=== PATIENT | male | born 1955 | race Caucasian/White ===

== ENCOUNTER → 2017-01-17 | Outpatient (CLI) | payer BC ==
[~2017-01-17] MED LIST: ASPI81TA28 PO; ATOR-22 PO; CARV25TA2 PO; CLOP1TAB15 PO; PRO AIR INH; ROPI0.25 PO; UMEC1AER
--- NOTE | 2017-01-18 08:46 | DIAGNOSTIC IMAGING REPORT ---
ART DOP DUPLEX LWR EXT UNI HISTORY: 61 years-old Male I25.10 Coronary artery [id number] Leg [id number] COMPARISON: None available TECHNIQUE: Multiple real-time sonographic images of the right lower extremity arterial structures were obtained assessing grayscale appearance, color and spectral Doppler analysis. Motorboat Operator reports that the patient did not want the left leg imaged so therefore the right leg was only imaged. Bilateral ankle brachial indices with segmental BP was also obtained. FINDINGS: SEGMENTAL BP: Right: Brachial 125; posterior tibial 49 with TONY of 0.39; dorsalis pedis 43 with TONY of 0.34 Left: Brachial 120; posterior tibial 119 with TONY of 0.95; dorsalis pedis 111 with TONY of 0.89. RIGHT LOWER EXTREMITY ARTERIAL STRUCTURES: Increased flow velocities are seen within the common femoral artery measuring up to 246 cm/s with triphasic morphology. Profunda femoris is patent with triphasic flow. There is occlusion of the proximal and mid femoral artery with reconstitution of flow seen involving the mid to distal aspect of the femoral artery where there are blunted biphasic waveforms present. Low velocities are seen within the distal aspect of the femoral artery measuring in the 45 cm/s range. Additionally, low velocities with blunted predominately biphasic waveforms extend through the popliteal artery including the posterior tibial, peroneal, anterior tibial and dorsalis pedis arteries which are patent. IMPRESSION: 1. Increased flow velocities of the common femoral artery are noted with occlusion of the proximal and mid aspect of the femoral artery with reconstitution of flow within the mid to distal aspect of the femoral artery. 2. Blunted predominately biphasic waveforms are seen within the distal aspect of the femoral artery extending to the level of the foot as above. 3. Decreased segmental pressures on the right as above. 4. Slightly decreased TONY of the left dorsalis pedis artery. The above report was generated using voice recognition software. It may contain grammatical, syntax or spelling errors. Electronically signed by: Sukhdeep Ingram M.D. 01/18/2017 8:45 AM Dictated Date/Time: 01/18/2017 8:35 AM
== END | disposition home or self-care (01) ==
LOC: C.ULTR 13:33
PROVIDERS: ATTEND Physician Assistant
DX: I25.10 Atherosclerotic heart disease of native coronary artery without angina pectoris (principal); R29.898 Other symptoms and signs involving the musculoskeletal system; I70.201 Unspecified atherosclerosis of native arteries of extremities, right leg

== ENCOUNTER 2017-02-20 06:33 | Day surgery (SDC) | payer BC ==
[~2017-02-20] VITALS: Ht 170.2 cm; Wt 64.5 kg
[2017-02-20] VITALS (7 sets, daily range): BP systolic 144–160; BP diastolic 70–81; PULSE 67–95; TEMP 36.3–37; O2SAT 95–99; Ht 170.2 cm; Wt 64.5 kg
--- NOTE | 2017-02-20 06:30 | History and Physical ---
History & Physical Date of Service Feb 20, 2017. History & Physical CC: Right lower extremity ischemia HPI: Mr. Pearl is a 61-year-old gentleman who, after having an open heart this October, developed weakness in his right leg. He is unable to extend his lower extremity at the knee joint. He also has muscle atrophy in that lower extremity. He does not walk without a walker and a brace, so he does not have any complaints of claudication and does not have complaints of rest pain. He does claim that prior to his open heart, he had no symptoms of claudication. He denies any ulcerations of the lower extremity. ALLERGIES: None known. MEDICATIONS: anoro ellipta, aspirin, Coreg, Lipitor, lisinopril, ProAir and ropinirole. No changes were made. PAST MEDICAL HISTORY: Positive for myocardial infarction, coronary bypass grafting and previous stents of the coronary arteries. FAMILY HISTORY: Positive for hypertension, diabetes, tuberculosis, circulatory problems, carotid disease, stroke and kidney disease. SOCIAL HISTORY: He quit smoking in November of this year. He drinks 2 to 3 drinks a week. REVIEW OF SYSTEMS: Ten systems were reviewed, and is only positive findings was heart failure and the HPI. PHYSICAL EXAMINATION: The patient is awake, oriented x3. He is in no apparent distress. Blood pressure 118/60 in the right, 120/60 in the left. Head and neck within normal limits. There are no carotid bruits. His lungs were clear. Heart regular rate and rhythm. Abdominal exam is benign, no aneurysmal dilatation was appreciated. Vascular exam, his radials, carotids, supratemporal arteries +2 bilaterally. Femorals are +2. There are pulses in his left lower extremity cannot appreciate pulses right lower extremity, there is hair growth in both feet. Neurologic exam is intact other than the right lower extremity which shows inability to extend his lower leg. He also lacks patellar tendon reflex in the right leg. IMPRESSION: Right superficial femoral artery occlusion. This was seen on ultrasound exam. PLAN: At this point, we recommended arteriography and possible intervention. Most likely, this denervation may have been vascular in origin with embolizations of right lower extremity, being that he still maintains normal hair growth in the right leg. The event was most likely acute at that time. We did say that if we did open up the artery and increase the flow, we still may not get recovery due to loss of neurological intervention to the muscles of the right lower extremity. He is willing to take that chance to see if we can increase the flow and increase his ability to walk. I would not do a bypass on him yet at this point being he is only 3 months out of open heart unless it was for limb salvage. I have discussed the risks options and benefits of the procedure with the patient. The patient understands the risks options and benefits and agrees to the procedure.
[~2017-02-20 06:33] MED LIST changes: -ASPI81TA28 PO; -ATOR-22 PO; -CARV25TA2 PO; +CEFAZOLIN 1000MG/55 ML D5W IV SCH; -CLOP1TAB15 PO; +PATIENT'S ALLERGY INFO NEEDS ENTERED SCH; -PRO AIR INH; -ROPI0.25 PO; +SODIUM CHLORIDE 0.9% 1000ML IV SCH; -UMEC1AER
[2017-02-20] MEDS ORDERED: ATOR-22 PO (07:03)
[2017-02-20] MEDS ORDERED: ASPI81TA28 PO (07:03)
[2017-02-20] MEDS ORDERED: ROPI0.25 PO (07:11)
[2017-02-20] MEDS ORDERED: PRO AIR INH (07:11)
[2017-02-20] MEDS ORDERED: CARV25TA2 PO (07:11)
[2017-02-20] MEDS ORDERED: UMEC1AER (07:11)
--- NOTE | 2017-02-20 07:28 | Procedure Note ---
Pre-Mod Sedation Assessment General Date of Moderate Sedation: Feb 20, 2017. Pre-Sedation Airway Assessment Mallampati Classification: Class I ASA Classification: Class II Notes The planned sedation has been discussed with the patient and consent obtained. I have identified the patient, determined the appropriateness of sedation and have assessed the patient immediately prior to the procedure. All medicine(s) and interventions are by my order.
--- NOTE | 2017-02-20 07:28 | History & Physical Bridge Note ---
H&P Re-Evaluation Bridge Note: I have examined the patient, reviewed the History & Physical and in the interval since the performance of the History & Physical I have noted the following changes of clinical significance: No changes noted
[2017-02-20 07:33] LABS: BLOOD UREA NITROGEN 12 mg/dl (7-18); CREATININE 0.77 mg/dl (0.60-1.40)
[2017-02-20] MEDS ORDERED: FENTANYL CITRATE INJ 50 MCG/1 ML 2 ML VIAL ONE (07:49)
[2017-02-20] MEDS ORDERED: MIDAZOLAM HCL 1 MG/ML 2ML VIAL ONE (07:49)
[2017-02-20] MEDS ORDERED: HEPARIN SOD (PORCINE) 1000 UNIT/ML 10 ML VIAL ONE (07:49)
[2017-02-20] MEDS ORDERED: FENTANYL CITRATE INJ 50 MCG/1 ML 2 ML VIAL IV ONE ×2 (08:35→09:05)
[2017-02-20] MEDS ORDERED: MIDAZOLAM HCL 1 MG/ML 2ML VIAL IV ONE (08:35)
[2017-02-20] MEDS ORDERED: LIDOCAINE HCL 1% 20 ML VIAL INFIL ONE (08:36)
[2017-02-20] MEDS ORDERED: HEPARIN SOD (PORCINE) 1000 UNIT/ML 10 ML VIAL IV ONE (09:03)
[2017-02-20] MEDS ORDERED: IODIXANOL (VISIPAQUE) 270 MG/ML 150ML XX ONE (10:02)
--- NOTE | 2017-02-20 10:21 | [facility] Post Operative Brief Note ---
Immediate Operative Summary Operative Date Feb 20, 2017. Pre-Operative Diagnosis Right superficial femoral artery occlusion Post-Operative Diagnosis Same Procedure(s) Performed Right Lower Extremity Angiogram Mechanical Artherectomy Superficial Femoral Artery Percutaneous Transluminal Angioplasty Superficial Femoral Artery Superficial Femoral Artery Stent Percutaneous Transluminal Angioplasty of Profunda Mechanical Closure of Left Femoral Artery Moderate Sedation 0520-1874 Surgeon Gagandeep Silver Designer Surgeon(s) None Estimated Blood Loss 10 Findings Palpable PT at end Specimens None Anesthesia Local with sedation Complication(s) None Disposition
--- NOTE | 2017-02-20 10:22 | Procedure Note ---
Post-Moderate Sedation Plan General Date of Moderate Sedation Feb 20, 2017. Vital Signs: Vital Signs Past 12 Hours Date Time Temp Pulse Resp B/P (MAP) Pulse Ox O2 Delivery O2 Flow Rate FiO2 02/20/17 10:01 65 18 134/74 98 Room Air 02/20/17 06:55 36.4 95 18 156/76 (102) 99 Room Air Review - Discharge Plan Post Moderate Sedation Plan: On clinical assessment, the patient appears to have tolerated the conscious sedation without complications. Patient is recovering as anticipated. Patient will continue to be monitored by nursing and may be discharged when conscious sedation discharge criteria are met.
[2017-02-20] MEDS ORDERED: CLOP1TAB15 PO (10:24)
--- NOTE | 2017-02-20 10:25 | Discharge Instructions ---
Discharge Instructions Date of Service Feb 20, 2017. Visit Reason for Visit: Right Superficial Femoral Artery Occlusion Discharge Discharge Diagnosis / Problem: Right superficial femoral artery occlusion Discharge Goals Goal(s): Therapeutic intervention Activity Recommendations Activity Limitations: per Instructions/Follow-up section Anesthesia . Post Anesthesia Instructions: If you have had General Anesthesia or IV Sedation: * Do not drive today. * Resume driving when surgeon permits. * Do not make important decisions or sign legal documents today. * Call surgeon for: 1. Temperature elevations greater than 101 degrees F. 2. Uncontrollable pain. 3. Excessive bleeding. 4. Persistent nausea and vomiting. 5. Medication intolerance (nausea, vomiting or rash). * For nausea and vomiting use only clear liquids such as: tea, soda, bouillon until nausea subsides, then gradually increase diet as tolerated. * If you have any concerns or questions, call your surgeon's office. If physician is unavailable and it is an emergency, call 911 or go to the nearest emergency room. . Instructions / Follow-Up Instructions / Follow-Up Call [phone] to schedule a follow up appointment if one not already scheduled. SPECIAL CARE INSTRUCTIONS: Medications: * Continue to take your medications as directed. If you have been given a prescription for Plavix, please fill it immediately and take as directed. Incision Care: * Your puncture site may have some bruising and minor swelling for about one week. * You will have a small dressing covering your puncture site. You may remove the dressing after 24 hours and shower. You may let the warm soapy water run over it, but be sure to dry the puncture site well and keep it dry. * DO NOT IMMERSE THE INCISION IN A TUB/POOL/etc. UNTIL HEALED. * Puncture sites should be kept covered with a band-aid until it begins to heal. Restrictions: * Depending on whether you leg or arm was punctured to access the arteries, you will be required to lay flat, hold your arm still, or both, for about 4 hours after the procedure to prevent bleeding. * Limit your activity for the first 48 hours. You may walk and go up and down steps. Avoid excessive bending or movement at the puncture site. Possible Complications: * Excessive Swelling - after blood flow is improved you may notice increased swelling in the lower legs. This is a normal response. This usually depends on the amount of blockages in the leg, how long they have been there prior to your procedure and how much blood flow was restored. Elevating your legs will help to improve this. Please notify our office ([phone] ) if the swelling does not go away after lying in bed overnight. * Infection/Drainage/Bleeding - Drainage or bleeding from the puncture site should be minimal. If you have excessive bleeding or drainage, call our office ([phone]) right away. * Pain - You may experience some mild pain or soreness at your puncture site. If your pain does not improve, please contact our office ([phone]). Call your doctor and seek emergent treatment if you develop: * Temperature above 101 degrees * Any fever or chills * Any redness or purulent drainage from the puncture site * Any new dusky/blue colored toes or feet with coolness or sharp or aching pain. SKIN IRRITATION: * You may experience some redness and/or swelling in the area where radiation was administered. If any skin irritation occurs, please contact your family physician. FOLLOW UP VISIT: Keep any scheduled doctor appointments. Diet Recommendations Recommended Home Diet: resume previous diet Procedures Procedures Performed: Right Lower Extremity Angiogram Mechanical Artherectomy Superficial Femoral Artery Percutaneous Transluminal Angioplasty Superficial Femoral Artery Superficial Femoral Artery Stent Percutaneous Transluminal Angioplasty of Profunda Mechanical Closure of Left Femoral Artery Moderate Sedation [id number] Pending Studies Studies pending at discharge: no Medical Emergencies . Who to Call and When: Medical Emergencies: If at any time you feel your situation is an emergency, please call 911 immediately. . Non-Emergent Contact Non-Emergency issues call your: Surgeon . . "Provider Documentation" section prepared by Tom Donis. .
[2017-02-20] MEDS ORDERED: OXYCODONE/ACETAMINOPHEN 5-325 TAB PO PRN (10:30)
[2017-02-20] MEDS ORDERED: CLOPIDOGREL BISULFATE 300 MG TAB PO STA (10:47)
--- NOTE | 2017-02-20 12:16 | DIAGNOSTIC IMAGING REPORT ---
DATE OF PROCEDURE: 02/20/2017 PREOPERATIVE DIAGNOSIS: Right superficial femoral artery occlusion. POSTOPERATIVE DIAGNOSIS: Same. PROCEDURES: 1. Right lower extremity arteriography. 2. Mechanical arthrectomy of the right superficial femoral artery. 3. Percutaneous transluminal angioplasty of superficial femoral artery with stenting. 4. Balloon angioplasty of profunda femoral artery. 5. Mechanical closure of left common femoral artery. 6. Moderate sedation 0835 to 1000. SURGEON: Tom Donis MD ANESTHETIC: Local with sedation. PROCEDURE INDICATIONS: The patient is a 61-year-old gentleman who had open heart surgery in November, weakness in his right leg. At this point, he is unable to extend his lower leg below the knee and he does have muscle atrophy. He needs a walker to walk. He does not have any complaints of claudication, but he does not walk fast enough or far enough to cause claudication. He denies rest pain. He was found to have superficial femoral artery occlusions on noninvasives. We recommended that arteriography and possible revascularization in an attempt to increase the flow to aide in any rehab that he could have that he may have to undertake. I did tell him that it was ensured that will be able to get any more strength back than he has. If we can do any endovascular procedure, we would. If not, we would not do a bypass at this time. He understood the risks, options and benefits of arteriography and endovascular treatment. He elected to go ahead with this procedure hoping that the increase flow would improve his ambulation and rehabilitation. DESCRIPTION OF PROCEDURE: The patient was taken to the angio suite and placed in supine position. After groins were prepped and draped in a sterile manner, local anesthetic was administered. A percutaneous puncture was made of the left common femoral artery. A 5-Pu[place] sheath was inserted. An 0.035 wire and a rim catheter was then inserted through the sheath. The right common iliac was cannulated from the left side. Arteriography was performed. This showed slight irregularity in the external iliac artery on the right side and common femoral artery. There appeared to be a stenosis present in the profunda femoral artery and was appeared to be old dissection extending into the profunda. He had total occlusion in superficial femoral artery down to just above the adductor hiatus. He then reconstituted the distal superficial femoral artery and popliteal artery. Three-vessel runoff was visualized with the posterior tibial being the main vessel to the foot. The peroneal and anterior tibial were visualized, but faded away in the distal third most likely due to flow in time. At this point, a 0.035 stiffened Glidewire was inserted. The rim catheter was removed. Using a 0.035 and an angled glide catheter, the SFA was actually cannulated. Using the glide cath and wire, the wire was passed down through the distal end of the occlusion. Once the wire passed, the angled glide was removed and a Quick-Cross catheter was inserted. This was passed down into the proximal popliteal artery. The wire was removed. Hand injection showed the catheter to be true lumen. The stiffened Glidewire was reinserted. The 5-[place] sheath was exchanged to an 8-[place]ican destination. This was placed with the tip in the right common femoral artery. The Quick-Cross was reinserted. The wire was removed and the jet wire was inserted. Using a 2.1 Jetstream mechanical atherectomy catheter, mechanical arthrectomy was performed. This was done after given 5000 units of heparin. We did 2 passes, 1 with blades down and blades up. There was flow seen through the superficial femoral artery at the end of the second pass. Then, ballooned the entire superficial femoral artery with a 5 x 100 balloon. Once this was completed, the injection showed some irregular flaps seen. It was decided to stent this area. We used two 5 x 100 Tigress stents from the distal superficial femoral artery proximally. This came up to above the proximal third. This was then re-ballooned with a 5 x 100 balloon. Completion angio showed good flow through the stented area. Proximal SFA also had good flow. There was stenosis seen at the SFA and profunda femoral artery origins. I then passed another 0.014 wire through the 8-Pu[place] sheath. This cannulated the profunda femoral artery. I then placed a 4 x 20 balloon in the profunda and a 4.5 x 20 balloon in the superficial femoral artery origins. These kissing balloons were then expanded. This was done up to 8 atmospheres of pressure. Once this was completed, the balloons were removed. Hand injection showed the origins of the SFA and profunda to be widely patent at this time. Good flow was seen distally. At that point, the balloons and wires were removed. The sheath was pulled over to the left side. An 0.035 Glidewire was reinserted. Hand injection was performed showing the puncture to be in the common femoral artery on the left side anteriorly. The destination sheath was pulled and the puncture site closed with a Star closure device. Adequate hemostasis was noted at that time. Sterile dressings were applied to the wound. The patient had a good palpable posterior tibial pulse on the right side at the end of the procedure.
== END 2017-02-20 12:40 | disposition home or self-care (01) ==
LOC: C.ACU 06:33
PROVIDERS: ATTEND Surgery Vascular Surgery
DX: I77.1 Stricture of artery (principal); Z79.899 Other long term (current) drug therapy; I25.2 Old myocardial infarction; Z95.1 Presence of aortocoronary bypass graft; Z79.82 Long term (current) use of aspirin; Z95.5 Presence of coronary angioplasty implant and graft; Z82.49 Family history of ischemic heart disease and other diseases of the circulatory system; Z83.3 Family history of diabetes mellitus; Z82.3 Family history of stroke; Z84.1 Family history of disorders of kidney and ureter

== ENCOUNTER → 2017-06-27 | Day surgery (SDC) | payer BC ==
[2017-06-20 13:29] VITALS: Ht 170.2 cm; Wt 73.2 kg
[~2017-06-27] VITALS: Ht 170.2 cm; Wt 73.2 kg
[~2017-06-27] MED LIST changes: +ALBU18002 INH; +ASPCH81X PO; +CARV25TA2 PO; -CEFAZOLIN 1000MG/55 ML D5W IV SCH; +CLOP1TAB15 PO; +ENDOSCOPIC MARKER 5 ML SYR TOP ONE; +EpHEDrine SULFATE 50MG/5ML SYR ONE; +FENTANYL CITRATE INJ 50 MCG/1 ML 2 ML VIAL ONE; +GABA600T PO; +LIDOCAINE HCL 2% 2 ML VIAL (20MG/ML) ONE; +LISI-789 PO; +LPT40 PO; +MIDAZOLAM HCL 1 MG/ML 2ML VIAL ONE; -PATIENT'S ALLERGY INFO NEEDS ENTERED SCH; +POLY335019 PO; +PROPOFOL IV EMULSION 10 MG/ML 20 ML VIAL IV ONE; +ROPI0.25 PO; -SODIUM CHLORIDE 0.9% 1000ML IV SCH; +SODIUM CHLORIDE 0.9% 500ML 500 ML IV ONE; +UMEC1AER INH
--- NOTE | 2017-06-27 10:22 | Endo History and Physical ---
History & Physical Date of Service: Jun 27, 2017. Chief Complaint: chronic constipation Referring Physician: Dr. No History of Present Illness Chronic constipation Past Medical History Angioplasty/Stent, CABG, COPD, Implantable Defibrillator Past Surgical History Hx Cardiac Surgery: Yes (HEART CATH/2 STENTS, CABG-3 VESSELS) Hx Internal Defibrillator: Yes Hx Pacemaker: No Hx Abdominal Surgery: No Hx Post-Op Nausea and Vomiting: No Hx Cancer Surgery: No Hx Thoracic Surgery: No Hx Orthopedic: No Hx Urinary Tract Surgery: No Family History None Social History Smoking Status: Former Smoker Hx Substance Use: No Hx Alcohol Use: Yes (3 DRINKS DAILY) Allergies Coded Allergies: No Known Allergies (Unverified , 06/27/17) Current Medications Reported Home Medications Medications Dose Route/Sig Max Daily Dose Days Date Category Proair Respiclick (Albuterol Sulfate) 108 Mcg/Act Aer 1-2 Puff INH Q4H PRN 06/20/17 Reported Zestril (Lisinopril) 2.5 Mg Tab 1 Tab PO QAM 06/20/17 Reported Aspirin Chewable (Aspirin) 81 Mg Chew 81 Mg PO BID 06/20/17 Reported Lipitor (Atorvastatin Calcium) 40 Mg Tab 1 Tab PO QAM 06/20/17 Reported Requip (Ropinirole HCl) 0.25 Mg Tab 3 Tab PO QPM 06/20/17 Reported Plavix (Clopidogrel Bisulfate) 75 Mg Tab 75 Mg PO QPM 06/20/17 Reported Miralax (Polyethylene Glycol 3350) 1 Pow Pow 17 Gm PO QPM 06/20/17 Reported Neurontin (Gabapentin) 600 Mg Tab 600 Mg PO QID 06/20/17 Reported Coreg (Carvedilol) 25 Mg Tab 25 Mg PO BID 02/20/17 Reported Anoro Ellipta 62.5-25 Mcg/INH (Umeclidinium-Vilanterol) 1 Aer Aer 1 Puff INH QPM 02/20/17 Reported Vital Signs Weight (Kilograms): 73.18 Height (Feet): 5 Height (Inches): 7 Date Time Temp Pulse Resp B/P (MAP) Pulse Ox O2 Delivery O2 Flow Rate FiO2 06/27/17 10:01 36.6 69 20 159/75 (103) 100 Room Air Physical Exam General Appearance: no apparent distress Respiratory/Chest: Auscultation: breath sounds normal Cardiovascular: Heart Auscultation: RRR Abdomen: Inspection & Palpation: soft, non-distended Assessment and Plan Stable for colonoscopy and consented, understood the risk of complications.
--- NOTE | 2017-06-27 12:35 | Discharge Instructions ---
Endoscopy Patient Instructions Date / Procedure(s) Performed Jun 27, 2017. Colonoscopy Allergy Information Coded Allergies: No Known Allergies (Unverified , 06/27/17) Discharge Date / Findings Jun 27, 2017. Multiple polyps. Diverticulosis Sigmoid spasm Medication Instructions Stopped Medication(s): Stopped Plavix on 06/26 1730,ASA 06/27 Provider Instructions Activity Restrictions - No exercising or heavy lifting for 24 hours. - Do not drink alcohol the day of the procedure. - Do not drive a car or operate machinery until the day after the procedure. - Do not make any important decisions or sign important papers in 24 hours after the procedure. Following Day: - Return to full activity which may include returning to work/school. Diet Start your diet with liquids and light foods (jello, soup, juice, toast). Then eat your usual diet if not nauseated. Treatment For Common After Affects For mild abdominal pain, bloating, or excessive gas: - Rest - Eat lightly - Lie on right side Follow-Up Information Follow-up with Dr. No as scheduled Anesthesia Information What You Should Know You have had a procedure that required some medicine to reduce anxiety and discomfort. This treatment is called moderate sedation. After receiving the treatment, you may be sleepy, but you will be able to breathe on your own. The effects of the treatment may last for several hours. Follow these instructions along with Activity/Diet recommendations noted above: * Do NOT do anything where dizziness or clumsiness would be dangerous. * Rest quietly at home today, then you can be up and about tomorrow. * Have a responsible person stay with you the rest of today. * You may have had an I.V. today. If so, you may take the dressing off later today. Recommendations Call your doctor if: * Trouble breathing * Continuous vomiting for more than 24 hours * Temperature above 101 degrees * Severe abdominal pain or bloating * Pain not relieved by pain medicine ordered * There is increased drainage or redness from any incision * A large amount of rectal bleeding greater than 2-3 tablespoons. (If you had a polyp/s removed or have hemorrhoids, a small amount of blood - from the rectum is to be expected.) * You have any unanswered questions or concerns. IN THE EVENT OF A SERIOUS EMERGENCY, GO TO THE NEAREST EMERGENCY ROOM Your discharge instructions were prepared by provider Naveen Waldrop. Patient Instructions Signature Page Rafael Pearl Patient (or Guardian) Signature/Date: I have read and understand the instructions given to me by my caregivers. Caregiver/RN/Doctor Signature/Date: The above-named patient and/or guardian has received patient instructions on this date. + Original Patient Signature Page (only) stays with chart. Please make copy for patient.
[2017-06-27 12:58] VITALS: BP 132/61; PULSE 52; O2SAT 100
--- NOTE | 2017-06-27 12:58 | Anesthesiology Progress Note ---
Anesthesia Post Op Note Date & Time Jun 27, 2017 at 12:58 Vital Signs Pain Intensity: 0 Vital Signs Past 12 Hours Date Time Temp Pulse Resp B/P (MAP) Pulse Ox O2 Delivery O2 Flow Rate FiO2 06/27/17 12:42 61 20 123/65 (84) 99 Room Air 06/27/17 10:01 36.6 69 20 159/75 (103) 100 Room Air Notes Mental Status: alert / awake / arousable, participated in evaluation Pt Amnestic to Procedure: Yes Nausea / Vomiting: adequately controlled Pain: adequately controlled Airway Patency, RR, SpO2: stable & adequate BP & HR: stable & adequate Hydration State: stable & adequate Anesthetic Complications: no major complications apparent
--- NOTE | 2017-06-27 13:25 | GI REPORT ---
Procedure Date: 06/27/2017 11:01 AM Procedure: Colonoscopy Indications: Constipation Medicines: Monitored Anesthesia Care Complications: No immediate complications. Estimated Blood Loss: Estimated blood loss: none. Procedure: Pre-Anesthesia Assessment: - Prior to the procedure, a History and Physical was performed, and patient medications and allergies were reviewed. The patient is competent. The risks and benefits of the procedure and the sedation options and risks were discussed with the patient. All questions were answered and informed consent was obtained. Patient identification and proposed procedure were verified by the physician and the nurse in the procedure room. Mental Status Examination: alert and oriented. Airway Examination: normal oropharyngeal airway and neck mobility. Respiratory Examination: clear to auscultation. CV Examination: normal. ASA Grade Assessment: III - A patient with severe systemic disease. After reviewing the risks and benefits, the patient was deemed in satisfactory condition to undergo the procedure. The anesthesia plan was to use monitored anesthesia care (MAC). Immediately prior to administration of medications, the patient was re-assessed for adequacy to receive sedatives. The heart rate, respiratory rate, oxygen saturations, blood pressure, adequacy of pulmonary ventilation, and response to care were monitored throughout the procedure. The physical status of the patient was re-assessed after the procedure. After I obtained informed consent, the scope was passed under direct vision. Throughout the procedure, the patient's blood pressure, pulse, and oxygen saturations were monitored continuously. The Scope was introduced through the anus and advanced to the terminal ileum. The colonoscopy was performed without difficulty. The patient tolerated the procedure well. The quality of the bowel preparation was good. The terminal ileum, ileocecal valve, appendiceal orifice, and rectum were photographed. Scope withdrawal time was 25 minutes. Findings: The perianal and digital rectal examinations were normal. The terminal ileum appeared normal. A 4 mm polyp was found in the ascending colon. The polyp was sessile. The polyp was removed with a cold biopsy forceps. Resection and retrieval were complete. Verification of patient identification for the specimen was done by the physician and nurse using the patient's name and date. A 8 mm polyp was found in the descending colon. The polyp was sessile. The polyp was removed with a hot snare. Resection and retrieval were complete. To prevent bleeding after the polypectomy, two hemostatic clips were successfully placed (MR conditional). There was no bleeding at the end of the procedure. A 12 mm polyp was found in the sigmoid colon. The polyp was sessile. The polyp was removed with a saline injection-lift technique using a hot snare. Resection and retrieval were complete. To prevent bleeding after the polypectomy, three hemostatic clips were successfully placed (MR conditional). There was no bleeding at the end of the procedure. A 20 mm polyp was found in the sigmoid colon. The polyp was semi-pedunculated. An endoloop was maneuvered over the polyp stalk and closed at the mucosal attachment prior to removal in order to prevent bleeding. The polyp was removed with a hot snare. Resection and retrieval were complete. To prevent bleeding after the polypectomy, four hemostatic clips were successfully placed (MR conditional). There was no bleeding at the end of the procedure. Area was tattooed with an injection of 1 mL of Spot (carbon black). Multiple small and large-mouthed diverticula were found in the sigmoid colon and descending colon. There was moderate spasm and tortuosity in the sigmoid colon. The retroflexed view of the distal rectum and anal verge was normal and showed no anal or rectal abnormalities. Impression: - The examined portion of the ileum was normal. - One 4 mm polyp in the ascending colon, removed with a cold biopsy forceps. Resected and retrieved. - One 8 mm polyp in the descending colon, removed with a hot snare. Resected and retrieved. Clips (MR conditional) were placed. - One 12 mm polyp in the sigmoid colon, removed using injection-lift and a hot snare. Resected and retrieved. Clips (MR conditional) were placed. - One 20 mm polyp in the sigmoid colon, removed with a hot snare. Resected and retrieved. Clips (MR conditional) were placed. Tattooed. - Diverticulosis in the sigmoid colon and in the descending colon. - Moderate colonic spasm. - The distal rectum and anal verge are normal on retroflexion view. Recommendation: - Discharge patient to home. - Await pathology results. - Repeat colonoscopy in 6 months to review the polypectomy site. - Return to referring physician. Naveen Waldrop MD 06/27/2017 1:24:42 PM This report has been signed electronically. Note Initiated On: 06/27/2017 11:01 AM I attest to the content of the Intraoperative Record and orders documented therein, exceptions below
== END | disposition home or self-care (01) ==
LOC: C.GI 09:37
PROVIDERS: ATTEND Student in an Organized Health Care Education/Training Program
DX: K59.09 Other constipation (principal); D12.4 Benign neoplasm of descending colon; D12.5 Benign neoplasm of sigmoid colon; D12.2 Benign neoplasm of ascending colon; K57.30 Diverticulosis of large intestine without perforation or abscess without bleeding; K58.9 Irritable bowel syndrome, unspecified; J44.9 Chronic obstructive pulmonary disease, unspecified; I25.2 Old myocardial infarction; I25.10 Atherosclerotic heart disease of native coronary artery without angina pectoris; I10 Essential (primary) hypertension; E78.5 Hyperlipidemia, unspecified; I73.9 Peripheral vascular disease, unspecified; Z79.02 Long term (current) use of antithrombotics/antiplatelets; Z95.5 Presence of coronary angioplasty implant and graft; Z95.0 Presence of cardiac pacemaker; Z87.891 Personal history of nicotine dependence; Z79.82 Long term (current) use of aspirin

== ENCOUNTER → 2017-07-17 | Outpatient (CLI) | payer BC ==
[~2017-07-17] MED LIST changes: -ENDOSCOPIC MARKER 5 ML SYR TOP ONE; -EpHEDrine SULFATE 50MG/5ML SYR ONE; -FENTANYL CITRATE INJ 50 MCG/1 ML 2 ML VIAL ONE; -LIDOCAINE HCL 2% 2 ML VIAL (20MG/ML) ONE; -MIDAZOLAM HCL 1 MG/ML 2ML VIAL ONE; -PROPOFOL IV EMULSION 10 MG/ML 20 ML VIAL IV ONE; -SODIUM CHLORIDE 0.9% 500ML 500 ML IV ONE
--- NOTE | 2017-07-17 11:52 | DIAGNOSTIC IMAGING REPORT ---
L-SPINE MIN 4 VIEWS ROUTINE HISTORY: 61 years-old Male LUMBAGO chronic low back pain COMPARISON: None available TECHNIQUE: 5 views of the lumbar spine FINDINGS: 5 nonrib-bearing lumbar type vertebral segments are present. Multilevel endplate spurring and facet arthropathy is noted without significant intervertebral disc space narrowing, acute fracture or subluxation identified. Atherosclerosis of the aorta. Surgical clip projects over the left iliac wing. Radiodensities projecting over the right renal shadow are seen measuring up to 5 mm suggesting nephrolithiasis. Pacer/ACD lead is noted overlying the heart. IMPRESSION: 1. Multilevel spondylosis and facet arthropathy without acute fracture or subluxation. 2. Right-sided nephrolithiasis. The above report was generated using voice recognition software. It may contain grammatical, syntax or spelling errors. Electronically signed by: Sukhdeep Ingram M.D. 07/17/2017 11:51 AM Dictated Date/Time: 07/17/2017 11:49 AM
== END | disposition home or self-care (01) ==
LOC: C.RADBC 11:34
PROVIDERS: ATTEND Physician Assistant Medical
DX: M54.5 Low back pain (principal); M47.816 Spondylosis without myelopathy or radiculopathy, lumbar region; N20.0 Calculus of kidney

== ENCOUNTER 2021-09-22 20:02 | Inpatient (IN) ==
[2021-09-22] MEDS ORDERED: ALBUT/IPRATROP 3MG/0.5MG NEB 3 ML VIAL NEB STA (20:35)
--- NOTE | 2021-09-22 20:37 | Emergency Department Note ---
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 Patient states that he has had some increasing shortness of breath throughout the day today, on arrival here to the ED he is saturating 86% on room air and therefore was placed on nasal cannula oxygen with good improvement. He tells me he does not wear oxygen at baseline. Patient denies any chest pain. On arrival here to the ED he is otherwise hemodynamically stable now on nasal cannula oxygen. ROS: -Pulmonary: Shortness of breath -MSK: Lower extremity edema *10 point review systems was conducted and is otherwise negative unless stated above *Outpatient medications and allergy history reviewed PE: General: Alert, NAD, thin build HEENT: Normocephalic, atraumatic Eyes: Extraocular eye movement is intact, no scleral erythema Pulmonary: Diminished breath sounds bilaterally without wheezing Cardio: Regular rate and rhythm GI: Abdomen is soft, nontender : No suprapubic tenderness MSK: No evidence of trauma or malformation of the extremities, 2-3+ PE b/l LEs Skin: No evidence of rash Neuro: Alert, no focal deficits Psychiatric: Cooperative ekg monitor tech: - An order was placed for continuous cardiac monitoring - Patient was noted to be in sinus rhythm with rate of 70 EKG: Rate: 76 Rhythm: Normal sinus rhythm Intervals: Within normal limits ST changes: No ST elevation Time: 2034 CTA CHEST: Trace bilateral pleural effusions. Left lower lobe granuloma. Right upper lobe posterior irregular nodule abutting the pleural surface measuring 7 mm. Faint groundglass like opacity in the right middle lobe subcentimeter nodules in the periphery of the lingula as well. No evidence of pneumothorax. Small and prominent nodes in the mediastinum and hunter. The heart is large. Atherosclerosis including coronary artery calcifications. Pacer lead in the right ventricle. No PE. Upper abdomen intact. No acute findings in the bones. Comparison October 12, 2020. Impression: No PE. Trace pleural effusions. Possible developing small infiltrate in the right middle lobe. New bilateral lung nodules which require follow-up to exclude neoplasm. Radiologist: Ronald Ramos M.D. Medical Decision Making: Patient presented to the emergency department with increasing shortness of br eath throughout the day today. On arrival his oxygen saturation is 86%. He was placed on nasal cannula oxygen with good improvement at 3 L. IV was established, patient was placed on the cafeteria monitor, lab work was sent. Lab work shows evidence of elevated BNP level at approximately 2000, CT angiography of the chest does not show any evidence of pulmonary embolism, does show some possible developing small infiltrate in the right middle lobe however patient does not have any fever, he does not have any leukocytosis. Lab work shows multiple electrolyte abnormalities including hyponatremia at 115, hypochloremia at 74, patient was given a DuoNeb breathing treatment as well as IV Solu-Medrol here in the ED given that his venous blood gas does show evidence of hypercarbic respiratory failure. High-sensitivity troponin is 21.6. On my reassessment the patient is resting comfortably in bed, he is stable on nasal cannula oxygen, will hold off on diuresis given the patient's hyponatremia. Hold off on fluids given that he has bilateral lower extremity edema. We will defer further management of his hyponatremia to the hospitalist service at this time given that his mentation is at baseline, he has not had any seizures. Case was discussed with the on-call hospitalist, Dr. Mayer, who is in agreement for admission. Patient was admitted in stable condition. * CRITICAL CARE TIME: ( 45 ) minutes -Management of patient with hypoxia with oxygen saturations less than 90% on room air requiring supplemental oxygen for stabilization/correction, management of patient with critical electrolyte abnormality of hyponatremia 115, interpretation of diagnostic studies, time spent at the bedside, arrangement of admission. Diagnosis: 1. Hypoxia 2. Hypercarbic respiratory failure 3. Hyponatremia 4. Hypochloremia Disposition: Admission Konstantin Bull DO Emergency Medicine Past Med/Surg History Medical History Anemia CAD (coronary artery disease) COPD (chronic obstructive pulmonary disease) Ischemic cardiomyopathy with implantable cardioverter-defibrillator (ICD) Lesion of vocal fold Myocardial infarct Peripheral vascular disease Surgical History History of cardiac cath History of coronary artery bypass graft History of surgery on extremity History of throat surgery Family History Mother Diabetes Brother Hypertension Myocardial infarction Denies family history of Ovarian cancer Prostate cancer Breast cancer Colorectal cancer Social History Smoking Status: Current some day smoker Tobacco Type: Cigarettes Cigarettes Per Day: 5; Second Hand Exposure: No; Hx Alcohol Use: Yes Alcohol type: beer Alcohol Intake Frequency Comment: 2-3 drinks a day Hx Substance Use: No Preferred Language: Arabic Communication Ability: Effective Visual Impairment: No Limitations Wood Heel Back Liner Required: No Beliefs That Will Affect Care: None marital status: Single Current Living Situation: Alone current occupational status: retired Feels Safe at Home: Yes Childhood Exposure to Second-Hand Smoke: Yes caffeine: Yes Dental Care, Regularly: No Physical Activity Frequency: Daily Seatbelt Use: never Sunscreen Use: No Allergies Allergies Allergy/AdvReac Type Severity Reaction Status Date / Time No Known Allergies Allergy Verified 09/22/21 21:08 Home Meds Home Medications Medication Instructions Recorded Confirmed aspirin 81 mg tablet,delayed 81 mg PO BID 06/04/19 09/22/21 release (Adult Aspirin Regimen) furosemide 20 mg tablet 20 mg PO DAILY 09/22/21 09/22/21 gabapentin 600 mg tablet 600 mg PO QID 09/22/21 09/22/21 levofloxacin 500 mg tablet 500 mg PO DAILY 09/22/21 09/22/21 Previous Rx's Medication Instructions Recorded metoprolol succinate 50 mg 50 mg PO DAILY #30 tab 06/09/21 tablet,extended release 24 hr Results & Data (ED) Vital Signs Vital Signs - 24 hr 09/22/21 20:20 09/22/21 21:02 09/22/21 21:51 Temperature 36.5 C Temperature Source Temporal Artery Scan Pulse Rate 76 Pulse Rate [Apical] 76 Respiratory Rate 20 19 Respiratory Effort / Characteristics Non-Labored Nasal Flaring Pursed Lip Tripoding Spontaneous SOB on Exertion Respiratory Depth Normal Respiratory Pattern Regular Blood Pressure 105/62 Blood Pressure [Left Arm] 164/59 H Blood Pressure Mean 76 Blood Pressure Mean [Left Arm] 94 Blood Pressure Position Sitting Pulse Oximetry 86 L 95 95 Oxygen Delivery Method Room Air Nasal Cannula Nasal Cannula Oxygen Flow Rate 3 3 Fraction of Inspired Oxygen 95 Sepsis Recent Fever Within 48 Hours No Sepsis New/Unexplained Change in Mental Status N/A Sepsis Action Taken by Nursing No Action Required 09/22/21 22:26 Temperature Temperature Source Pulse Rate Pulse Rate [Apical] 75 Respiratory Rate 19 Respiratory Effort / Characteristics Respiratory Depth Respiratory Pattern Blood Pressure Blood Pressure [Left Arm] 126/70 Blood Pressure Mean Blood Pressure Mean [Left Arm] 88 Blood Pressure Position Pulse Oximetry 100 Oxygen Delivery Method Nasal Cannula Oxygen Flow Rate Fraction of Inspired Oxygen Sepsis Recent Fever Within 48 Hours Sepsis New/Unexplained Change in Mental Status Sepsis Action Taken by Nursing Laboratory Data Result diagrams: 09/22/21 20:45 09/22/21 20:45 Lab Results 09/22/21 09/22/21 09/22/21 Range/Units 20:45 20:45 20:45 WBC 5.71 (4.8-10.8) K/uL RBC 3.89 L (4.7-6.1) M/uL Hgb 12.9 L (14.0-18.0) g/dL Hct 37.1 L (42-52) % MCV 95.4 (80-100) fL MCH 33.2 (25-34) pg MCHC 34.8 (32-36) g/dL RDW Std Deviation 44.9 (36.4-46.3) fL RDW Coeff of Erik 13.0 (11.5-14.5) % Plt Count 118 L (130-400) K/uL MPV 9.2 (7.4-10.4) fL Immature Gran % (Auto) 0.4 % Neut % (Auto) 79.3 % Lymph % (Auto) 14.7 % Jewell % (Auto) 4.7 % Eos % (Auto) 0.7 % Baso % (Auto) 0.2 % Neut # (Auto) 4.53 (1.4-6.5) K/uL Lymph # (Auto) 0.84 L (1.2-3.4) K/uL Jewell # (Auto) 0.27 (0.11-0.59) K/uL Eos # (Auto) 0.04 (0-0.5) K/uL Baso # (Auto) 0.01 (0-0.2) K/uL Immature Gran # (Auto) 0.02 (0.00-0.02) K/uL PT 10.9 (9.0-12.0) Seconds INR 1.0 (0.9-1.1) APTT 31.0 (21.0-31.0) Seconds PTT Ratio 1.1 VBG pH (7.36-7.41) VBG pCO2 (38-50) mmHg VBG pO2 mmHg VBG HCO3 mmol/L VBG O2 Saturation % VBG Base Excess mEq/L Barometric Pressure mm/Hg Sodium 115 L* (136-145) mmol/L Potassium 4.0 (3.5-5.1) mmol/L Chloride 74 L (98-107) mmol/L Carbon Dioxide 35 H (21-32) mmol/L Anion Gap 6 (3-11) BUN 16 (6-23) mg/dl Creatinine 0.95 (0.6-1.4) mg/dl Est Cr Clr Drug Dosing 59.3 ml/min Est GFR ( Amer) 96.3 ml/min Est GFR (Non-Af Amer) 83.1 ml/min BUN/Creatinine Ratio 16.8 (10-20) Glucose 83 (70-99(Fasting)) mg/dl Calcium 8.8 (8.5-10.1) mg/dl Magnesium 1.6 L (1.7-2.4) mg/dl Total Bilirubin 1.0 (0.2-1.0) mg/dl AST 36 (13-39) U/L ALT 20 (7-52) U/L Alkaline Phosphatase 97 (34-104) U/L Troponin I High Sens 21.6 H (0-20) pg/ml B-Natriuretic Peptide (0-100) pg/ml Total Protein 7.2 (6.0-8.3) gm/dl Albumin 4.0 (3.4-5.0) gm/dl Globulin 3.2 (2.5-4.0) gm/dl Albumin/Globulin Ratio 1.3 (0.9-2) SARS-CoV-2, RNA, NAAT (NEGATIVE) 09/22/21 09/22/21 09/22/21 Range/Units 20:45 20:45 21:54 WBC (4.8-10.8) K/uL RBC (4.7-6.1) M/uL Hgb (14.0-18.0) g/dL Hct (42-52) % MCV (80-100) fL MCH (25-34) pg MCHC (32-36) g/dL RDW Std Deviation (36.4-46.3) fL RDW Coeff of Erik (11.5-14.5) % Plt Count (130-400) K/uL MPV (7.4-10.4) fL Immature Gran % (Auto) % Neut % (Auto) % Lymph % (Auto) % Jewell % (Auto) % Eos % (Auto) % Baso % (Auto) % Neut # (Auto) (1.4-6.5) K/uL Lymph # (Auto) (1.2-3.4) K/uL Jewell # (Auto) (0.11-0.59) K/uL Eos # (Auto) (0-0.5) K/uL Baso # (Auto) (0-0.2) K/uL Immature Gran # (Auto) (0.00-0.02) K/uL PT (9.0-12.0) Seconds INR (0.9-1.1) APTT (21.0-31.0) Seconds PTT Ratio VBG pH 7.34 L (7.36-7.41) VBG pCO2 69 H (38-50) mmHg VBG pO2 24 mmHg VBG HCO3 37 mmol/L VBG O2 Saturation < 60.0 % VBG Base Excess 8.9 mEq/L Barometric Pressure 733.0 mm/Hg Sodium (136-145) mmol/L Potassium (3.5-5.1) mmol/L Chloride (98-107) mmol/L Carbon Dioxide (21-32) mmol/L Anion Gap (3-11) BUN (6-23) mg/dl Creatinine (0.6-1.4) mg/dl Est Cr Clr Drug Dosing ml/min Est GFR ( Amer) ml/min Est GFR (Non-Af Amer) ml/min BUN/Creatinine Ratio (10-20) Glucose (70-99(Fasting)) mg/dl Calcium (8.5-10.1) mg/dl Magnesium (1.7-2.4) mg/dl Total Bilirubin (0.2-1.0) mg/dl AST (13-39) U/L ALT (7-52) U/L Alkaline Phosphatase (34-104) U/L Troponin I High Sens (0-20) pg/ml B-Natriuretic Peptide 1975 H (0-100) pg/ml Total Protein (6.0-8.3) gm/dl Albumin (3.4-5.0) gm/dl Globulin (2.5-4.0) gm/dl Albumin/Globulin Ratio (0.9-2) SARS-CoV-2, RNA, NAAT NEGATIVE (NEGATIVE) Administered Medications Discontinued Medications Albuterol (Albut/Ipratrop 3mg/0.5mg Neb 3 Ml Vial) 3 ml NEB NOW STA; Protocol Stop: 09/22/21 20:36 Last Admin: 09/22/21 22:27 Dose: 3 ml Documented by: [id number] Ioversol (Optiray 320 125ml) 118 ml IV ONCE ONE Stop: 09/22/21 22:09 Last Admin: 09/22/21 22:10 Dose: 118 ml Documented by: [id number] Methylprednisolone (Methylprednisolone 125 Mg/2 Ml Vial) 125 mg IV NOW STA Stop: 09/22/21 21:20 Last Admin: 09/22/21 22:27 Dose: 125 mg Documented by: [id number] Discharge Plan Visit Data Chief Complaint: Shortness of Breath/Dyspnea Stated Complaint: SWELLING IN LEGS, SOB ED Provider: Konstantin Bull Discharge Problem: Hypoxia Forms Stand Alone Forms: [facility] [email or web address] Prescriptions Prescriptions: No Action metoprolol succinate 50 mg tablet extended release 24 hr 50 mg PO DAILY Qty: 30 RF: 5 aspirin [Adult Aspirin Regimen] 81 mg tablet,delayed release (DR/EC) 81 mg PO BID RF: 0 furosemide 20 mg tablet 20 mg PO DAILY RF: 0 levofloxacin 500 mg tablet 500 mg PO DAILY RF: 0 gabapentin 600 mg tablet 600 mg PO QID RF: 0 Referrals Referrals: Riri Mosqueda MD [Primary Care Provider] -
[2021-09-22 20:53] LABS: Basophils # (auto) 0.01 K/uL (0-0.2); Basophils % (auto) 0.2 %; Eosinophils # (auto) 0.04 K/uL (0-0.5); Eosinophils % (auto) 0.7 %; Hematocrit (blood only) 37.1 % (42-52); Hemoglobin 12.9 g/dL (14.0-18.0); Immature Granulocytes # (auto) 0.02 K/uL (0.00-0.02); Immature Granulocytes % (auto) 0.4 %; Lymphocytes # (auto) 0.84 K/uL (1.2-3.4); Lymphocytes % (auto) 14.7 %; Mean Corpuscular Hemoglobin 33.2 pg (25-34); Mean Corpuscular Hgb Conc 34.8 g/dL (32-36); Mean Corpuscular Volume 95.4 fL (80-100); Mean Platelet Volume 9.2 fL (7.4-10.4); Monocytes # (auto) 0.27 K/uL (0.11-0.59); Monocytes % (auto) 4.7 %; Neutrophils # (auto) 4.53 K/uL (1.4-6.5); Neutrophils % (auto) 79.3 %; Platelet Count 118 K/uL (130-400); RDW Standard Deviation 44.9 fL (36.4-46.3); Red Blood Count 3.89 M/uL (4.7-6.1); White Blood Count 5.71 K/uL (4.8-10.8)
[2021-09-22 21:07] LABS: Partial Thromboplastin Ratio 1.1; Prothrombin Time 10.9 Seconds (9.0-12.0)
[2021-09-22 21:09] LABS: Base Excess VBG 8.9 mEq/L; HCO3 VBG 37 mmol/L; Oxygen Saturation VBG < 60.0 %; PCO2 VBG 69 mmHg (38-50); PO2 VBG 24 mmHg; pH VBG 7.34 (7.36-7.41)
[2021-09-22] MEDS ORDERED: methylPREDNISolone 125 MG/2 ML VIAL IV STA (21:19)
[2021-09-22 21:22] LABS: Albumin Globulin Ratio 1.3 (0.9-2); BUN Creatinine Ratio 16.8 (10-20); Calcium 8.8 mg/dl (8.5-10.1); Creatinine Clr Calc Pharmacy 59.3 ml/min; Est GFR (African American) 96.3 ml/min; Est GFR (Non-African American) 83.1 ml/min; Globulin 3.2 gm/dl (2.5-4.0); Magnesium 1.6 mg/dl (1.7-2.4); Total Protein 7.2 gm/dl (6.0-8.3); Troponin I High Sensitivity 21.6 pg/ml (0-20)
[2021-09-22] MEDS ORDERED: OPTIRAY 320 125ml IV ONE (22:08)
[2021-09-22] MEDS ORDERED: FUROSEMIDE 40 MG/4 ML VIAL IV STA (23:10)
--- NOTE | 2021-09-22 23:33 | History & Physical Report ---
Date of Service September 22, 2021 Assessment & Plan (1) Hyponatremia: Plan: 66yo male with history of CAD s/p CABG, VT/VF s/p AICD placement, ICM with reduced EF of 20-25% presenting with progressive LE edema x 2 weeks, SOB x 1 day. Found to be hyponatremic with Wp=250. Patient with chronic hyponatremia, however, Na 124-129 over the last two readings. Possible mild symptoms in form of worsening balance, somnolence. No seizure. Suspect hypervolemic hyponatremia secondary to acute decompensated CHF. Possible component of SIADH as well as patient with multiple lung lesions. -Admit to PCU -Check urine and serum osmolality, urine Na -Lasix 40mg IV given in ER, will redose pending repeat chemistry -Fluid restriction <1000mL/day -Monitor UOP, daily weights -BMP q 4 hours -Hypertonic saline if mental status declines, seizure, worsening Na level -Nephrology consultation appreciated - ?use of tolvaptan for chronic hyponatremia in CHF (2) Hypoxia: Plan: Patient with hypoxia on arrival, improved with 2L O2 by NC. Ddx to include pulmonary edema, CHF. Wheezing present on exam. Patient reports being diagnosed recently with PNA and was prescribed Levaquin which he has not yet started. He denies fever/chills/rigors, no leukocytosis. Some groundglass findings at RML ?developing infectious process -Check procalcitonin -Will hold antibiotics for now -DuoNeb q 4hr -Albuterol q2 PRN -Continue supplemental O2 as needed, goal saturation 88-92% in patient with COPD (3) Ischemic cardiomyopathy with implantable cardioverter-defibrillator (ICD): Plan: Patient with CAD s/p CABG, VT/VF arrest s/p AICD placement. No device discharge reported. Patient has severely reduced EF of 20-25% per last echo in 2019. Medications presently ASA and Metoprolol. -Continue ASA -Continue Metoprolol -Patient may benefit from management with TERA-inhibitor or Entresto, possible SGLT2 -May benefit from referral to CHF clinic (4) Lung mass: Plan: Noted irregular lung mass on imaging. Patient with longstanding history of smoking - continues to smoke -Consider Pulmonary referral for additional workup (5) Laryngeal squamous cell carcinoma: Plan: s/p chemo and XRT. Cancer free, no active ongoing treatments at this time -Outpatient followup as instructed (6) Anemia: Plan: Stable. No active bleeding -Continue to monitor (7) CAD (coronary artery disease): Plan: Patient without chest pain. Mild elevation of troponin. -Telemetry monitoring -Repeat troponin with next blood draw -Continue ASA and Metoprolol. Consider initiation of additional therapies such as TERA/ARB or Entresto therapy -Check 2D echo (8) COPD (chronic obstructive pulmonary disease): Plan: Diffuse wheezing -DuoNeb q 4 hours -Albuterol q2 hours PRN Plan: F/E/N - Lasix 40mg IV x 1, re-dose as needed, Mg repletion, repeat chemistry q 4 hours, AHA/Fluid restriction Ppx - Lovenox 40 Code - Full per discussion with patient Dispo - Admit to PCU History of Present Illness Chief Complaint: SOB Primary Care Provider: Riri Mosqueda MD Rafael Pearl is a 66yo male with history of CAD s/p remote inferior wall WI, CABG in 2017, ischemic cardiomyopathy (last EF on record 20-25% in 2019) VT/VF arrest in 2017 s/p AICD placement, COPD, current smoker, chronic hyponatremia presenting with progressive bilateral LE edema as well as SOB. Patient reports worsening bilateral LE edema over the last two weeks. Swelling is into his thighs bilaterally. Today he developed shortness of breath and ALLRED. He has a cough productive for clear sputum, "dark" on occasion but no hemoptysis. Patient was diagnosed with Pneumonia last week and was given a prescription for Levaquin. He filled the prescription today but hasn't taken any of the medication yet. He denies fever, chills, sweats, rigors. Denies chest pain, palpitations, abdominal pain, nausea, vomiting, diarrhea or constipation. He reports he is eating well, having normal BMs and UOP. He does report some fatigue as well as episodes of confusion and poor balance. No additional complaints at this time. In the ER patieint afebrile, HD stable. Hypoxic on arrival to 86% on room air. He was placed on 2L NC with improvement in saturations, presently 100%. ER Course: Albuterol 3mL neb, Solumedrol 125mg Allergies Allergy/AdvReac Type Severity Reaction Status Date / Time No Known Allergies Allergy Verified 09/22/21 21:08 Home Medications Medication Instructions Recorded Confirmed Type aspirin 81 mg tablet,delayed 81 mg PO BID 06/04/19 09/22/21 History release (Adult Aspirin Regimen) metoprolol succinate 50 mg 50 mg PO DAILY #30 tab 06/09/21 09/22/21 Rx tablet,extended release 24 hr furosemide 20 mg tablet 20 mg PO DAILY 09/22/21 09/22/21 History gabapentin 600 mg tablet 600 mg PO QID 09/22/21 09/22/21 History levofloxacin 500 mg tablet 500 mg PO DAILY 09/22/21 09/22/21 History Past Med/Surg History Medical History (Updated 09/22/21 @ 23:32 by Roselia Mayer DO) Anemia Chronic- stable CAD (coronary artery disease) Stents placed > 10 years ago; 3 vessel CABG 2017 COPD (chronic obstructive pulmonary disease) Ischemic cardiomyopathy with implantable cardioverter-defibrillator (ICD) 05/2019 ECHO shows EF of 20-25% MEDTRON[employer] DEFIB IMPLANTED AFTER CABG X 3 in 2017 Lesion of vocal fold PATIENT STATES DR DHILLON ATTEMPTED TO PASS SCOPE AND UNABLE. HE NEEDS THIS PROCEDURE (DIRECT MICROLAYNGOSCOPY WITH BIOPSIES)- CONCERNS FOR LARYNGEAL CANCER 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- CARDIAC ARREST WHILE DRIVING - HE WAS DEFIBRILLATED AT THE SCENE AND TAKEN TO [facility] AND THEN LIFEFLIGHT[facility] TO [facility] Peripheral vascular disease HAS STENT IN RIGHT LEG Surgical History History of cardiac cath HAD CATH AROUND 2006 WITH STENT; THEN IN 11/2016 HAD CATH WITH CABG X3 FOLLOW WITH [facility] History of coronary artery bypass graft 2017- CARABALLO to LAD, SVG to OM, SVG to PDA History of surgery on extremity RIGHT LEG AND HAD STENT PLACED 2016 History of throat surgery direct microlaryngoscopy with biopsies-06/25/2019-Dr. Dhillon Family History Mother Diabetes Brother Hypertension Myocardial infarction Denies family history of Ovarian cancer Prostate cancer Breast cancer Colorectal cancer Social History Smoking Status: Current some day smoker Tobacco Type: Cigarettes Cigarettes Per Day: 5; Second Hand Exposure: No; Hx Alcohol Use: Yes Alcohol type: beer Alcohol Intake Frequency Comment: 2-3 drinks a day Hx Substance Use: No Preferred Language: Upper Sorbian Communication Ability: Effective Visual Impairment: No Limitations Sheet Rock Layer Required: No Beliefs That Will Affect Care: None marital status: Single Current Living Situation: Alone current occupational status: retired Feels Safe at Home: Yes Childhood Exposure to Second-Hand Smoke: Yes caffeine: Yes Dental Care, Regularly: No Physical Activity Frequency: Daily Seatbelt Use: never Sunscreen Use: No Review of Systems Review of Systems: All systems reviewed & are unremarkable except as noted in HPI & below Physical Exam Physical Exam: General: patient somnolent, arousable, answers questions appropriately and follows commands Skin: warm, dry, intact, no rashes or lesions HEENT: NC/AT, PERRL, EOMI, anicteric sclera, conjunctiva without injection, external ear normal to inspection and nontender, nares patent, moist mucus membranes, dentition intact, no oropharyngeal lesions, neck supple, trachea midline, no LAD, no thyromegaly, no JVD Heart: +S1/S2, regular, no m/r/g Lungs: diminished breath sounds bilaterally with inspiratory and expiratory wheezing bilaterally Abd: +BS, soft, NT/ND, no masses/organomegaly/ascites Ext: warm, 2+ pulses in UE/LE bilaterally, no clubbing/cyanosis, 3+ edema to thighs bilaterally Neuro: nonfocal, patient AA&O x 4, speech intact, +hoarseness, no facial droop, moving all extremities on command with equal strength 5/5 Results & Data Results & Data ([facility]) Vital Signs (Past 12 Hours) Vital Signs Temp Pulse Pulse Resp BP BP Pulse Ox 09/22/21 22:26 75 19 126/70 100 09/22/21 21:51 95 09/22/21 21:02 76 19 164/59 H 95 09/22/21 20:20 36.5 C 76 20 105/62 86 L Laboratory Results Laboratory Results WBC 5.71 K/uL (4.8-10.8) 09/22/21 20:45 RBC 3.89 M/uL (4.7-6.1) L 09/22/21 20:45 Hgb 12.9 g/dL (14.0-18.0) L 09/22/21 20:45 Hct 37.1 % (42-52) L 09/22/21 20:45 MCV 95.4 fL (80-100) 09/22/21 20:45 MCH 33.2 pg (25-34) 09/22/21 20:45 MCHC 34.8 g/dL (32-36) 09/22/21 20:45 RDW Std Deviation 44.9 fL (36.4-46.3) 09/22/21:45 RDW Coeff of Erik 13.0 % (11.5-14.5) 09/22/21 20:45 Plt Count 118 K/uL (130-400) L 09/22/21 20:45 MPV 9.2 fL (7.4-10.4) 09/22/21 20:45 Immature Gran % (Auto) 0.4 % 09/22/21 20:45 Neut % (Auto) 79.3 % 09/22/21 20:45 Lymph % (Auto) 14.7 % 09/22/21 20:45 [place]ard % (Auto) 4.7 % 09/22/21 20:45 Eos % (Auto) 0.7 % 09/22/21 20:45 Baso % (Auto) 0.2 % 09/22/21 20:45 Neut # (Auto) 4.53 K/uL (1.4-6.5) 09/22/21 20:45 Lymph # (Auto) 0.84 K/uL (1.2-3.4) L 09/22/21 20:45 Seward # (Auto) 0.27 K/uL (0.11-0.59) 09/22/21 20:45 Eos # (Auto) 0.04 K/uL (0-0.5) 09/22/21 20:45 Baso # (Auto) 0.01 K/uL (0-0.2) 09/22/21 20:45 Immature Gran # (Auto) 0.02 K/uL (0.00-0.02) 09/22/21 20:45 PT 10.9 Seconds (9.0-12.0) 09/22/21 20:45 INR 1.0 (0.9-1.1) 09/22/21 20:45 APTT 31.0 Seconds (21.0-31.0) 09/22/21 20:45 PTT Ratio 1.1 09/22/21 20:45 VBG pH 7.34 (7.36-7.41) L 09/22/21 20:45 VBG pCO2 69 mmHg (38-50) H 09/22/21 20:45 VBG pO2 24 mmHg 09/22/21 20:45 VBG HCO3 37 mmol/L 09/22/21 20:45 VBG O2 Saturation < 60.0 % 09/22/21 20:45 VBG Base Excess 8.9 mEq/L 09/22/21 20:45 Barometric Pressure 733.0 mm/Hg 09/22/21 20:45 Sodium 115 mmol/L (136-145) L* 09/22/21 20:45 Potassium 4.0 mmol/L (3.5-5.1) 09/22/21 20:45 Chloride 74 mmol/L (98-107) L 09/22/21 20:45 Carbon Dioxide 35 mmol/L (21-32) H 09/22/21 20:45 Anion Gap 6 (3-11) 09/22/21 20:45 BUN 16 mg/dl (6-23) 09/22/21 20:45 Creatinine 0.95 mg/dl (0.6-1.4) 09/22/21 20:45 Est Cr Clr Drug Dosing 59.3 ml/min 09/22/21 20:45 Est GFR ( Amer) 96.3 ml/min 09/22/21 20:45 Est GFR (Non-Af Amer) 83.1 ml/min 09/22/21 20:45 BUN/Creatinine Ratio 16.8 (10-20) 09/22/21 20:45 Glucose 83 mg/dl (70-99(Fasting)) 09/22/21 20:45 Calcium 8.8 mg/dl (8.5-10.1) 09/22/21 20:45 Magnesium 1.6 mg/dl (1.7-2.4) L 09/22/21 20:45 Total Bilirubin 1.0 mg/dl (0.2-1.0) 09/22/21 20:45 AST 36 U/L (13-39) 09/22/21 20:45 ALT 20 U/L (7-52) 09/22/21 20:45 Alkaline Phosphatase 97 U/L (34-104) 09/22/21 20:45 Troponin I High Sens 21.6 pg/ml (0-20) H 09/22/21 20:45 B-Natriuretic Peptide 1975 pg/ml (0-100) H 09/22/21 20:45 Total Protein 7.2 gm/dl (6.0-8.3) 09/22/21 20:45 Albumin 4.0 gm/dl (3.4-5.0) 09/22/21 20:45 Globulin 3.2 gm/dl (2.5-4.0) 09/22/21 20:45 Albumin/Globulin Ratio 1.3 (0.9-2) 09/22/21 20:45 SARS-CoV-2, RNA, NAAT NEGATIVE (NEGATIVE) 09/22/21 21:54 Diagnostic Findings CTA Chest - Per STAT-rad: Trace bilateral pleural effusions. LLL granuloma. RUL posterior irregular nodule abutting the pleural surface measuring 7mm. Faint ground glass like opacity in the RML subcentimeter nodules in the periphery of the lingula as well. No evidence of pneumothorax. Small and prominent nodes in the mediastinum and hunter. The heart is large. Atherosclerosis including coronary artery calcifications. Pacer lead in the right ventricle. No PE. Upper abdomen intact. No acute findings in the bones. Comparison October 12, 2020. Impression: No PE. Trace pleural effusions. Possible developing small infiltrate in the right middle lobe. New bilateral lung nodules which require follow-up to exclude neoplasm. ECG Additional Comments: EKG with NSR at 76, normal axis, RZ=826, TRR=589 with incomplete LBBB pattern present, PSe=641, nonspecific ST changes present in anterior leads Code Status & VTE Plan VTE Prophylaxis Plan VTE Prophylaxis will be ordered: Yes PG Care Time/CCT Total # of Minutes Spent Total Time Spent with Patient: Total time spent is greater than 50% in coordination of care (as documented) at patient's floor/unit and/or counseling patient: Coding Level of Care Code 15938 Initial Inpt Care Lvl 3 Diagnoses Hypoxia R09.02 Ischemic cardiomyopathy with implantable cardioverter-defibrillator (ICD) I25.5; Z95.810 Lung mass R91.8 Laryngeal squamous cell carcinoma C32.9 Anemia D64.9 CAD (coronary artery disease) I25.10 COPD (chronic obstructive pulmonary disease) J44.9 Hyponatremia E87.1
[2021-09-23] MEDS ORDERED: ALBUT/IPRATROP 3MG/0.5MG NEB 3 ML VIAL ONE (00:18)
[2021-09-23] MEDS ORDERED: ALBUT/IPRATROP 3MG/0.5MG NEB 3 ML VIAL NEB STA (00:19)
[2021-09-23] MEDS ORDERED: SODIUM CHLORIDE 3 % 50 ML IV ONE ×2 (00:26→02:52)
[2021-09-23 00:38] LABS: Base Excess VBG 5.6 mEq/L; HCO3 VBG 34 mmol/L; Oxygen Saturation VBG 90.6 %; PCO2 VBG 71 mmHg (38-50); PO2 VBG 64 mmHg
[2021-09-23] MEDS ORDERED: ONDANSETRON INJ 2 MG/ML 2 ML VIAL IV PRN (01:07)
[2021-09-23] MEDS ORDERED: ALBUTEROL 0.5% NEB SOLN 2.5 MG/0.5 ML VIAL NEB PRN (01:07)
[2021-09-23] MEDS: MAGNESIUM SULFATE / D5W 1 GM/100 ML BAG IV SCH ×3 (01:48→05:40)
[2021-09-23] MEDS: ENOXAPARIN INJ 40 MG/0.4 ML SYR SQ SCH ×2 (02:15→20:02)
[2021-09-23 02:48] LABS: BUN Creatinine Ratio 17.8 (10-20); Calcium 8.6 mg/dl (8.5-10.1); Creatinine Clr Calc Pharmacy 75.3 ml/min; Est GFR (African American) 102.8 ml/min; Est GFR (Non-African American) 88.7 ml/min; Phosphorus 3.5 mg/dl (2.5-4.9); Potassium 4.3 mmol/L (3.5-5.1); Troponin I High Sensitivity 16.9 pg/ml (0-20)
[2021-09-23] MEDS: ALBUT/IPRATROP 3MG/0.5MG NEB 3 ML VIAL NEB SCH ×3 (03:19→11:22)
--- NOTE | 2021-09-23 07:51 | CT Scan Report ---
CT ANGIOGRAPHY OF THE CHEST, PULMONARY EMBOLUS PROTOCOL CLINICAL HISTORY: Shortness of breath. History of laryngeal squamous cell carcinoma. Evaluate for pul monary embolus. COMPARISON STUDY: Chest CT October 12, 2020. Chest radiograph September 22, 2021. TECHNIQUE: Following IV administration of 118 mL of Optiray, helical axial images of the chest were o btained utilizing the pulmonary embolus protocol. Maximal intensity projections and sagittal and cor onal reformats were viewed on an independent 3D workstation. IV contrast was administered without co mplication. Automated exposure control was utilized for the study. A dose lowering technique was ut ilized adhering to the principles of ALARA. CT DOSE: 299.73 mGy.cm FINDINGS: There are median sternotomy wires and a left subclavian pacer/AICD. No pulmonary emboli ar e identified. The lower lobe pulmonary arteries are suboptimally assessed due to suboptimal opacifica tion with mixing artifact. Right middle lobe pulmonary arteries are suboptimally assessed due to resp iratory motion. Moderate cardiomegaly is noted. There is no pericardial effusion. There are trace may ateral pleural effusions. No pneumothorax is present. Moderate emphysema is present. Scattered tree-i n-bud nodules are noted throughout the lungs. A few groundglass opacities are also present. These fin dings are likely infectious. These include a 7 mm irregular right lower lobe nodule on image 180 of 3 46 and an 8 mm subpleural right upper lobe nodule on image 290. These are new since prior exam. Diffu se wall thickening is noted with scattered secretions within the airways. No suspicious lesions withi n the bony thorax. Mildly enlarged mediastinal and hilar lymph nodes are unchanged. IMPRESSION: 1. No pulmonary emboli identified although segmental and subsegmental pulmonary arteries suboptimally assessed, as above. 2. Scattered airspace opacities within lungs which favor an infectious process. A few irregular nodul ar densities are also likely infectious however a follow-up chest CT in 6 months to ensure resolution is recommended. 3. Emphysema. 4. Trace bilateral pleural effusions. 5. Cardiomegaly. ACT 112: Negative or not required by law. Electronically signed by: Gregg Gómez M.D. 09/23/2021 7:49 AM
--- NOTE | 2021-09-23 07:58 | XRay Report ---
XR chest 1V portable HISTORY: Shortness of breath. COMPARISON: Chest 06/13/2019. FINDINGS: No pneumothorax. Trace pleural effusions. The cardiac silhouette is mildly enlarged there a re poststernotomy changes and a left-sided pacemaker/fibrillator. Emphysema is again noted. No eviden ce for pulmonary edema. Mild interstitial thickening which could be chronic. IMPRESSION: 1. Cardiomegaly and trace bilateral pleural effusions. 2. Mild interstitial thickening which could be chronic. ACT 112: Negative or not required by law. Electronically signed by: Yogi Cole M.D. 09/23/2021 7:57 AM
[2021-09-23 08:24] LABS: Hematocrit (blood only) 35.6 % (42-52); Hemoglobin 12.2 g/dL (14.0-18.0); Immature Granulocytes # (auto) 0.01 K/uL (0.00-0.02); Immature Granulocytes % (auto) 0.2 %; Lymphocytes # (auto) 0.13 K/uL (1.2-3.4); Lymphocytes % (auto) 3.1 %; Mean Corpuscular Hemoglobin 32.7 pg (25-34); Mean Corpuscular Hgb Conc 34.3 g/dL (32-36); Mean Corpuscular Volume 95.4 fL (80-100); Mean Platelet Volume 9.4 fL (7.4-10.4); Monocytes # (auto) 0.05 K/uL (0.11-0.59); Monocytes % (auto) 1.2 %; Neutrophils # (auto) 4.06 K/uL (1.4-6.5); Neutrophils % (auto) 95.5 %; Platelet Count 114 K/uL (130-400); RDW Coefficient of Variation 13.1 % (11.5-14.5); RDW Standard Deviation 45.6 fL (36.4-46.3); Red Blood Count 3.73 M/uL (4.7-6.1); White Blood Count 4.25 K/uL (4.8-10.8)
[2021-09-23] MEDS: ASPIRIN 81 MG ECTAB PO SCH ×2 (08:45→20:01)
[2021-09-23] MEDS: METOPROLOL SUCC 50MG EXT REL TAB PO SCH (08:45)
[2021-09-23] MEDS: GABAPENTIN 600 MG TAB PO SCH ×4 (08:45→20:01)
[2021-09-23 08:47] LABS: BUN Creatinine Ratio 15.3 (10-20); Calcium 8.7 mg/dl (8.5-10.1); Creatinine Clr Calc Pharmacy 66.3 ml/min; Est GFR (African American) 92.7 ml/min; Magnesium 2.4 mg/dl (1.7-2.4); Potassium 4.2 mmol/L (3.5-5.1)
[2021-09-23] MEDS ORDERED: FUROSEMIDE 40 MG/4 ML VIAL IV SCH (10:00)
[2021-09-23] MEDS: FUROSEMIDE 40 MG/4 ML VIAL IV SCH ×2 (10:21→20:01)
--- NOTE | 2021-09-23 10:37 | Nephrology Consultation ---
Date of Consultation September 23, 2021 Assessment & Plan (1) Hyponatremia: Severe, chronic. Appears minimally symptomatic. Acceptable improvement seen overnight with hypertonic saline and furosemide. Clinical presentation consistent with some component of right heart failure. Underlying lung disease certainly contributing. Uosm inappropriately elevated at 230. Continue salt replacement to encourage improvement at a goal rate of ~0.5 mEq/L/hr. Avoid correcting >8-10 mEq/L/24 hours. Remains on furosemide 40 mg BID. Free water restrict to 1 L daily. Records from [place] have been requested. Monitor serum sodium Q4 hours. Document strict I/O's. Check serum PO4. Repeat urine studies in the AM. History of Present Illness Reason for Consultation: Hyponatremia Requesting Physician: Brian Mackenzie MD Attending Physician: Brian Mackenzie MD History of Present Illness Mr. Rafael Pearl was seen in consultation this AM for severe hyponatremia. Serum sodium on admission yesterday at 22:30 was 115 mmol/L. Serum sodium this AM, 119 mmol/L. Furosemide 40 mg IV provided overnight in addition to 3% saline bolus 50 ml x 2. Rafael feels reasonably well this AM. He reports persistent chest congestion and a painful cough with difficulty clearing secretions. Sputum tends to be white and thick. Symptoms have been present for a couple of weeks. He was recently started on outpatient treatment for pneumonia. Unfortunately, no improvement. He denies hemoptysis. No fevers or chills. Appetite has been good. He has noticed edema in both legs over the past couple of weeks as well. Edema tends to improve when he keeps his feet elevated. He states that he was evaluat ed at [facility] last week for the symptoms. Sodium levels were found to be low at that time and a 1.5 L fluid restriction was encouraged. He has not adhered to the fluid restriction. Rafael reports drinking 1 bottle of water and a couple of cups of coffee each day as well as a few mixed drinks. He regularly meets friends at the [facility] [place] for meals and a few drinks. He notes that he has been sleeping more due to his breathing difficulties. Activity tolerance is limited due to some degree of dyspnea at baseline. He has been loosing weight slowly over the past year and reports loss of muscle mass. He is not very active at baseline and describes some chronic issues with balance. He has not fallen. In the ER, he was hypoxic on arrival to 86% on room air. This improved with 2L NC to 100%. Solumedrol and albuterol were provided for respiratory symptoms prior to admission. Medical history is notable for an ischemic cardiomyopathy with chronic systolic CHF, AICD in place, COPD, history of laryngeal SCC, AAA, smoker, and depression. Serum sodium was 124 in September 2020 and 129 mmol/L in May 2021. Urine osmolality 223 following furosemide. Allergies Allergy/AdvReac Type Severity Reaction Status Date / Time No Known Allergies Allergy Verified 09/22/21 21:08 Home Medications Medication Instructions Recorded Confirmed Type aspirin 81 mg tablet,delayed 81 mg PO BID 06/04/19 09/22/21 History release (Adult Aspirin Regimen) metoprolol succinate 50 mg 50 mg PO DAILY #30 tab 06/09/21 09/22/21 Rx tablet,extended release 24 hr furosemide 20 mg tablet 20 mg PO DAILY 09/22/21 09/22/21 History gabapentin 600 mg tablet 600 mg PO QID 09/22/21 09/22/21 History levofloxacin 500 mg tablet 500 mg PO DAILY 09/22/21 09/22/21 History Patient History Medical History Anemia Chronic- stable CAD (coronary artery disease) Stents placed > 10 years ago; 3 vessel CABG 2017 COPD (chronic obstructive pulmonary disease) Ischemic cardiomyopathy with implantable cardioverter-defibrillator (ICD) 05/2019 ECHO shows EF of 20-25% MEDTRON[employer] DEFIB IMPLANTED AFTER CABG X 3 in 2017 Lesion of vocal fold PATIENT STATES DR DHILLON ATTEMPTED TO PASS SCOPE AND UNABLE. HE NEEDS THIS PROCEDURE (DIRECT MICROLAYNGOSCOPY WITH BIOPSIES)- CONCERNS FOR LARYNGEAL CANCER 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- CARDIAC ARREST WHILE DRIVING - HE WAS DEFIBRILLATED AT THE SCENE AND TAKEN TO [facility] AND THEN [facility]IGHTED TO [facility] Peripheral vascular disease HAS STENT IN RIGHT LEG Surgical History History of cardiac cath HAD CATH AROUND 2006 WITH STENT; THEN IN 11/2016 HAD CATH WITH CABG X3 FOLLOW WITH [facility] History of coronary artery bypass graft 2017- CARABALLO to LAD, SVG to OM, SVG to PDA History of surgery on extremity RIGHT LEG AND HAD STENT PLACED 2016 History of throat surgery direct microlaryngoscopy with biopsies-06/25/2019-Dr. Dhillon Family History Mother Diabetes Brother Hypertension Myocardial infarction Denies family history of Ovarian cancer Prostate cancer Breast cancer Colorectal cancer Social History Smoking Status: Current every day smoker Tobacco Type: Cigarettes Cigarettes Per Day: 3-4; Second Hand Exposure: No; Hx Alcohol Use: Yes Alcohol type: beer and hard liquor Alcohol Intake Frequency Comment: 2-3 drinks a day Hx Substance Use: No Preferred Language: Vietnamese Communication Ability: Effective Visual Impairment: No Limitations Powder Line Repairer Required: No Beliefs That Will Affect Care: None marital status: Single Current Living Situation: Alone current occupational status: retired Feels Safe at Home: Yes Childhood Exposure to Second-Hand Smoke: Yes caffeine: Yes Dental Care, Regularly: No Physical Activity Frequency: Daily Seatbelt Use: never Sunscreen Use: No Assistive Devices: None Review of Systems Review of Systems: All systems reviewed & are unremarkable except as noted in HPI & below Genitourinary: + urinary frequency; no dysuria, no difficulty urinating or no urinary hesitancy Musculoskeletal: + joint pain and + stiffness Physical Exam Constitutional: well developed, + ill appearing and + frail appearing; no acute distress Eyes: + anicteric sclerae; no corneal abnormality ENMT: Mouth: + dry oral mucous membranes; no oral mucosal abnormality Neck: normal visual inspection and trachea midline Respiratory: + cough and + tachypneic; no respiratory distress and no labored breathing Auscultation: + diminished lung sounds and + rales Cardiovascular: Rate/Rhythm: regular rate Heart Sounds: normal S1 and normal S2 Extremities: + pedal edema Musculoskeletal: Extremities: no cyanosis and no clubbing Skin: + turgor decreased; no jaundice Neurologic: Motor/Sensory: no tremor and no asterixis Psychiatric: Orientation: alert and oriented x 3 Results & Data ([facility]) Vital Signs (Past 12 Hours) Vital Signs Temp Pulse Pulse Resp BP Pulse Ox 09/23/21 10:21 36.9 C 76 18 127/66 97 09/23/21 08:13 36.8 C 80 20 160/72 H 98 09/23/21 07:52 91 H 09/23/21 03:20 82 18 97 09/23/21 03:15 36.8 C 84 22 148/76 H 91 09/23/21 02:04 80 09/23/21 01:08 19 91 09/23/21 00:53 36.9 C 79 20 151/97 H 90 Laboratory Results Laboratory Results - last 24 hr 09/22/21 09/22/21 09/22/21 20:45 20:45 20:45 WBC 5.71 RBC 3.89 L Hgb 12.9 L Hct 37.1 L MCV 95.4 MCH 33.2 MCHC 34.8 RDW Std Deviation 44.9 RDW Coeff of Erik 13.0 Plt Count 118 L MPV 9.2 Immature Gran % (Auto) 0.4 Neut % (Auto) 79.3 Lymph % (Auto) 14.7 Fisher % (Auto) 4.7 Eos % (Auto) 0.7 Baso % (Auto) 0.2 Neut # (Auto) 4.53 Lymph # (Auto) 0.84 L Fisher # (Auto) 0.27 Eos # (Auto) 0.04 Baso # (Auto) 0.01 Immature Gran # (Auto) 0.02 PT 10.9 INR 1.0 APTT 31.0 PTT Ratio 1.1 VBG pH VBG pCO2 VBG pO2 VBG HCO3 VBG O2 Saturation VBG Base Excess Barometric Pressure Sodium 115 L* Potassium 4.0 Chloride 74 L Carbon Dioxide 35 H Anion Gap 6 BUN 16 Creatinine 0.95 Est Cr Clr Drug Dosing 59.3 Est GFR ( Amer) 96.3 Est GFR (Non-Af Amer) 83.1 BUN/Creatinine Ratio 16.8 Glucose 83 Osmolality Calcium 8.8 Phosphorus Magnesium 1.6 L Total Bilirubin 1.0 AST 36 ALT 20 Alkaline Phosphatase 97 Troponin I High Sens 21.6 H B-Natriuretic Peptide Total Protein 7.2 Albumin 4.0 Globulin 3.2 Albumin/Globulin Ratio 1.3 Procalcitonin Urine Osmolality Ur Random Sodium SARS-CoV-2, RNA, NAAT 09/22/21 09/22/21 09/22/21 20:45 20:45 21:54 WBC RBC Hgb Hct MCV MCH MCHC RDW Std Deviation RDW Coeff of Erik Plt Count MPV Immature Gran % (Auto) Neut % (Auto) Lymph % (Auto) Fisher % (Auto) Eos % (Auto) Baso % (Auto) Neut # (Auto) Lymph # (Auto) Fisher # (Auto) Eos # (Auto) Baso # (Auto) Immature Gran # (Auto) PT INR APTT PTT Ratio VBG pH 7.34 L VBG pCO2 69 H VBG pO2 24 VBG HCO3 37 VBG O2 Saturation < 60.0 VBG Base Excess 8.9 Barometric Pressure 733.0 Sodium Potassium Chloride Carbon Dioxide Anion Gap BUN Creatinine Est Cr Clr Drug Dosing Est GFR ( Amer) Est GFR (Non-Af Amer) BUN/Creatinine Ratio Glucose Osmolality Calcium Phosphorus Magnesium Total Bilirubin AST ALT Alkaline Phosphatase Troponin I High Sens B-Natriuretic Peptide 1975 H Total Protein Albumin Globulin Albumin/Globulin Ratio Procalcitonin Urine Osmolality Ur Random Sodium SARS-CoV-2, RNA, NAAT NEGATIVE 09/23/21 09/23/21 09/23/21 00:26 01:30 01:30 WBC RBC Hgb Hct MCV MCH MCHC RDW Std Deviation RDW Coeff of Erik Plt Count MPV Immature Gran % (Auto) Neut % (Auto) Lymph % (Auto) Fisher % (Auto) Eos % (Auto) Baso % (Auto) Neut # (Auto) Lymph # (Auto) Fisher # (Auto) Eos # (Auto) Baso # (Auto) Immature Gran # (Auto) PT INR APTT PTT Ratio VBG pH 7.30 L VBG pCO2 71 H VBG pO2 64 VBG HCO3 34 VBG O2 Saturation 90.6 VBG Base Excess 5.6 Barometric Pressure Sodium Potassium Chloride Carbon Dioxide Anion Gap BUN Creatinine Est Cr Clr Drug Dosing Est GFR ( Amer) Est GFR (Non-Af Amer) BUN/Creatinine Ratio Glucose Osmolality Calcium Phosphorus Magnesium Total Bilirubin AST ALT Alkaline Phosphatase Troponin I High Sens B-Natriuretic Peptide Total Protein Albumin Globulin Albumin/Globulin Ratio Procalcitonin Urine Osmolality 223 L Ur Random Sodium 91 SARS-CoV-2, RNA, NAAT 09/23/21 09/23/21 09/23/21 01:41 01:41 01:41 WBC RBC Hgb Hct MCV MCH MCHC RDW Std Deviation RDW Coeff of Erik Plt Count MPV Immature Gran % (Auto) Neut % (Auto) Lymph % (Auto) Fisher % (Auto) Eos % (Auto) Baso % (Auto) Neut # (Auto) Lymph # (Auto) Fisher # (Auto) Eos # (Auto) Baso # (Auto) Immature Gran # (Auto) PT INR APTT PTT Ratio VBG pH VBG pCO2 VBG pO2 VBG HCO3 VBG O2 Saturation VBG Base Excess Barometric Pressure Sodium 114 L* Potassium 4.3 Chloride 76 L Carbon Dioxide 35 H Anion Gap 3 BUN 16 Creatinine 0.90 Est Cr Clr Drug Dosing 75.3 Est GFR ( Amer) 102.8 Est GFR (Non-Af Amer) 88.7 BUN/Creatinine Ratio 17.8 Glucose 99 Osmolality 251 L Calcium 8.6 Phosphorus 3.5 Magnesium Total Bilirubin AST ALT Alkaline Phosphatase Troponin I High Sens 16.9 D B-Natriuretic Peptide Total Protein Albumin Globulin Albumin/Globulin Ratio Procalcitonin < 0.05 Urine Osmolality Ur Random Sodium SARS-CoV-2, RNA, NAAT 09/23/21 09/23/21 09/23/21 01:41 07:59 07:59 WBC 4.25 L RBC 3.73 L Hgb 12.2 L Hct 35.6 L MCV 95.4 MCH 32.7 MCHC 34.3 RDW Std Deviation 45.6 RDW Coeff of Erik 13.1 Plt Count 114 L MPV 9.4 Immature Gran % (Auto) 0.2 Neut % (Auto) 95.5 Lymph % (Auto) 3.1 Fisher % (Auto) 1.2 Eos % (Auto) 0.0 Baso % (Auto) 0.0 Neut # (Auto) 4.06 Lymph # (Auto) 0.13 L Fisher # (Auto) 0.05 L Eos # (Auto) 0.00 Baso # (Auto) 0.00 Immature Gran # (Auto) 0.01 PT INR APTT PTT Ratio VBG pH VBG pCO2 VBG pO2 VBG HCO3 VBG O2 Saturation VBG Base Excess Barometric Pressure Sodium 119 L* Potassium 4.2 Chloride 77 L Carbon Dioxide 38 H Anion Gap 4 BUN 15 Creatinine 0.98 Est Cr Clr Drug Dosing 66.3 Est GFR ( Amer) 92.7 Est GFR (Non-Af Amer) 80.0 BUN/Creatinine Ratio 15.3 Glucose 161 H Osmolality Calcium 8.7 Phosphorus Magnesium 2.4 Total Bilirubin AST ALT Alkaline Phosphatase Troponin I High Sens Cancelled B-Natriuretic Peptide Total Protein Albumin Globulin Albumin/Globulin Ratio Procalcitonin Urine Osmolality Ur Random Sodium SARS-CoV-2, RNA, NAAT PG Care Time/CCT Total # of Minutes Spent Total Time Spent with Patient: Total time spent is greater than 50% in coordination of care (as documented) at patient's floor/unit and/or counseling patient: 40 minutes Coding Level of Care Code 65158 Inpt Consult Level 4 Diagnoses Hyponatremia E87.1
--- NOTE | 2021-09-23 13:16 | XCELERA ---
[id number]
[2021-09-23 13:48] LABS: BUN Creatinine Ratio 14.4 (10-20); Calcium 8.7 mg/dl (8.5-10.1); Creatinine Clr Calc Pharmacy 62.5 ml/min; Est GFR (African American) 86.3 ml/min; Est GFR (Non-African American) 74.5 ml/min; Potassium 3.8 mmol/L (3.5-5.1)
--- NOTE | 2021-09-23 14:14 | Electrocardiogram Report ---
Test Reason : Blood Pressure : / mmHG Vent. Rate : 076 BPM Atrial Rate : 076 BPM P-R Int : 170 ms QRS Dur : 120 ms QT Int : 400 ms P-R-T Axes : 067 089 153 degrees QTc Int : 450 ms Normal sinus rhythm Borderline Non-specific intra-ventricular conduction delay Abnormal ECG When compared with ECG of 11-OCT-2020 23:20, Nonspecific T wave abnormality has replaced inverted T waves in Inferior leads T wave inversion now evident in Anterolateral leads Confirmed by Bunny Murray ([id number]) on 09/23/2021 2:14:37 PM Referred By: REFERRED SELF Confirmed By:Bunny Murray
[2021-09-23] MEDS: DOXYCYCLINE HYCLATE 100 MG CAP PO SCH ×2 (15:40→20:01)
[2021-09-23] MEDS: ACETAMINOPHEN 325 MG TAB PO PRN (15:42)
[2021-09-23] MEDS ORDERED: DICLOFENAC SOD 1% GEL 100 GM TUBE EXT PRN (16:18)
--- NOTE | 2021-09-23 17:47 | Hospitalist Progress Note ---
Date of Service September 23, 2021 Assessment & Plan (1) Hyponatremia: Plan: 66yo male with history of CAD s/p CABG, VT/VF s/p AICD placement, ICM with reduced EF of 20-25% presenting with progressive LE edema x 2 weeks, SOB x 1 day. Found to be hyponatremic with Sw=664. Patient with chronic hyponatremia, however, Na 124-129 over the last two readings. Possible mild symptoms in form of worsening balance, somnolence. No seizure. Suspect hypervolemic hyponatremia secondary to acute decompensated CHF. -His urine is very diluted doubt this is SIADH -Responded well to Lasix -Sodium is trending up currently is 121 Resume Lasix 40 mg twice daily (2) Hypoxia: Plan: Patient with hypoxia on arrival, improved with 2L O2 by NC. Ddx to include pulmonary edema, CHF. Wheezing present on exam. Patient reports being diagnosed recently with PNA and was prescribed Levaquin which he has not yet started. He denies fever/chills/rigors, no leukocytosis. Some groundglass findings at RML ?developing infectious process -Procalcitonin is low Started on doxycycline Add Rocephin 1 g daily -DuoNeb as needed (3) Ischemic cardiomyopathy with implantable cardioverter-defibrillator (ICD): Plan: Patient with CAD s/p CABG, VT/VF arrest s/p AICD placement. No device discharge reported. Patient has severely reduced EF of 20-25% per last echo in 2019. Medications presently ASA and Metoprolol. -Continue ASA -Continue Metoprolol -Patient may benefit from management with TERA-inhibitor or Entresto, possible SGLT2 -May benefit from referral to CHF clinic (4) Lung mass: Plan: Noted irregular lung mass on imaging. Patient with longstanding history of smoking - continues to smoke -Consider Pulmonary referral for additional workup (5) Laryngeal squamous cell carcinoma: Plan: s/p chemo and XRT. Cancer free, no active ongoing treatments at this time -Outpatient followup as instructed (6) Anemia: Plan: Stable. No active bleeding -Continue to monitor (7) CAD (coronary artery disease): Plan: Patient without chest pain. Mild elevation of troponin. -Telemetry monitoring -Repeat troponin with next blood draw -Continue ASA and Metoprolol. Consider initiation of additional therapies such as TERA/ARB or Entresto therapy -Check 2D echo (8) COPD (chronic obstructive pulmonary disease): Plan: Diffuse wheezing -DuoNeb q 4 hours -Albuterol q2 hours PRN Plan: F/E/N - Lasix 40mg IV x 1, re-dose as needed, Mg repletion, repeat chemistry q 4 hours, AHA/Fluid restriction Ppx - Lovenox 40 Code - Full per discussion with patient Dispo - Admit to PCU Admission and Anticipated Discharge Date Admission Date: September 22, 2021 Subjective Complaining of having cough Results & Data Results & Data ([facility]) Vital Signs (Past 12 Hours) Vital Signs Temp Pulse Pulse Resp BP Pulse Ox 09/23/21 15:49 36.4 C L 77 18 99/40 L 94 09/23/21 14:58 74 09/23/21 10:21 36.9 C 76 18 127/66 97 09/23/21 10:20 88 L 09/23/21 08:13 36.8 C 80 20 160/72 H 98 09/23/21 07:52 91 H PG Care Time/CCT Total # of Minutes Spent Total Time Spent with Patient: Total time spent is greater than 50% in coordination of care (as documented) at patient's floor/unit and/or counseling patient: Coding Level of Care Code 22631 Subseq Hosp Care Lvl 3 Diagnoses Hyponatremia E87.1 Hypoxia R09.02 Ischemic cardiomyopathy with implantable cardioverter-defibrillator (ICD) I25.5; Z95.810 Lung mass R91.8 Laryngeal squamous cell carcinoma C32.9 Anemia D64.9 CAD (coronary artery disease) I25.10 COPD (chronic obstructive pulmonary disease) J44.9
[2021-09-23 18:25] LABS: BUN Creatinine Ratio 15.7 (10-20); Calcium 8.5 mg/dl (8.5-10.1); Creatinine Clr Calc Pharmacy 60.1 ml/min; Est GFR (African American) 82.5 ml/min; Est GFR (Non-African American) 71.1 ml/min; Potassium 3.8 mmol/L (3.5-5.1)
[2021-09-24 08:06] LABS: BUN Creatinine Ratio 15.3 (10-20); Calcium 8.5 mg/dl (8.5-10.1); Est GFR (African American) 79.8 ml/min; Est GFR (Non-African American) 68.8 ml/min; Potassium 3.5 mmol/L (3.5-5.1)
[2021-09-24] MEDS: METOPROLOL SUCC 50MG EXT REL TAB PO SCH (08:46)
[2021-09-24] MEDS: GABAPENTIN 600 MG TAB PO SCH ×4 (08:46→20:34)
[2021-09-24] MEDS: DOXYCYCLINE HYCLATE 100 MG CAP PO SCH ×2 (08:46→20:33)
[2021-09-24] MEDS: ASPIRIN 81 MG ECTAB PO SCH ×2 (08:46→20:33)
[2021-09-24] MEDS: FUROSEMIDE 40 MG/4 ML VIAL IV SCH (08:47)
[2021-09-24] MEDS ORDERED: cefTRIAXone SODIUM 1,000 MG in DEXTROSE 5% 50 ML IV SCH (09:15)
--- NOTE | 2021-09-24 09:26 | Nephrology Progress Note ---
Date of Service September 24, 2021 Assessment & Plan (1) Hyponatremia: Plan: Severe, chronic. No concerning symptoms at this time. Fluid retention noted on admission. Volume status markedly improved. Furosemide reduced from 40 mg IV BID to 20 mg PO BID this AM. Repeat Uosm requested. Serum sodium improving appropriately. Underlying lung disease certainly contributing. Uosm inappropriately elevated at 230. Cannot exclude underlying SIADH. Continue 1 L daily free water restriction. Did not require any additional NaCl yesterday. Vaptan therapy does not seem necessary at this time given improvement with diuretics and free water restriction. Records from [place] have been requested. Repeat metabolic profile this afternoon. TSH acceptable in May. Repeat pending. Close outpatient follow up will be required at discharge. Admission and Anticipated Discharge Date Admission Date: September 22, 2021 Subjective No acute events overnight. Cough improved. Breathing comfortably. Appetite is good. Edema in legs resolved. Overall, Rafael feels well. He said that he hopes to be discharged home today. I/O negative >2 L with furosemide BID. Review of Systems Review of Systems: All systems reviewed & are unremarkable except as noted in HPI & below Musculoskeletal: + stiffness Physical Exam Constitutional: well developed and + frail appearing; no acute distress Eyes: + anicteric sclerae; no corneal abnormality ENMT: Mouth: no oral mucosal abnormality and oral mucous membranes not dry Neck: normal visual inspection and trachea midline Respiratory: normal respiratory effort Auscultation: lungs clear to auscultation bilaterally Cardiovascular: Rate/Rhythm: regular rate Heart Sounds: normal S1 and nor mal S2 Extremities: no edema Musculoskeletal: Extremities: no cyanosis and no clubbing Skin: + turgor decreased; no jaundice Neurologic: Motor/Sensory: no tremor and no asterixis Psychiatric: Orientation: alert and oriented x 3 Results & Data ([facility]) Vital Signs (Past 12 Hours) Vital Signs Temp Pulse Pulse Resp BP BP Pulse Ox 09/24/21 07:58 37.0 C 79 16 110/74 97 09/24/21 04:00 36.6 C 73 16 106/61 99 09/23/21 23:34 73 09/23/21 23:04 36.7 C 72 19 137/82 98 Laboratory Results Laboratory Results - last 24 hr 09/23/21 09/23/21 09/24/21 12:55 17:13 06:24 Sodium 121 L 122 L 126 L Potassium 3.8 3.8 3.5 Chloride 77 L 77 L 80 L Carbon Dioxide 39 H 39 H 42 H* Anion Gap 5 6 4 BUN 15 17 17 Creatinine 1.04 1.08 1.11 Est Cr Clr Drug Dosing 62.5 60.1 59.0 Est GFR ( Amer) 86.3 82.5 79.8 Est GFR (Non-Af Amer) 74.5 71.1 68.8 BUN/Creatinine Ratio 14.4 15.7 15.3 Glucose 237 H 139 H 96 Calcium 8.7 8.5 8.5 PG Care Time/CCT Total # of Minutes Spent Total Time Spent with Patient: Total time spent is greater than 50% in coordination of care (as documented) at patient's floor/unit and/or counseling patient: Coding Level of Care Code 34140 Subseq Hosp Care Lvl 3 Diagnoses Hyponatremia E87.1
[2021-09-24] MEDS: predniSONE 20 MG TAB PO SCH (10:28)
--- NOTE | 2021-09-24 13:55 | Cardiology Consultation ---
Date of Consultation September 24, 2021 Assessment & Plan (1) Hyponatremia: (2) Heart failure, systolic, with acute decompensation: (3) CAD (coronary artery disease): (4) Ischemic cardiomyopathy: (5) Nonsustained ventricular tachycardia: Presentation with hypervolemic hyponatremia secondary to acute decompensated systolic heart failure and chronic alcohol use. Severe ischemic cardiomyopathy with left ventricular ejection fraction 20 to 25%, nonspecific intraventricular conduction delay wiht QRS duration 120 ms, remote inferior wall myocardial infarction, NS-VT and sustained ventricular tachycardia/ventricular fibrillation including prior cardiac arrest on November 22, 2016 leading to discovery of multivessel coronary artery disease status post November 28, 2016 CABG, December 05, 2016 single chamber Medtronic ICD implantation. Patient with chronic tobacco and alcohol use and abuse, longstanding documented history of medication and defibrillator follow-up noncompliance. Patient notes, unequivocally, that he will not agree to initiation and utilization of all appropriate and recommended guideline directed heart failure medications. Fluid restrict as per Nephrology Agree with low dose oral furosemide. Supplemental potassium orally ? Utilization of spironolactone Continue metoprolol and Aspirin Patient declines ACEI/ARB/Entresto/SGLT2 at this time. Avoid QTC prolonging medications such as Levaquin Recommend reduction to discontinuation of alcohol Recommend tobacco cessation Patient lives in [place] and prefers to follow with Dr. Stinson at [facility] in [place], [place]. Review of the outpatient medical record reveals that the patient was last seen by Dr. Stinson on July 17, 2019 at [facility]. Supervising Physician Co-Signing Physician Notes Patient seen examined at the bedside. Shortness of breath improved since admission. Denies chest discomfort or palpitations. PE: VSS. General: NAD, Chronically ill. Heart: Regular rhythm, soft 1/6 systolic murmur heard at the left sternal border. Lungs: Diminished breath sounds bilaterally Extremities: No edema. A/P: Agree with above PAC history, physical exam, assessment plan. Continue fluid restriction and low-dose furosemide. Appreciate Nephrology input. Recommend discontinuation/reduction of alcohol intake and tobacco cessation. Cardiology will continue to follow during hospitalization. History of Present Illness Reason for Consultation: CHF Requesting Physician: Jay Attending Physician: Avril History of Present Illness Complex 66-year-old male who presented to [facility] on September 22, 2021 with complaints of acute on chronic dyspnea and acute on chronic bilateral lower extremity peripheral edema. Prior to arrival, the patient was felt to mcgarry ve pneumonia and was prescribed Levaquin however he never initiated said treatment. Laboratory work on presentation revealed marked hyponatremia with a sodium of 115. Hypervolemic hyponatremia suspected, secondary to acute decompensated systolic congestive heart failure. Patient admitted, diuresed with 40 mg IV furosemide twice per day with improvement. Per documentation, volume status is markedly improved. IV furosemide this morning with oral furosemide, 20 mg twice per day prescribed by nephrology. Sodium this morning was 126. Bicarb 42. BUN and creatinine were 17 and 1.11 respectively. Potassium is low normal at 3.5. The patient notes that his presenting symptoms have significantly improved since admission. He states that he will not stay any longer than tomorrow. He continues to have a cough productive of dark mucus. No fevers. No chills. No pleuritic chest pain. No overt angina. No palpitations. No PND. No dizziness or near syncope. Past Medical and Surgical History: History of ventricular tachycardia/ventricular fibrillation cardiac arrest, November 22, 2016 Severe ischemic cardiomyopathy with remote inferior wall myocardial infarction, left ventricular ejection fraction 20 to 25% Multivessel coronary artery disease, status post November 28, 2016 coronary artery bypass surgery, receiving a CARABALLO to the LAD, saphenous vein graft to the obtuse marginal and saphenous vein graft to the PDA. Status post implantation of Medtronic Model [id number] single-chamber defibrillator on December 05, 2016 Ventricular tachycardia resulting in defibrillator shock in April 2019 Secondary mitral regurgitation Moderate pulmonary hypertension now present. 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 Anemia, thrombocytopenia History of retroperitoneal bleed Chronic tobacco abuse. Lung mass. Observed this admission. Chronic respiratory failure, emphysema Chronic alcohol use Medication and defibrillator follow-up noncompliance Family History: Brother with lung cancer. Sister with cancer Social History: + Ongoing tobacco use, every day smoker. Alcohol: 3 Grey Beams or Bison Light's every evening. No illegal drug use. Allergies Allergy/AdvReac Type Severity Reaction Status Date / Time No Known Allergies Allergy Verified 09/29/21 11:13 Home Medications Medication Instructions Recorded Confirmed Type aspirin 81 mg tablet,delayed 81 mg PO BID 06/04/19 09/29/21 History release (Adult Aspirin Regimen) furosemide 20 mg tablet 20 mg PO DAILY 09/22/21 09/29/21 History gabapentin 600 mg tablet 600 mg PO QID 09/22/21 09/29/21 History levofloxacin 500 mg tablet 500 mg PO DAILY 09/22/21 09/29/21 History sildenafil 100 mg tablet (Viagra) 100 mg PO DAILY PRN #14 tab 09/29/21 09/29/21 Rx metoprolol succinate 50 mg 50 mg PO DAILY #30 tab 09/30/21 Rx tablet,extended release 24 hr Patient History Medical History Anemia Chronic- stable CAD (coronary artery disease) Stents placed > 10 years ago; 3 vessel CABG 2017 COPD (chronic obstructive pulmonary disease) Ischemic cardiomyopathy with implantable cardioverter-defibrillator (ICD) 05/2019 ECHO shows EF of 20-25% MEDTRONIC DEFIB IMPLANTED AFTER CABG X 3 in 2017 Lesion of vocal fold PATIENT STATES DR DHILLON ATTEMPTED TO PASS SCOPE AND UNABLE. HE NEEDS THIS PROCEDURE (DIRECT MICROLAYNGOSCOPY WITH BIOPSIES)- CONCERNS FOR LARYNGEAL CANCER 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- CARDIAC ARREST WHILE DRIVING - HE WAS DEFIBRILLATED AT THE SCENE AND TAKEN TO [facility] AND THEN [facility] TO [facility] Peripheral vascular disease HAS STENT IN RIGHT LEG Surgical History History of cardiac cath HAD CATH AROUND 2006 WITH STENT; THEN IN 11/2016 HAD CATH WITH CABG X3 FOLLOW WITH [facility] History of coronary artery bypass graft 2017- CARABALLO to LAD, SVG to OM, SVG to PDA History of surgery on extremity RIGHT LEG AND HAD STENT PLACED 2016 History of throat surgery direct microlaryngoscopy with biopsies-06/25/2019-Dr. Dhillon Family History Mother Diabetes Brother Hypertension Myocardial infarction Denies family history of Ovarian cancer Prostate cancer Breast cancer Colorectal cancer Social History Smoking Status: Current every day smoker Tobacco Type: Cigarettes Cigarettes Per Day: 3-4; Second Hand Exposure: No; Hx Alcohol Use: Yes Alcohol type: beer and hard liquor Alcohol Intake Frequency Comment: 2-3 drinks a day Hx Substance Use: No Preferred Language: Faroese Communication Ability: Effective Visual Impairment: No Limitations Cardiovascular Specialist Required: No Beliefs That Will Affect Care: None marital status: Single Current Living Situation: Alone current occupational status: retired Feels Safe at Home: Yes Childhood Exposure to Second-Hand Smoke: Yes caffeine: Yes Dental Care, Regularly: No Physical Activity Frequency: Daily Seatbelt Use: never Sunscreen Use: No Assistive Devices: None Review of Systems Review of Systems: Complete review of systems is otherwise as stated above, negative, noncontributory Physical Exam Physical Exam: General: A&Ox3. NAD. HENT: Normocephalic. Atraumatic. Eyes: PER. Conjunctiva pink, sclera clear. Neck: Bilateral carotid bruits. No JVD. Heart: Regular at 70 bpm. Apical systolic murmur. No diastolic murmur. No rub. No gallop. PMI is displaced. Lungs: Diminished. Decreased. Scattered rhonchi. No wheeze. Abdomen: +BS. Extremities: No edema. No clubbing. No cyanosis. Limited neurological examination is without focal deficits. Pulses: radial=2/4, posterior tibial=1/4. Results & Data ([facility]) Vital Signs (Past 12 Hours) Vital Signs Temp Pulse Pulse Resp BP Pulse Ox 09/24/21 12:12 36.5 C 09/24/21 08:00 61 09/24/21 07:58 37.0 C 79 16 110/74 97 09/24/21 04:00 36.6 C 73 16 106/61 99 Laboratory Results Laboratory Results - last 48 hr 09/22/21 09/22/21 09/22/21 20:45 20:45 20:45 WBC 5.71 RBC 3.89 L Hgb 12.9 L Hct 37.1 L MCV 95.4 MCH 33.2 MCHC 34.8 RDW Std Deviation 44.9 RDW Coeff of Erik 13.0 Plt Count 118 L MPV 9.2 Immature Gran % (Auto) 0.4 Neut % (Auto) 79.3 Lymph % (Auto) 14.7 Faulkner % (Auto) 4.7 Eos % (Auto) 0.7 Baso % (Auto) 0.2 Neut # (Auto) 4.53 Lymph # (Auto) 0.84 L Faulkner # (Auto) 0.27 Eos # (Auto) 0.04 Baso # (Auto) 0.01 Immature Gran # (Auto) 0.02 PT 10.9 INR 1.0 APTT 31.0 PTT Ratio 1.1 VBG pH VBG pCO2 VBG pO2 VBG HCO3 VBG O2 Saturation VBG Base Excess Barometric Pressure Sodium 115 L* Potassium 4.0 Chloride 74 L Carbon Dioxide 35 H Anion Gap 6 BUN 16 Creatinine 0.95 Est Cr Clr Drug Dosing 59.3 Est GFR ( Amer) 96.3 Est GFR (Non-Af Amer) 83.1 BUN/Creatinine Ratio 16.8 Glucose 83 Osmolality Calcium 8.8 Phosphorus Magnesium 1.6 L Total Bilirubin 1.0 AST 36 ALT 20 Alkaline Phosphatase 97 Troponin I High Sens 21.6 H B-Natriuretic Peptide Total Protein 7.2 Albumin 4.0 Globulin 3.2 Albumin/Globulin Ratio 1.3 Procalcitonin Urine Osmolality Ur Random Sodium SARS-CoV-2, RNA, NAAT 09/22/21 09/22/21 09/22/21 20:45 20:45 21:54 WBC RBC Hgb Hct MCV MCH MCHC RDW Std Deviation RDW Coeff of Erik Plt Count MPV Immature Gran % (Auto) Neut % (Auto) Lymph % (Auto) Faulkner % (Auto) Eos % (Auto) Baso % (Auto) Neut # (Auto) Lymph # (Auto) Faulkner # (Auto) Eos # (Auto) Baso # (Auto) Immature Gran # (Auto) PT INR APTT PTT Ratio VBG pH 7.34 L VBG pCO2 69 H VBG pO2 24 VBG HCO3 37 VBG O2 Saturation < 60.0 VBG Base Excess 8.9 Barometric Pressure 733.0 Sodium Potassium Chloride Carbon Dioxide Anion Gap BUN Creatinine Est Cr Clr Drug Dosing Est GFR ( Amer) Est GFR (Non-Af Amer) BUN/Creatinine Ratio Glucose Osmolality Calcium Phosphorus Magnesium Total Bilirubin AST ALT Alkaline Phosphatase Troponin I High Sens B-Natriuretic Peptide 1975 H Total Protein Albumin Globulin Albumin/Globulin Ratio Procalcitonin Urine Osmolality Ur Random Sodium SARS-CoV-2, RNA, NAAT NEGATIVE 09/23/21 09/23/21 09/23/21 00:26 01:30 01:30 WBC RBC Hgb Hct MCV MCH MCHC RDW Std Deviation RDW Coeff of Erik Plt Count MPV Immature Gran % (Auto) Neut % (Auto) Lymph % (Auto) Faulkner % (Auto) Eos % (Auto) Baso % (Auto) Neut # (Auto) Lymph # (Auto) Faulkner # (Auto) Eos # (Auto) Baso # (Auto) Immature Gran # (Auto) PT INR APTT PTT Ratio VBG pH 7.30 L VBG pCO2 71 H VBG pO2 64 VBG HCO3 34 VBG O2 Saturation 90.6 VBG Base Excess 5.6 Barometric Pressure Sodium Potassium Chloride Carbon Dioxide Anion Gap BUN Creatinine Est Cr Clr Drug Dosing Est GFR ( Amer) Est GFR (Non-Af Amer) BUN/Creatinine Ratio Glucose Osmolality Calcium Phosphorus Magnesium Total Bilirubin AST ALT Alkaline Phosphatase Troponin I High Sens B-Natriuretic Peptide Total Protein Albumin Globulin Albumin/Globulin Ratio Procalcitonin Urine Osmolality 223 L Ur Random Sodium 91 SARS-CoV-2, RNA, NAAT 09/23/21 09/23/21 09/23/21 01:41 01:41 01:41 WBC RBC Hgb Hct MCV MCH MCHC RDW Std Deviation RDW Coeff of Erik Plt Count MPV Immature Gran % (Auto) Neut % (Auto) Lymph % (Auto) Faulkner % (Auto) Eos % (Auto) Baso % (Auto) Neut # (Auto) Lymph # (Auto) Faulkner # (Auto) Eos # (Auto) Baso # (Auto) Immature Gran # (Auto) PT INR APTT PTT Ratio VBG pH VBG pCO2 VBG pO2 VBG HCO3 VBG O2 Saturation VBG Base Excess Barometric Pressure Sodium 114 L* Potassium 4.3 Chloride 76 L Carbon Dioxide 35 H Anion Gap 3 BUN 16 Creatinine 0.90 Est Cr Clr Drug Dosing 75.3 Est GFR ( Amer) 102.8 Est GFR (Non-Af Amer) 88.7 BUN/Creatinine Ratio 17.8 Glucose 99 Osmolality 251 L Calcium 8.6 Phosphorus 3.5 Magnesium Total Bilirubin AST ALT Alkaline Phosphatase Troponin I High Sens 16.9 D B-Natriuretic Peptide Total Protein Albumin Globulin Albumin/Globulin Ratio Procalcitonin < 0.05 Urine Osmolality Ur Random Sodium SARS-CoV-2, RNA, NAAT 09/23/21 09/23/21 09/23/21 01:41 07:59 07:59 WBC 4.25 L RBC 3.73 L Hgb 12.2 L Hct 35.6 L MCV 95.4 MCH 32.7 MCHC 34.3 RDW Std Deviation 45.6 RDW Coeff of Erik 13.1 Plt Count 114 L MPV 9.4 Immature Gran % (Auto) 0.2 Neut % (Auto) 95.5 Lymph % (Auto) 3.1 Faulkner % (Auto) 1.2 Eos % (Auto) 0.0 Baso % (Auto) 0.0 Neut # (Auto) 4.06 Lymph # (Auto) 0.13 L Faulkner # (Auto) 0.05 L Eos # (Auto) 0.00 Baso # (Auto) 0.00 Immature Gran # (Auto) 0.01 PT INR APTT PTT Ratio VBG pH VBG pCO2 VBG pO2 VBG HCO3 VBG O2 Saturation VBG Base Excess Barometric Pressure Sodium 119 L* Potassium 4.2 Chloride 77 L Carbon Dioxide 38 H Anion Gap 4 BUN 15 Creatinine 0.98 Est Cr Clr Drug Dosing 66.3 Est GFR ( Amer) 92.7 Est GFR (Non-Af Amer) 80.0 BUN/Creatinine Ratio 15.3 Glucose 161 H Osmolality Calcium 8.7 Phosphorus Magnesium 2.4 Total Bilirubin AST ALT Alkaline Phosphatase Troponin I High Sens Cancelled B-Natriuretic Peptide Total Protein Albumin Globulin Albumin/Globulin Ratio Procalcitonin Urine Osmolality Ur Random Sodium SARS-CoV-2, RNA, NAAT 09/23/21 09/23/21 09/24/21 12:55 17:13 06:24 WBC RBC Hgb Hct MCV MCH MCHC RDW Std Deviation RDW Coeff of Erik Plt Count MPV Immature Gran % (Auto) Neut % (Auto) Lymph % (Auto) Faulkner % (Auto) Eos % (Auto) Baso % (Auto) Neut # (Auto) Lymph # (Auto) Faulkner # (Auto) Eos # (Auto) Baso # (Auto) Immature Gran # (Auto) PT INR APTT PTT Ratio VBG pH VBG pCO2 VBG pO2 VBG HCO3 VBG O2 Saturation VBG Base Excess Barometric Pressure Sodium 121 L 122 L 126 L Potassium 3.8 3.8 3.5 Chloride 77 L 77 L 80 L Carbon Dioxide 39 H 39 H 42 H* Anion Gap 5 6 4 BUN 15 17 17 Creatinine 1.04 1.08 1.11 Est Cr Clr Drug Dosing 62.5 60.1 59.0 Est GFR ( Amer) 86.3 82.5 79.8 Est GFR (Non-Af Amer) 74.5 71.1 68.8 BUN/Creatinine Ratio 14.4 15.7 15.3 Glucose 237 H 139 H 96 Osmolality Calcium 8.7 8.5 8.5 Phosphorus Magnesium Total Bilirubin AST ALT Alkaline Phosphatase Troponin I High Sens B-Natriuretic Peptide Total Protein Albumin Globulin Albumin/Globulin Ratio Procalcitonin Urine Osmolality Ur Random Sodium SARS-CoV-2, RNA, NAAT 09/24/21 10:07 WBC RBC Hgb Hct MCV MCH MCHC RDW Std Deviation RDW Coeff of Erik Plt Count MPV Immature Gran % (Auto) Neut % (Auto) Lymph % (Auto) Faulkner % (Auto) Eos % (Auto) Baso % (Auto) Neut # (Auto) Lymph # (Auto) Faulkner # (Auto) Eos # (Auto) Baso # (Auto) Immature Gran # (Auto) PT INR APTT PTT Ratio VBG pH VBG pCO2 VBG pO2 VBG HCO3 VBG O2 Saturation VBG Base Excess Barometric Pressure Sodium Potassium Chloride Carbon Dioxide Anion Gap BUN Creatinine Est Cr Clr Drug Dosing Est GFR ( Amer) Est GFR (Non-Af Amer) BUN/Creatinine Ratio Glucose Osmolality Calcium Phosphorus Magnesium Total Bilirubin AST ALT Alkaline Phosphatase Troponin I High Sens B-Natriuretic Peptide Total Protein Albumin Globulin Albumin/Globulin Ratio Procalcitonin Urine Osmolality 234 L Ur Random Sodium SARS-CoV-2, RNA, NAAT Diagnostic Findings Continuous telemetry monitoring reveals frequent premature atrial and ventricular contractions. Episodes of PAT noted yesterday. Short episodes of wide-complex rhythm with rates in the 70s. No atrial fibrillation. September 23, 2021 TTE interpretation summary ([facility], Dr. Colon): LV systolic function is severely reduced. Ejection fraction 20 to 25%. Severe global hypokinesis of the left ventricle. Mild to moderate mitral regurgitation. Elevated RVSP, 40 to 50 mmHg. Mildly dilated IVC. No pericardial effusion. Device interrogation this admission, September 24, 2021, demonstrates a single-chamber Medtronic device, functioning appropriately, with 5.4 years of remaining longevity. Backup pacemaker set at VVI 40. Since November 12, 2019 (last interrogation), patient has had 4 episodes of VF, 742 episodes of nonsustained ventricular tachycardia. Two of the episodes of VF were treated successfully with ATP and two aborted.
[2021-09-24] MEDS ORDERED: POTASSIUM CHLORIDE CRTAB 20 MEQ TABCR PO ONE (14:45)
[2021-09-24 15:14] LABS: BUN Creatinine Ratio 16.3 (10-20); Calcium 8.6 mg/dl (8.5-10.1); Creatinine Clr Calc Pharmacy 66.8 ml/min; Est GFR (African American) 92.7 ml/min
[2021-09-24] MEDS ORDERED: SODIUM CHLORIDE 3 % 100 ML IV ONE (16:18)
[2021-09-24] MEDS: FUROSEMIDE 20 MG TAB PO SCH (18:14)
--- NOTE | 2021-09-24 18:51 | Hospitalist Progress Note ---
Date of Service September 24, 2021 Assessment & Plan (1) Hyponatremia: Plan: 66yo male with history of CAD s/p CABG, VT/VF s/p AICD placement, ICM with reduced EF of 20-25% presenting with progressive LE edema x 2 weeks, SOB x 1 day. Found to be hyponatremic with Yw=860. Patient with chronic hyponatremia, however, Na 124-129 over the last two readings. Possible mild symptoms in form of worsening balance, somnolence. No seizure. Suspect hypervolemic hyponatremia secondary to acute decompensated CHF. -His urine is very diluted doubt this is SIADH -Responded well to Lasix -Sodium is trending up currently is 126 Patient developed contraction alkalosis cut down the Lasix to 40 mg (2) Hypoxia: Plan: Patient with hypoxia on arrival, improved with 2L O2 by NC. Ddx to include pulmonary edema, CHF. Wheezing present on exam. Patient reports being diagnosed recently with PNA and was prescribed Levaquin which he has not yet started. He denies fever/chills/rigors, no leukocytosis. Some groundglass findings at RML ?developing infectious process -Procalcitonin is low Started on doxycycline Add Rocephin 1 g daily -DuoNeb as needed (3) Alkalosis, metabolic: Plan: Contraction alkalosis secondary to Lasix, cut on the dose of Lasix (4) Ischemic cardiomyopathy with implantable cardioverter-defibrillator (ICD): Plan: Patient with CAD s/p CABG, VT/VF arrest s/p AICD placement. No device discharge reported. Patient has severely reduced EF of 20-25% per last echo in 2019. Medications presently ASA and Metoprolol. -Continue ASA -Continue Metoprolol -Patient may benefit from management with TERA-inhibitor or Entresto, possible SGLT2 -Referral has made to congestive heart clinic (5) Lung mass: Plan: Radiology reported: Scattered airspace opacities within lungs which favor an infectious process. A few irregular nodular densities are also likely infectious however a follow-up chest CT in 6 months to ensure resolution is recommended. Asked the patient to follow (6) Laryngeal squamous cell carcinoma: Plan: s/p chemo and XRT. Cancer free, no active ongoing treatments at this time -Outpatient followup as instructed (7) Anemia: Plan: Stable. No active bleeding -Continue to monitor (8) CAD (coronary artery disease): Plan: Patient without chest pain. Mild elevation of troponin. -Telemetry monitoring -Repeat troponin with next blood draw -Continue ASA and Metoprolol. Consider initiation of additional therapies such as TERA/ARB or Entresto therapy -Check 2D echo (9) COPD (chronic obstructive pulmonary disease): Plan: Diffuse wheezing -DuoNeb q 4 hours -Albuterol q2 hours PRN (10) Acute exacerbation of CHF (congestive heart failure): Plan: Systolic type, acute on chronic presented with lower extremity edema, hypoxic aspiratory failure, responded to leg Plan: F/E/N - Lasix 40mg IV x 1, re-dose as needed, Mg repletion, repeat chemistry q 4 hours, AHA/Fluid restriction Ppx - Lovenox 40 Code - Full per discussion with patient Dispo - Admit to PCU Admission and Anticipated Discharge Date Admission Date: September 22, 2021 Subjective No acute events overnight. Cough improved. Breathing comfortably. Appetite is good. Edema in legs resolved. Overall, Rafael feels well. He said that he hopes to be discharged home today. I/O negative >2 L with furosemide BID. Review of Systems Review of Systems: Complete review of systems is otherwise as stated above, negative, noncontributory Genitourinary: + urinary frequency; no dysuria, no difficulty urinating or no urinary hesitancy Musculoskeletal: + stiffness Physical Exam Physical Exam: General: patient somnolent, arousable, answers questions appropriately and follows commands Skin: warm, dry, intact, no rashes or lesions HEENT: NC/AT, PERRL, EOMI, anicteric sclera, conjunctiva without injection, ex ternal ear normal to inspection and nontender, nares patent, moist mucus membranes, dentition intact, no oropharyngeal lesions, neck supple, trachea midline, no LAD, no thyromegaly, no JVD Heart: +S1/S2, regular, no m/r/g Lungs: diminished breath sounds bilaterally with inspiratory and expiratory wheezing bilaterally Abd: +BS, soft, NT/ND, no masses/organomegaly/ascites Ext: warm, 2+ pulses in UE/LE bilaterally, no clubbing/cyanosis, 3+ edema to thighs bilaterally Neuro: nonfocal, patient AA&O x 4, speech intact, +hoarseness, no facial droop, moving all extremities on command with equal strength 5/5 Results & Data Results & Data ([facility]) Vital Signs (Past 12 Hours) Vital Signs Temp Pulse Pulse Resp BP Pulse Ox 09/24/21 16:11 76 09/24/21 15:49 36.6 C 73 17 109/57 L 100 09/24/21 12:12 36.5 C 09/24/21 08:00 61 09/24/21 07:58 37.0 C 79 16 110/74 97 PG Care Time/CCT Total # of Minutes Spent Total Time Spent with Patient: Total time spent is greater than 50% in coordination of care (as documented) at patient's floor/unit and/or counseling patient: Coding Level of Care Code 92558 Subseq Hosp Care Lvl 3 Diagnoses Hyponatremia E87.1 Hypoxia R09.02 Ischemic cardiomyopathy with implantable cardioverter-defibrillator (ICD) I25.5; Z95.810 Lung mass R91.8 Laryngeal squamous cell carcinoma C32.9 Anemia D64.9 CAD (coronary artery disease) I25.10 COPD (chronic obstructive pulmonary disease) J44.9 Alkalosis, metabolic E87.3 Acute exacerbation of CHF (congestive heart failure) I50.9
--- NOTE | 2021-09-24 20:24 | Communication Note ---
Date of Service: September 24, 2021 Patient was complaining of new constant 9/10 bilat calf soreness/cramping. Voltaren gel w/o relief. He states his lower extremity size has decreased significantly since diuresing, and is smaller than his baseline. On exam, no ttp, erythema, or edema of lower extremities. Adding BMP and Mg to recent sodium labdraw. Patient agreed to try the prn tylenol that has been ordered. Repleting Mg of 1.5. Update: bilateral calf pain has resolved. 3 AM: informed that patient woke from sleep from cough. He then had hoarse voice and mild blood tinged sputum. Considered aspiration. Noted hx of laryngeal cancer in remission, but less likely related as symptoms are acute. Monitor clinically. Continuous pulse ox for tonight. Patient refused 2view cxr and suction. Consider portable cxr later today.
[2021-09-24] MEDS: ACETAMINOPHEN 325 MG TAB PO PRN (20:31)
[2021-09-24] MEDS: ENOXAPARIN INJ 40 MG/0.4 ML SYR SQ SCH (20:32)
[2021-09-24 21:21] LABS: Calcium 8.3 mg/dl (8.5-10.1); Creatinine Clr Calc Pharmacy 65.5 ml/min; Est GFR (African American) 90.5 ml/min; Est GFR (Non-African American) 78.1 ml/min; Magnesium 1.5 mg/dl (1.7-2.4); Potassium 3.8 mmol/L (3.5-5.1)
[2021-09-25] MEDS: MAGNESIUM SULFATE / D5W 1 GM/100 ML BAG IV SCH ×2 (01:13→03:19)
[2021-09-25 08:49] LABS: Albumin Level 3.3 gm/dl (3.4-5.0); BUN Creatinine Ratio 23.9 (10-20); Blood Urea Nitrogen 21 mg/dl (6-23); Calcium 8.9 mg/dl (8.5-10.1); Carbon Dioxide > 45 mmol/L (21-32); Chloride 83 mmol/L (98-107); Creatinine Clr Calc Pharmacy 74.4 ml/min; Est GFR (African American) 103.7 ml/min; Est GFR (Non-African American) 89.5 ml/min; Glucose 87 mg/dl (70-99(Fasting)); Phosphorus 2.4 mg/dl (2.5-4.9); Potassium 4.2 mmol/L (3.5-5.1); Sodium 129 mmol/L (136-145)
--- NOTE | 2021-09-25 08:49 | Nephrology Progress Note ---
Date of Service September 25, 2021 Assessment & Plan (1) Hyponatremia: Plan: * Patient wishes to be discharged. If discharge provided, recommend continue 1L /day oral fluid restriction, liberal NaCl intake, furosemide 20 mg po qAM * Please schedule follow up w/ Dr. Phillips within 1 - 2 weeks of discharge * Patient will also require follow up w/ PCP for management of hypothyroidism Admission and Anticipated Discharge Date Admission Date: September 22, 2021 Subjective Mr. Pearl was evaluated in his hospital room this morning. He was upset regarding his continued hospitalization and daily oral fluid restriction. He is anxious to speak to the hospitalist and intends to sign out of the hospital AMA if not discharged this morning. Review of Systems Constitutional: no fever Eyes: no problem reported Ear, Nose, Mouth, Throat: no problem reported Respiratory: no cough and no dyspnea Cardiovascular: no chest pain, no palpitations and no edema Gastrointestinal: no abdominal pain Genitourinary: no dysuria, no urinary hesitancy or no hematuria Musculoskeletal: no back pain Integumentary: no rash Neurologic: no dizziness and no confusion Physical Exam Constitutional: + frail appearing; not in distress Eyes: PERRL, conjunctivae normal, anicteric sclerae ENMT: Mouth: + dry oral mucous membranes Neck: trachea midline, no thyromegaly Respiratory: normal respiratory effort, lungs clear to auscultation Cardiovascular: RRR, no murmur, no edema Gastrointestinal (Abdomen): normal bowel sounds, soft, nontender, no hepatosplenomegaly Skin: no rashes, warm and dry Neurologic: awake; not confused Results & Data ([facility]) Vital Signs (Past 12 Hours) Vital Signs Temp Pulse Pulse Resp BP Pulse Ox 09/25/21 08:00 36.6 C 69 19 129/70 100 09/25/21 03:00 36.8 C 73 20 132/83 99 09/25/21 00:27 79 09/24/21 23:00 36.7 C 70 20 120/65 96 Laboratory Results Laboratory Tests 09/24/21 09/25/21 14:31 07:22 Sodium 129 L Potassium 4.2 Chloride 83 L Carbon Dioxide > 45 H* BUN 21 Creatinine 0.88 Glucose 87 Calcium 8.9 Phosphorus 2.4 L Albumin 3.3 L TSH 5.683 H PG Care Time/CCT Total # of Minutes Spent Total Time Spent with Patient: Total time spent is greater than 50% in coordination of care (as documented) at patient's floor/unit and/or counseling patient: Coding Level of Care Code 99571 Subseq Hosp Care Lvl 3 Diagnoses Hyponatremia E87.1
[2021-09-25] MEDS: ASPIRIN 81 MG ECTAB PO SCH (08:55)
[2021-09-25] MEDS: METOPROLOL SUCC 50MG EXT REL TAB PO SCH (08:55)
[2021-09-25] MEDS: GABAPENTIN 600 MG TAB PO SCH (08:56)
[2021-09-25] MEDS: predniSONE 20 MG TAB PO SCH (08:56)
[2021-09-25] MEDS: DOXYCYCLINE HYCLATE 100 MG CAP PO SCH (08:56)
[2021-09-25] MEDS ORDERED: FUROSEMIDE 40 MG TAB PO SCH (09:00)
[2021-09-25] MEDS: FUROSEMIDE 20 MG TAB PO SCH (09:03)
--- NOTE | 2021-09-25 15:15 | Discharge Summary ---
Date of Service September 25, 2021 Admission HPI Per Admitting Provider Rafael Pearl is a 66yo male with history of CAD s/p remote inferior wall IN, CABG in 2017, ischemic cardiomyopathy (last EF on record 20-25% in 2019) VT/VF arrest in 2017 s/p AICD placement, COPD, current smoker, chronic hyponatremia presenting with progressive bilateral LE edema as well as SOB. Patient reports worsening bilateral LE edema over the last two weeks. Swelling is into his thighs bilaterally. Today he developed shortness of breath and ALLRED. He has a cough productive for clear sputum, "dark" on occasion but no hemoptysis. Patient was diagnosed with Pneumonia last week and was given a prescription for Levaquin. He filled the prescription today but hasn't taken any of the medication yet. He denies fever, chills, sweats, rigors. Denies chest pain, palpitations, abdominal pain, nausea, vomiting, diarrhea or constipation. He reports he is eating well, having normal BMs and UOP. He does report some fatigue as well as episodes of confusion and poor balance. No additional complaints at this time. In the ER patieint afebrile, HD stable. Hypoxic on arrival to 86% on room air. He was placed on 2L NC with improvement in saturations, presently 100%. ER Course: Albuterol 3mL neb, Solumedrol 125mg Principal Diagnosis CHF exacerbation systolic type acute on chronic, noncompliance, acute on chronic hyponatremia acute hypoxic respiratory failure, community-acquired pneumonia, contraction alkalosis, Discharge Exam General: patient somnolent, arousable, answers questions appropriately and follows commands Skin: warm, dry, intact, no rashes or lesions HEENT: NC/AT, PERRL, EOMI, anicteric sclera, conjunctiva without injection, external ear normal to inspection and nontender, nares patent, moist mucus membranes, dentition intact, no oropharyngeal lesions, neck supple, trachea midline, no LAD, no thyromegaly, no JVD Heart: +S1/S2, regular, no m/r/g Lungs: diminished breath sounds bilaterally with inspiratory and expiratory wheezing bilaterally Abd: +BS, soft, NT/ND, no masses/organomegaly/ascites Ext: warm, 2+ pulses in UE/LE bilaterally, no clubbing/cyanosis, 3+ edema to thighs bilaterally Neuro: nonfocal, patient AA&O x 4, speech intact, +hoarseness, no facial droop, moving all extremities on command with equal strength 5/5 Discharge Data Allergies Allergy/AdvReac Type Severity Reaction Status Date / Time No Known Allergies Allergy Verified 09/22/21 21:08 Consultations 09/22/21 22:43 ED Decision to Admit Stat 09/23/21 01:07 Consult Nephrology Routine 09/23/21 18:05 [facility] CHF Program Referral Routine Ordered Studies 09/22/21 20:35 CT angio chest PE protocol Urgent Hospital Course (1) Hyponatremia: 66yo male with history of CAD s/p CABG, VT/VF s/p AICD placement, ICM with reduced EF of 20-25% presenting with progressive LE edema x 2 weeks, SOB x 1 day. Found to be hyponatremic with Ao=293. Patient with chronic hyponatremia, however, Na 124-129 over the last two readings. He presented with acute hypoxic respiratory failure, lower extremity edema evidence of congestion on imaging studies, low sodium level of 115 Patient apparently was recently started on Lasix, however he did not have taken his prescriptions yet Start Lasix 40 mg twice daily responded well sodium improved to 124 and prior to discharge increased to 129 Patient developed contraction alkalosis most likely secondary to diuretic effect Urine spot it was low which goes against SIADH Patient signed against medical (2) Acute exacerbation of CHF (congestive heart failure): Most likely secondary to poor compliance, patient is not an appropriate medication for CHF Responded well to Lasix Patient currently is not hypoxic anymore Patient was referred to us CHF clinic Patient discharged on Lasix and metoprolol (3) Hypoxia: Resolved most likely multifactorial including pneumonia and CHF exacerbation Patient initially started on Rocephin and doxycycline Discharged on Levaquin (4) Pneumonia: Evidence of pneumonia imaging studies, started on Rocephin and doxycycline, patient discharged on Levaquin (5) Alkalosis, metabolic: Contraction alkalosis secondary to Lasix, cut on the dose of Lasix at discharge, patient was started on Lasix 40 mg twice daily and then was cut down to 40 mg daily and then to 20 mg daily, patient with advised to follow-up with PCP/cardiology in 1 week (6) Ischemic cardiomyopathy with implantable cardioverter-defibrillator (ICD): Patient with CAD s/p CABG, VT/VF arrest s/p AICD placement. No device discharge reported. Patient has severely reduced EF of 20-25% per last echo in 2019. Medications presently ASA and Metoprolol. -Continue ASA -Continue Metoprolol -Patient may benefit from management with TERA-inhibitor or Entresto, possible SGLT2 -Referral has made to congestive heart clinic (7) Lung mass: Radiology reported: Scattered airspace opacities within lungs which favor an infectious process. A few irregular nodular densities are also likely infectious however a follow-up c hest CT in 6 months to ensure resolution is recommended. 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 Cancer free, no active ongoing treatments at this time -Outpatient followup as instructed (9) Anemia: Stable. No active bleeding -Continue to monitor (10) CAD (coronary artery disease): Patient without chest pain. Mild elevation of troponin. -Telemetry monitoring -Repeat troponin with next blood draw -Continue ASA and Metoprolol. Consider initiation of additional therapies such as TERA/ARB or Entresto therapy -Check 2D echo (11) COPD (chronic obstructive pulmonary disease): Diffuse wheezing -DuoNeb q 4 hours -Albuterol q2 hours PRN F/E/N - Lasix 40mg IV x 1, re-dose as needed, Mg repletion, repeat chemistry q 4 hours, AHA/Fluid restriction Ppx - Lovenox 40 Code - Full per discussion with patient Dispo - Admit to PCU Total Time Total Time Spent Total Time Spent (In Minutes): 45 Discharge Plan Discharge Items Patient Disposition: Against Medical Advice Reason For Visit: HYPONATREMIA, SOB Condition on Discharge: Fair Activity: Resume your previous activity Lifting: Gradually increase as tolerated and No more than 5 pounds Lifting Comment: no more than 5 pound Bathing: No limitations Sexual Activity: Wait until after follow-up appointment Exercise/Sports: Gradually increase as tolerated Weightbearing: Full weightbearing Non-emergency contact: Primary Care Provider Follow-up/Referrals: Wyatt Phillips DO [Physician] - 10/07/21 (hyponatremia ,contraction alkalosis) Riri Mosqueda MD [Primary Care Provider] - Fluids: 1200ml (5 cups) Addtl Escrow Officer Provider Instructions: please check your Bicarbonate ( HCO3) , Sodium ,Kidney function in one week Pending Studies at Discharge: Yes Stand-Alone Forms: My [employer], Smoking Cessation Skilled Items Patient informed of condition?: Yes DNR: No Discharge Level of Care: Other Communicable Disease: No Discharge Prognosis: Stable Medications and DC Order Prescriptions: Continued metoprolol succinate 50 mg tablet extended release 24 hr 50 mg PO DAILY Qty: 30 RF: 5 aspirin [Adult Aspirin Regimen] 81 mg tablet,delayed release (DR/EC) 81 mg PO BID RF: 0 furosemide 20 mg tablet 20 mg PO DAILY RF: 0 levofloxacin 500 mg tablet 500 mg PO DAILY RF: 0 gabapentin 600 mg tablet 600 mg PO QID RF: 0 Discharge Orders: Left Against Medical Advice (Routine); Ordered 09/25/21 Ordered By: Brian Mackenzie Admission Data Admit Date/Time: 09/22/21 23:15 Attending Provider: Brian Mackenzie Admit Provider: Roselia Mayer Primary Care Provider: Riri Mosqueda Other Providers: Roselia Mayer ; Wyatt Phillips ; Laney Alvarado Coding Level of Care Code D/C DAY MANAGEMENT >30 MINS Diagnoses Hyponatremia E87.1 Hypoxia R09.02 Alkalosis, metabolic E87.3 Ischemic cardiomyopathy with implantable cardioverter-defibrillator (ICD) I25.5; Z95.810 Lung mass R91.8 Laryngeal squamous cell carcinoma C32.9 Anemia D64.9 CAD (coronary artery disease) I25.10 COPD (chronic obstructive pulmonary disease) J44.9 Acute exacerbation of CHF (congestive heart failure) I50.9 Pneumonia J18.9
== END 2021-09-25 09:45 | disposition left against medical advice (07) | DRG 291 ==
LOC: ED 20:02 → SUATTDRO 23:15 → 2S 23:15

== ENCOUNTER 2021-10-27 21:31 | Inpatient (IN) ==
[2021-10-27 22:37] LABS: Hematocrit (blood only) 35.4 % (42-52); Hemoglobin 12.5 g/dL (14.0-18.0); Mean Corpuscular Hemoglobin 31.4 pg (25-34); Mean Corpuscular Hgb Conc 35.3 g/dL (32-36); Mean Corpuscular Volume 88.9 fL (80-100); RDW Coefficient of Variation 13.4 % (11.5-14.5); RDW Standard Deviation 43.9 fL (36.4-46.3); Red Blood Count 3.98 M/uL (4.7-6.1); White Blood Count 6.97 K/uL (4.8-10.8)
[2021-10-27 22:50] LABS: INR 1.1 (0.9-1.1); Partial Thromboplastin Ratio 1.1; Partial Thromboplastin Time 31.3 Seconds (21.0-31.0); Prothrombin Time 11.3 Seconds (9.0-12.0)
[2021-10-27 23:05] LABS: Basophils # (auto) 0.01 K/uL (0-0.2); Basophils % (auto) 0.1 %; Echinocytes 1+; Eosinophils # (auto) 0.06 K/uL (0-0.5); Eosinophils % (auto) 0.9 %; Immature Granulocytes # (auto) 0.02 K/uL (0.00-0.02); Immature Granulocytes % (auto) 0.3 %; Lymphocytes % (auto) 5.7 %; Mean Platelet Volume 10.5 fL (7.4-10.4); Monocytes # (auto) 0.48 K/uL (0.11-0.59); Monocytes % (auto) 6.9 %; Neutrophils % (auto) 86.1 %; Platelet Count 94 K/uL (130-400); Platelet Estimate Decreased (Normal)
[2021-10-27 23:18] LABS: Alanine Aminotransferase 13 U/L (7-52); Albumin Globulin Ratio 1.2 (0.9-2); Albumin Level 3.9 gm/dl (3.4-5.0); Alkaline Phosphatase 116 U/L (34-104); Anion Gap 5 (3-11); BUN Creatinine Ratio 16.1 (10-20); Bilirubin,Total 1.2 mg/dl (0.2-1.0); Blood Urea Nitrogen 14 mg/dl (6-23); Calcium 9.1 mg/dl (8.5-10.1); Carbon Dioxide 28 mmol/L (21-32); Chloride 81 mmol/L (98-107); Creatinine Clr Calc Pharmacy 75.1 ml/min; Est GFR (African American) 104.2 ml/min; Est GFR (Non-African American) 89.9 ml/min; Globulin 3.2 gm/dl (2.5-4.0); Glucose 77 mg/dl (70-99(Fasting)); Magnesium 1.5 mg/dl (1.7-2.4); Sodium 114 mmol/L (136-145); Total Protein 7.1 gm/dl (6.0-8.3)
[2021-10-27] MEDS ORDERED: methylPREDNISolone 125 MG/2 ML VIAL IV STA (23:25)
[2021-10-27] MEDS ORDERED: ALBUT/IPRATROP 3MG/0.5MG NEB 3 ML VIAL NEB STA (23:25)
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
[2021-10-28] MEDS ORDERED: SODIUM CHLORIDE 1 GM TABLET PO ONE (00:49)
--- NOTE | 2021-10-28 00:50 | History & Physical Report ---
Date of Service October 28, 2021 Assessment & Plan (1) Acute hyponatremia: Plan: Acute/chronic hyponatremia- Sodium 114 upon admission. Serum and urine osmolalities are now ordered and are pending Most recent hospitalization from 09/22-09/25/2021 again with sodium of 115 and was discharged on sodium of 129. Patient reports he ran out of his sodium chloride tablets. Restart sodium chloride 1 g p.o. 3 times daily, with first dose now Follow laboratories serially in a.m. Consideration to use of tolvaptan Fluid restrict to 1.5 L daily Follows with nephrology Dr. Phillips as an outpatient (2) Acute exacerbation of chronic obstructive pulmonary disease (COPD): Plan: Given Solu-Medrol 125 mg IV in the ED Solu-Medrol 40 mg IV every 8 hours Duonebs every 4 hours while awake and every 2 hours when necessary. (3) CAD (coronary artery disease): Plan: CAD/ischemic cardiomyopathy with ICD/hypertension- Continue metoprolol succinate and aspirin (4) Ischemic cardiomyopathy with implantable cardioverter-defibrillator (ICD): Plan: See above (5) Laryngeal squamous cell carcinoma: Plan: Restriction limiting oral intake (6) Hypomagnesemia: Plan: Magnesium 1.5 on admission Give mag sulfate 2 g IV and then repeat labs History of Present Illness Chief Complaint: The patient presents to the emergency department with worsening shortness of breath over the past few days. Primary Care Provider: Riri Mosqueda MD The patient is a 66-year-old male with a past medical history including chronic hyponatremia, COPD, nonsustained V. tach, ischemic cardiomyopathy, HFrEF, CAD, depression, ischemic cardiomyopathy with implantable ICD, AAA, and laryngeal squamous cell carcinoma. He presents to the emergency department with worsening shortness of breath over the past couple days. He reports having had nebulizer in the past but was not of much help, that most of his breathing issues are due to narrowing of his larynx due to his history of cancer. He reports running out of his prescription for salt tablets. Allergies Allergy/AdvReac Type Severity Reaction Status Date / Time No Known Allergies Allergy Verified 10/27/21 23:53 Home Medications Medication Instructions Recorded Confirmed Type aspirin 81 mg tablet,delayed 81 mg PO BID 06/04/19 10/27/21 History release (Adult Aspirin Regimen) gabapentin 600 mg tablet 600 mg PO QID 09/22/21 10/27/21 History sildenafil 100 mg tablet (Viagra) 100 mg PO DAILY PRN #14 tab 09/29/21 10/27/21 Rx metoprolol succinate 50 mg 50 mg PO DAILY #30 tab 09/30/21 10/27/21 Rx tablet,extended release 24 hr Past Med/Surg History Medical History Anemia Chronic- stable CAD (coronary artery disease) Stents placed > 10 years ago; 3 vessel CABG 2016 COPD (chronic obstructive pulmonary disease) Ischemic cardiomyopathy with implantable cardioverter-defibrillator (ICD) 05/2019 ECHO shows EF of 20-25% MEDTRONIC DEFIB IMPLANTED AFTER CABG X 3 in 2017 Lesion of vocal fold PATIENT STATES DR DHILLON ATTEMPTED TO PASS SCOPE AND UNABLE. HE NEEDS THIS PROCEDURE (DIRECT MICROLAYNGOSCOPY WITH BIOPSIES)- CONCERNS FOR LARYNGEAL CANCER 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- CARDIAC ARREST WHILE DRIVING - HE WAS DEFIBRILLATED AT THE SCENE AND TAKEN TO [facility] AND THEN LIFEFLIGHTED TO [facility] Peripheral vascular disease HAS STENT IN RIGHT LEG Surgical History History of cardiac cath HAD CATH AROUND 2006 WITH STENT; THEN IN 11/2016 HAD CATH WITH CABG X3 FOLLOW WITH [facility] History of coronary artery bypass graft 2017- CARABALLO to LAD, SVG to OM, SVG to PDA History of surgery on extremity RIGHT LEG AND HAD STENT PLACED 2016 History of throat surgery direct microlaryngoscopy with biopsies-06/25/2019-Dr. Dhillon Family History Mother Diabetes Brother Hypertension Myocardial infarction Denies family history of Ovarian cancer Prostate cancer Breast cancer Colorectal cancer Social History Smoking Status: Current some day smoker Tobacco Type: Cigarettes Cigarettes Per Day: 3-4; Second Hand Exposure: No; Hx Alcohol Use: Yes Alcohol type: beer and hard liquor Alcohol Intake Frequency Comment: 2-3 drinks a day Hx Substance Use: No Preferred Language: Slovak Communication Ability: Effective Visual Impairment: No Limitations Nub Card Tender Required: No Beliefs That Will Affect Care: None marital status: Single Current Living Situation: Alone current occupational status: retired Feels Safe at Home: Yes Childhood Exposure to Second-Hand Smoke: Yes caffeine: Yes Dental Care, Regularly: No Physical Activity Frequency: Daily Seatbelt Use: never Sunscreen Use: No Assistive Devices: None Review of Systems Review of Systems: The patient denies chest pain, palpitations, lower extremity swelling, fevers, chills, sweats, weight change, fatigue, nausea, vomiting, diarrhea , constipation, abdominal pain, pelvic pain, blood in urine or stool, dysuria, urinary frequency or urgency, lightheadedness, dizziness, headache, memory loss, loss of consciousness, rash, abnormal bruising or bleeding, imbalance, focal weakness, numbness or tingling in arms or legs, generalized arthralgias or myalgias, back or neck pain, or night sweats. The review of systems is otherwise negative other than for that already noted above, and at least 10 systems have been reviewed. Physical Exam Physical Exam: The patient is awake, alert and oriented 3, normocephalic and atraumatic, lying in bed and in no acute distress. HEENT--PERRL, EOMI, mucous membranes and oropharynx dry. Neck--supple. No JVD. No bruits. Thyroid normal, trachea midline, no adenopathy. Heart--normal S1 and S2. No murmurs, rubs or gallops. Lungs--coarse breath sounds bilaterally, no respiratory distress, no accessory muscle use. Abdomen--normal bowel sounds and soft. Nontender. Nondistended, no hernias or masses, no organomegaly. Extremities--no cyanosis or clubbing. No edema. Dermatologic--normal skin turgor, normal color, no abnormal lymph nodes, no rash. Neurologic--cranial nerves II through XII grossly intact. Rheumatologic--normal range of motion. Psychiatric--normal affect. Results & Data Results & Data ([facility]) Vital Signs (Past 12 Hours) Vital Signs Temp Pulse Pulse Resp BP Pulse Ox 10/27/21 22:30 100 10/27/21 22:29 79 24 100 10/27/21 21:41 36.8 C 79 22 144/81 H 99 Laboratory Results Laboratory Results WBC 6.97 K/uL (4.8-10.8) 10/27/21 22:26 RBC 3.98 M/uL (4.7-6.1) L 10/27/21: Hgb 12.5 g/dL (14.0-18.0) L 10/27/21: Hct 35.4 % (42-52) L 10/27/21: MCV 88.9 fL (80-100) 10/27/21: MCH 31.4 pg (25-34) 10/27/21: MCHC 35.3 g/dL (32-36) 10/27/21: RDW Std Deviation 43.9 fL (36.4-46.3) 10/27/21 RDW Coeff of Erik 13.4 % (11.5-14.5) 10/27/21 Plt Count 94 K/uL (130-400) L 10/27/21: MPV 10.5 fL (7.4-10.4) H 10/27/21: Immature Gran % (Auto) 0.3 % 10/27/21: Neut % (Auto) 86.1 % 10/27/21: Lymph % (Auto) 5.7 % 10/27/21: Slope % (Auto) 6.9 % 10/27/21: Eos % (Auto) 0.9 % 10/27/21: Baso % (Auto) 0.1 % 10/27/21: Neut # (Auto) 6.00 K/uL (1.4-6.5) 10/27/21: Lymph # (Auto) 0.40 K/uL (1.2-3.4) L 10/27/21: Slope # (Auto) 0.48 K/uL (0.11-0.59) 10/27/21: Eos # (Auto) 0.06 K/uL (0-0.5) 10/27/21: Baso # (Auto) 0.01 K/uL (0-0.2) 10/27/21: Immature Gran # (Auto) 0.02 K/uL (0.00-0.02) 10/27/21: Platelet Estimate Decreased (Normal) L 10/27/21: Echinocytes 1+ 06/08/22 22:26 PT 11.3 Seconds (9.0-12.0) 10/27/21 22:26 INR 1.1 (0.9-1.1) 10/27/21 22:26 APTT 31.3 Seconds (21.0-31.0) H 10/27/21 22: PTT Ratio 1.1 10/27/21 22:26 Sodium 114 mmol/L (136-145) L* 10/27/21 22:26 Potassium 5.0 mmol/L (3.5-5.1) 10/27/21 23:53 Chloride 81 mmol/L (98-107) L 10/27/21 22:26 Carbon Dioxide 28 mmol/L (21-32) 10/27/21 22:26 Anion Gap 5 (3-11) 10/27/21 22:26 BUN 14 mg/dl (6-23) 10/27/21 22:26 Creatinine 0.87 mg/dl (0.6-1.4) 10/27/21 22:26 Est Cr Clr Drug Dosing 75.1 ml/min 10/27/21 22:26 Est GFR ( Amer) 104.2 ml/min 10/27/21 22:26 Est GFR (Non-Af Amer) 89.9 ml/min 10/27/21 22:26 BUN/Creatinine Ratio 16.1 (10-20) 10/27/21 22:26 Glucose 77 mg/dl (70-99(Fasting)) 10/27/21 22:26 Osmolality 243 mOsm/kg (280-300) L 10/28/21 00:26 Calcium 9.1 mg/dl (8.5-10.1) 10/27/21 22:26 Magnesium 1.5 mg/dl (1.7-2.4) L 10/27/21 22:26 Total Bilirubin 1.2 mg/dl (0.2-1.0) H 10/27/21 22:26 AST 24 U/L (13-39) 10/27/21 23:53 ALT 13 U/L (7-52) 10/27/21 22:26 Alkaline Phosphatase 116 U/L (34-104) H 10/27/21 22:26 Troponin I High Sens 12.3 pg/ml (0-20) 06/08/22 22:26 Total Protein 7.1 gm/dl (6.0-8.3) 10/27/21 22:26 Albumin 3.9 gm/dl (3.4-5.0) 10/27/21 22:26 Globulin 3.2 gm/dl (2.5-4.0) 10/27/21 22:26 Albumin/Globulin Ratio 1.2 (0.9-2) 10/27/21 22:26 SARS-CoV-2, RNA, NAAT NEGATIVE (NEGATIVE) 10/27/21 22:26 Code Status & VTE Plan Code Status Full code VTE Prophylaxis Plan VTE Prophylaxis will be ordered: Yes PG Care Time/CCT Total # of Minutes Spent Total Time Spent with Patient: Total time spent is greater than 50% in coordination of care (as documented) at patient's floor/unit and/or counseling patient: Coding Level of Care Code 62078 Initial Inpt Care Lvl 3 Diagnoses Acute hyponatremia E87.1 Acute exacerbation of chronic obstructive pulmonary disease (COPD) J44.1 CAD (coronary artery disease) I25.10 Ischemic cardiomyopathy with implantable cardioverter-defibrillator (ICD) I25.5; Z95.810 Laryngeal squamous cell carcinoma C32.9 Hypomagnesemia E83.42
[2021-10-28] MEDS ORDERED: ACETAMINOPHEN 325 MG TAB PO PRN (01:21)
[2021-10-28] MEDS ORDERED: ONDANSETRON INJ 2 MG/ML 2 ML VIAL IV PRN (01:21)
[2021-10-28] MEDS ORDERED: GABAPENTIN 600 MG TAB PO STA (02:14)
[2021-10-28] MEDS ORDERED: ALBUT/IPRATROP 3MG/0.5MG NEB 3 ML VIAL NEB STA (02:14)
[2021-10-28] MEDS: MAGNESIUM SULFATE / D5W 1 GM/100 ML BAG IV SCH ×2 (02:23→04:03)
[2021-10-28] MEDS ORDERED: NALOXONE HCL 0.4 MG/1 ML VIAL/CARP ONE (03:09)
[2021-10-28] MEDS ORDERED: RACEPINEPHRINE 2.25% NEBU SOLN 0.5 ML VIAL ONE (03:19)
[2021-10-28] MEDS: ALBUT/IPRATROP 3MG/0.5MG NEB 3 ML VIAL NEB SCH ×4 (06:58→19:22)
--- NOTE | 2021-10-28 07:02 | CT Scan Report ---
CT head/brain wo con CLINICAL HISTORY: 66 years-old Male with AMS. Acutely altered mental status TECHNIQUE: Multiple axial CT images of the head were obtained without contrast. A dose lowering tech nique was utilized adhering to the principles of ALARA. CT DOSE: 1228.53 mGy.cm COMPARISON: PET CT 07/03/2019 FINDINGS: Motion degraded exam. The study was then repeated which was also motion degraded. No acute intracrani al hemorrhage, midline shift, intracranial mass, hydrocephalus, territorial ischemia or abnormal extr a-axial collection. Age-related involutional changes. Mild white matter hypodensities are suggestive of probable chronic microvascular ischemic disease. The calvarium is intact. Trace right mastoid effusion. Left mastoid air cells and paranasal sinuses are clear. Unremarkable soft tissues and orbits. IMPRESSION: No acute intracranial abnormality. ACT 112: Negative or not required by law. The above report was generated using voice recognition software. It may contain grammatical, syntax o r spelling errors. Electronically signed by: Jasen Ingram M.D. 10/28/2021 6:59 AM
--- NOTE | 2021-10-28 07:14 | XRay Report ---
XR chest 1V portable CLINICAL HISTORY: SOB. COMPARISON STUDY: 09/22/2021 TECHNIQUE: 1 view of the chest FINDINGS: Single frontal view of the chest demonstrates the heart to be mildly enlarged status post previous ca rdiothoracic surgery and pacer placement. The lungs are clear of alveolar opacities. There is minimal chronic blunting of the costophrenic angles bilaterally with no gross pleural effusions. There is no evidence for vascular congestion. There is no acute osseous pathology. IMPRESSION: 1. No acute cardiopulmonary disease. ACT 112: Negative or not required by law. Electronically signed by: Ayaan Quinonez M.D. 10/28/2021 7:13 AM
[2021-10-28] MEDS: methylPREDNISolone 40 MG in SYRINGE 0 ML IV SCH ×3 (07:47→23:45)
[2021-10-28] MEDS ORDERED: GABAPENTIN 600 MG TAB PO SCH (09:00)
[2021-10-28] MEDS ORDERED: LORazepam 1 MG TAB PO PRN (09:02)
[2021-10-28] MEDS: SODIUM CHLORIDE 1 GM TABLET PO SCH ×3 (09:10→20:26)
[2021-10-28] MEDS: ASPIRIN 81 MG ECTAB PO SCH ×2 (09:10→20:25)
[2021-10-28] MEDS: METOPROLOL SUCC 50MG EXT REL TAB PO SCH (09:11)
[2021-10-28] MEDS: ENOXAPARIN INJ 30 MG/0.3 ML SYR SQ SCH (09:12)
[2021-10-28 10:29] LABS: BUN Creatinine Ratio 16.1 (10-20); Calcium 9.3 mg/dl (8.5-10.1); Creatinine Clr Calc Pharmacy 75.5 ml/min; Est GFR (African American) 104.2 ml/min; Est GFR (Non-African American) 89.9 ml/min; Potassium 4.5 mmol/L (3.5-5.1)
[2021-10-28 11:58] LABS: iSTAT Arterial Blood Gas pCO2 53 mmHg (35-46); iSTAT Arterial Blood Gas pH 7.36 (7.35-7.45); iSTAT Arterial Blood Gas pO2 83 mmHg (80-95); iSTAT Hematocrit 35 % (42-52); iSTAT Hemoglobin 11.9 g/dl (14.0-18.0); iSTAT Potassium 4.9 mmol/L (3.3-5.0)
[2021-10-28 11:59] LABS: iSTAT Arterial Blood Gas HCO3 30 meg/L (19-24); iSTAT Carbon Dioxide 32 mmol/L (24-31)
[2021-10-28 12:02] LABS: iSTAT Sodium 113 mmol/L (135-144)
[2021-10-28] MEDS: GABAPENTIN 600 MG TAB PO SCH ×3 (13:20→20:25)
--- NOTE | 2021-10-28 13:28 | Medical Student Progress Note ---
Date of Service October 28, 2021 Assessment & Plan (1) Acute hyponatremia: Plan: 66 yo male h/o ischemic cardiomyopathy rEF 25%, chronic hyponatremia with recent admission, CAD, SCC of larynx, smoker 3-4 per day, alcohol 3 drinks per day (last night; liquor > beer) presents to ED last night for acute COPD exacerbation and acute hyponatremia. COPD exacerbation and hyponatremia possibly caused by SIADH, polydipsia, or HF. Acute/chronic hyponatremia- Sodium 114 upon admission; now 117 Serum osm 243 urine osm 193 BMP Q6 hrs Most recent hospitalization from 09/22-09/25/2021 again with sodium of 115 and was discharged on sodium of 129. Patient reports he ran out of his sodium chloride tablets and lasix Restart sodium chloride 1g p.o. 3 times daily, with first dose now Consideration to use of tolvaptan Fluid restrict to 1.5 L daily TSH to rule out hypothyroidism Follows with nephrology Dr. Phillips as an outpatient (2) Acute exacerbation of chronic obstructive pulmonary disease (COPD): Plan: Given Solu-Medrol 125 mg IV in the ED Solu-Medrol 40 mg IV every 8 hours Duonebs every 4 hours while awake and every 2 hours when necessary azithromycin 500 mg 3 days 1L/min NC; decrease as tolerated; spo2 goal 88 to 92% (3) CAD (coronary artery disease): Plan: CAD/ischemic cardiomyopathy with ICD/hypertension- Continue metoprolol succinate and aspirin (4) Ischemic cardiomyopathy with implantable cardioverter-defibrillator (ICD): Plan: rEF @ 25% (5) Laryngeal squamous cell carcinoma: Plan: follows oncology and ENT (6) Hypomagnesemia: Plan: Magnesium 1.5 on admission Give mag sulfate 2 g IV and then repeat labs AM ppx another 2g IV (7) Alcohol withdrawal: Plan: not currently in withdrawal AWSS: 6-10+ Lorazepam 1-3 mg PRN Plan: code status full dvt ppx: lovenox dispo: med/surg with tele FEN/GI: fluid restriction 1500 mL, regular diet Admission and Anticipated Discharge Date Admission Date: October 28, 2021 Supervising Attestation I personally examined the patient and verified all cummins points of history and exam, discussed case, and agree with decision making with A Patricio MS2 feels fine. wonders about going home. breathing feeling better vitals noted nad heent nc at mmm breathing unlabored no accessory muscles good effort skin no rashes no pallor or icterus neuro no focal deficits hyponatremia - can be elements of CHF, SiADH, PO intake issues - probably this time SiADH and low solute/dilutional more than CHF. fluid restrict, salt tabs, follow closely. slowly correct COPD exacerbation - improving. continue steroids and zithromax. pulmonary toilet. otherwise as above otherwise as above Subjective Pt feeling better, and is not SOB anymore. Physical Exam Physical Exam: GA: no acute distress Heart: rrr no mrg Lungs: breathing comfortably on 2L wo increased work of breathing; bilateral sonorous wheezing Ext: no edema Neuro: no tremor appreciated; no altered mentation Psych: affect: irritable; full behavior: cooperative thought content: not being in the hospital thought process: linear insight: medium to poor judgement: fair - chooses to have treatment despite not wanting to be here Results & Data ([facility]) Vital Signs (Past 12 Hours) Vital Signs Temp Pulse Pulse Resp BP BP Pulse Ox 10/28/21 13:00 78 14 10/28/21 12:10 126/76 10/28/21 11:25 77 18 98 10/28/21 11:00 78 14 97 10/28/21 10:00 73 16 137/72 97 10/28/21 09:00 85 11 L 99 10/28/21 08:31 96 10/28/21 08:15 86 L 10/28/21 08:00 82 16 155/93 H 92 10/28/21 07:53 37 C 75 16 138/74 98 10/28/21 07:00 95 H 20 100 10/28/21 06:00 71 14 138/74 100 10/28/21 05:00 74 17 100 10/28/21 04:00 81 22 140/76 98 10/28/21 03:00 79 17 150/97 H 97 10/28/21 01:52 36.6 C 162/90 H 10/28/21 01:50 83 18 97 10/28/21 01:47 84 19 92 10/28/21 01:40 83 19 95 10/28/21 01:31 83 24 94 10/28/21 01:30 88 17 95
[2021-10-28 16:09] LABS: BUN Creatinine Ratio 16.9 (10-20); Calcium 8.9 mg/dl (8.5-10.1); Creatinine Clr Calc Pharmacy 73.8 ml/min; Est GFR (African American) 103.3 ml/min; Est GFR (Non-African American) 89.1 ml/min; Potassium 4.2 mmol/L (3.5-5.1)
[2021-10-28] MEDS: AZITHROMYCIN 250 MG TAB PO SCH (17:55)
--- NOTE | 2021-10-28 18:16 | Billing Data ---
Date of Service October 28, 2021 Coding Level of Care Code 08272 Subseq Hosp Care Lvl 3
[2021-10-28 21:23] LABS: Calcium 8.7 mg/dl (8.5-10.1); Est GFR (African American) 102.8 ml/min; Est GFR (Non-African American) 88.7 ml/min; Potassium 4.1 mmol/L (3.5-5.1)
[2021-10-29 03:59] LABS: Hematocrit (blood only) 30.4 % (42-52); Mean Corpuscular Hemoglobin 32.7 pg (25-34); Mean Corpuscular Hgb Conc 36.2 g/dL (32-36); Mean Corpuscular Volume 90.5 fL (80-100); RDW Coefficient of Variation 13.3 % (11.5-14.5); RDW Standard Deviation 43.9 fL (36.4-46.3); Red Blood Count 3.36 M/uL (4.7-6.1); White Blood Count 8.15 K/uL (4.8-10.8)
[2021-10-29 04:05] LABS: Mean Platelet Volume 9.8 fL (7.4-10.4); Platelet Count 85 K/uL (130-400)
[2021-10-29 04:14] LABS: Albumin Level 3.5 gm/dl (3.4-5.0); BUN Creatinine Ratio 19.3 (10-20); Creatinine Clr Calc Pharmacy 74.6 ml/min; Est GFR (African American) 103.7 ml/min; Est GFR (Non-African American) 89.5 ml/min; Magnesium 1.8 mg/dl (1.7-2.4); Potassium 4.7 mmol/L (3.5-5.1)
--- NOTE | 2021-10-29 05:58 | Electrocardiogram Report ---
Test Reason : Blood Pressure : / mmHG Vent. Rate : 078 BPM Atrial Rate : 078 BPM P-R Int : 216 ms QRS Dur : 134 ms QT Int : 408 ms P-R-T Axes : 047 071 202 degrees QTc Int : 465 ms Poor data quality, interpretation may be adversely affected Sinus rhythm with 1st degree A-V block Non-specific intra-ventricular conduction block Possible Inferior infarct , age undetermined T wave abnormality, consider lateral ischemia Abnormal ECG When compared with ECG of 22-SEP-2021 20:35, [place] interval has increased Confirmed by Rico Troy ([id number]) on 10/29/2021 5:58:46 AM Referred By: REFERRED SELF Confirmed By:Rico Troy
[2021-10-29] MEDS: ALBUT/IPRATROP 3MG/0.5MG NEB 3 ML VIAL NEB SCH ×3 (07:18→15:26)
[2021-10-29] MEDS: ENOXAPARIN INJ 30 MG/0.3 ML SYR SQ SCH (07:55)
[2021-10-29] MEDS: methylPREDNISolone 40 MG in SYRINGE 0 ML IV SCH ×2 (07:55→15:49)
[2021-10-29] MEDS: ASPIRIN 81 MG ECTAB PO SCH (07:55)
[2021-10-29] MEDS: AZITHROMYCIN 250 MG TAB PO SCH (07:55)
[2021-10-29] MEDS: SODIUM CHLORIDE 1 GM TABLET PO SCH ×2 (07:56→13:24)
[2021-10-29] MEDS: METOPROLOL SUCC 50MG EXT REL TAB PO SCH (07:56)
[2021-10-29] MEDS: GABAPENTIN 600 MG TAB PO SCH ×2 (07:56→13:24)
[2021-10-29 12:03] LABS: BUN Creatinine Ratio 17.6 (10-20); Calcium 9.2 mg/dl (8.5-10.1); Creatinine Clr Calc Pharmacy 70.4 ml/min; Est GFR (African American) 101.4 ml/min; Est GFR (Non-African American) 87.5 ml/min; Potassium 4.9 mmol/L (3.5-5.1)
--- NOTE | 2021-10-29 14:42 | Medical Student Progress Note ---
Date of Service October 29, 2021 Assessment & Plan (1) Acute hyponatremia: Plan: 66 yo male h/o ischemic cardiomyopathy rEF 25%, chronic hyponatremia with recent admission, CAD, SCC of larynx, smoker 3-4 per day was admitted for acute COPD exacerbation and acute hyponatremia. Acute/chronic hyponatremia- SIADH is a possible cause; it could be a paraneoplastic syndrome given his history of squamous cell carcinoma of the larnyx and life long smoking history. -Chest CT with IV contract -Sodium 114 upon admission; now 120 -Serum osm 243 -urine osm 193 -BMP Q6 hrs; discontinue -Most recent hospitalization from 09/22-09/25/2021 again with sodium of 115 and was discharged on sodium of 129. -Patient reports he ran out of his sodium chloride tablets and lasix Restart sodium chloride 1g p.o. 3 times daily as outpatient Fluid restrict to 1.5 L daily (30-40 oz) TSH to rule out hypothyroidism; normal range Follows with nephrology Dr. Phillips as an outpatient (2) Acute exacerbation of chronic obstructive pulmonary disease (COPD): Plan: Given Solu-Medrol 125 mg IV in the ED Solu-Medrol 40 mg IV every 8 hours Duonebs every 4 hours while awake and every 2 hours when necessary azithromycin 500 mg 3 days 1L/min NC; decrease as tolerated; spo2 goal 88 to 92% (3) CAD (coronary artery disease): Plan: CAD/ischemic cardiomyopathy with ICD/hypertension- Continue metoprolol succinate and aspirin (4) Ischemic cardiomyopathy with implantable cardioverter-defibrillator (ICD): Plan: rEF @ 25% (5) Laryngeal squamous cell carcinoma: Plan: follows oncology and ENT (6) Hypomagnesemia: Plan: Magnesium 1.5 on admission Give mag sulfate 2 g IV and then repeat labs AM ppx another 2g IV (7) Alcohol withdrawal: Plan: not currently in withdrawal AWSS: 6-10+ Lorazepam 1-3 mg PRN Plan: code status full dvt ppx: lovenox dispo: med/surg with tele FEN/GI: fluid restriction 1500 mL, regular diet Admission and Anticipated Discharge Date Admission Date: October 28, 2021 Results & Data ([facility]) Vital Signs (Past 12 Hours) Vital Signs Temp Pulse Pulse Pulse Pulse Pulse Pulse 10/29/21 11:00 37.0 C 82 10/29/21 10:40 74 10/29/21 10:37 95 H 108 H 88 90 10/29/21 07:28 79 10/29/21 07:18 71 10/29/21 07:00 36.6 C 90 10/29/21 03:30 36.6 C 79 Resp Resp Resp Resp Resp BP Pulse Ox 10/29/21 11:00 18 113/71 93 10/29/21 10:40 18 93 10/29/21 10:37 18 22 16 18 10/29/21 07:28 10/29/21 07:18 18 97 10/29/21 07:00 20 112/60 100 10/29/21 03:30 20 129/69 98 Pulse Ox Pulse Ox Pulse Ox Pulse Ox 10/29/21 11:00 10/29/21 10:40 10/29/21 10:37 92 87 L 94 94 10/29/21 07:28 10/29/21 07:18 10/29/21 07:00 10/29/21 03:30
--- NOTE | 2021-10-29 16:07 | Discharge Summary ---
Date of Service October 29, 2021 Admission HPI Per Admitting Provider The patient is a 66-year-old male with a past medical history including chronic hyponatremia, COPD, nonsustained V. tach, ischemic cardiomyopathy, HFrEF, CAD, depression, ischemic cardiomyopathy with implantable ICD, AAA, and laryngeal squamous cell carcinoma. He presents to the emergency department with worsening shortness of breath over the past couple days. He reports having had nebulizer in the past but was not of much help, that most of his breathing issues are due to narrowing of his larynx due to his history of cancer. He reports running out of his prescription for salt tablets. Admission Exam Per Admitting Provider The patient is awake, alert and oriented 3, normocephalic and atraumatic, lying in bed and in no acute distress. HEENT--PERRL, EOMI, mucous membranes and oropharynx dry. Neck--supple. No JVD. No bruits. Thyroid normal, trachea midline, no adenopathy. Heart--normal S1 and S2. No murmurs, rubs or gallops. Lungs--coarse breath sounds bilaterally, no respiratory distress, no accessory muscle use. Abdomen--normal bowel sounds and soft. Nontender. Nondistended, no hernias or masses, no organomegaly. Extremities--no cyanosis or clubbing. No edema. Dermatologic--normal skin turgor, normal color, no abnormal lymph nodes, no rash. Neurologic--cranial nerves II through XII grossly intact. Rheumatologic--normal range of motion. Psychiatric--normal affect. Principal Diagnosis acute copd exacerbation Discharge Exam GA: no acute distress Heart: rrr no mrg Lungs: breathing comfortably; b/l scattered rhonchi Ext: no edema Neuro: no tremor appreciated; no altered mentation Psych: affect: euthymic behavior: cooperative thought content: not being in the hospital thought process: linear insight: medium to poor judgement: fair Discharge Data Allergies Allergy/AdvReac Type Severity Reaction Status Date / Time No Known Allergies Allergy Verified 10/27/21 23:53 Consultations 10/27/21 23:28 ED Decision to Admit Stat Ordered Studies 10/28/21 03:16 CT head/brain wo con Urgent Hospital Course (1) Acute hyponatremia: 66 yo male h/o ischemic cardiomyopathy rEF 25%, chronic hyponatremia with recent admission, CAD, SCC of larynx, smoker 3-4 per day was admitted for acute COPD exacerbation and acute hyponatremia. Acute/chronic hyponatremia- SIADH is a possible cause; it could be a paraneoplastic syndrome given his history of squamous cell carcinoma of the larnyx and life long smoking history. -Sodium 114 upon admission; now 120 -Most recent hospitalization from 09/22-09/25/2021 again with sodium of 115 and was discharged on sodium of 129. -Patient reports he ran out of his sodium chloride tablets -sodium chloride 1g p.o. 3 times daily as outpatient -Fluid restrict to daily (30-40 oz) -Recommend Chest CT with IV contrast outpatient -Follows with nephrology Dr. Phillips as an outpatient (2) Acute exacerbation of chronic obstructive pulmonary disease (COPD): -Given Solu-Medrol 125 mg IV in the ED -Solu-Medrol 40 mg IV every 8 hours; discontinued -Duonebs every 4 hours while awake and every 2 hours when necessary; discontinued -azithromycin 500 mg 3 days; continued one day after discharge -outpatient: daily tiotropium; albuterol PRN; prednisone 40 mg x3 days to complete 5 day burst -SPO2 93% on RM air; Two Step: desaturated to 87% on exertion; recommend oxygen during exercise (walking) but patient declined (3) CAD (coronary artery disease): CAD/ischemic cardiomyopathy with ICD/hypertension- Continue metoprolol succinate and aspirin (4) Ischemic cardiomyopathy with implantable cardioverter-defibrillator (ICD): rEF @ 25% asymptomatic while here; euvolemic (5) Laryngeal squamous cell carcinoma: follows oncology and ENT (6) Hypomagnesemia: Magnesium 1.5 on admission; now 1.8 resolved (7) Alcohol withdrawal: not currently in withdrawal AWSS: 0 Lorazepam 1-3 mg PRN; discontinue Total Time Total Time Spent Total Time Spent (In Minutes): <30 Discharge Plan Discharge Items Patient Disposition: Home - Self-Care Reason For Visit: CONFUSION, HYPONATREMIA, COPD EX Discharge Diagnosis: COPD exacerbation Activity: Per Instructions section Non-emergency contact: Primary Care Provider Call non-emergency contact if: your symptoms worsen Follow-up/Referrals: Riri Mosqueda MD [Primary Care Provider] - Diet: Regular Addtl Attending Provider Instructions: --- Trouble breathing You came to the hospital for trouble breathing. You have a history of COPD (chronic obstructive pulmonary disease) and we think that this trouble breathing was worsening of this. You also brought up that you noticed that the symptoms were triggered by the heat and you were concerned with narrowing of your larynx. You brought up that there was a possibility that you may need a procedure to open this airway with your surgeon (butt welder Dr. Ferrell). Please follow up with your butt welder to discuss your symptoms. Regarding to COPD you should continue to use your Albuterol inhaler as needed and finish the course of azithromycin (antibiotic to decrease inflammation[1 more day]) along with steroids (prednisone [3 days]). If you develop worsening of your trouble breathing you should call or come back for further evaluation. If you have a home pulse oximetry (the machine that clips to your finger and measures your oxygen level) you can check this when you are short of breath. If it is below 85 call to discuss with your PCP or go to the ER. We prescribed a new medication to take every day to help with your breathing over the residential called Tiotropium. --- Low sodium level (low salt) You were found to have a low sodium level in your blood. You normally have a lower sodium level but this was lower than your normal level. There are many causes for low sodium including heart failure and SIADH (abnormal levels of a hormone involved in fluid & salt regulation that we discussed). SIADH can have many causes including medications and potentially cancer. We want you to get a CT scan of your chest to further evaluate for any potential cancer. You will need to follow up with your primary care provider to continue to look into the cause for you low sodium and to treat it. You should continue to take the sodium tablets three times a day and have your sodium level checked weekly until you are back to your normal level. We want to limit your fluid to 30 - 40 oz. a day. Follow up with: PCP in one week [employer] Pending Studies at Discharge: No Stand-Alone Forms: [employer], Smoking Cessation Medications and DC Order Prescriptions: New tiotropium bromide 18 mcg capsule, w/inhalation device 1 cap inhalation DAILY Qty: 1 RF: 0 sodium chloride 1 gram tablet 1,000 mg PO TID 30 Days Qty: 90 RF: 0 prednisone 20 mg tablet 40 mg PO DAILY 3 Days Qty: 6 RF: 0 azithromycin 500 mg tablet 500 mg PO DAILY Qty: 1 RF: 0 Continued metoprolol succinate 50 mg tablet extended release 24 hr 50 mg PO DAILY Qty: 30 RF: 5 aspirin [Adult Aspirin Regimen] 81 mg tablet,delayed release (DR/EC) 81 mg PO BID RF: 0 sildenafil [Viagra] 100 mg tablet 100 mg PO DAILY PRN (Reason: sexual activity) Qty: 14 RF: 4 gabapentin 600 mg tablet 600 mg PO QID RF: 0 Discharge Orders: Discharge Order (Routine); Ordered 10/29/21 Ordered By: Rashid Bailey Admission Data Admit Date/Time: 10/28/21 00:48 Attending Provider: Henrry Miranda Admit Provider: Adrián Hylton Primary Care Provider: Riri Mosqueda Other Providers: Adrián Hylton Other Interventions: Discharge Summary Assessment (RN) Last Done: 10/29/21 15:53 Supervising Physician Co-Signing Physician Notes I personally examined the patient and verified all cummins points of history and exam, discussed case, and agree with decision making with A Casco MS2 feels fine. Wants to go home. Is much more willing to discuss plans/follow-up/follow-through today. vitals noted nad heent nc at mmm breathing unlabored no accessory muscles good effort skin no rashes no pallor or icterus neuro no focal deficits hyponatremia - can be elements of CHF, SiADH, PO intake issues - probably this time SiADH and low solute/dilutional more than CHF. Has improved with fluid restriction and salt tabs, I would prefer to keep him longer, but he is quite adamant about going home, and if his left AMA before. To that end, I feel that the risk-benefit is favorable to discharge him cautiously with careful instructions and follow-up, rather than severing rapport and having him leave AMA with no real follow-up only to be readmitted yet again. To that end, while I would very much like to see his sodium more in the mid to high 120s, given that he is going to leave anyway I felt it better to have him discharged under controlled conditions. Salt tabs 1 g 3 times daily, fluid restrict to about 30 to 40 ounces a day, weekly basic metabolic panel, close PCP follow-up. COPD exacerbation - improving. He does desaturate to 87% on room air with ambulation, and although home oxygen was set up, and a portable concentrator was even here in the hospital to be given to him, he declined oxygen. Much like leaving with the sodium lower than I am comfortable with, given that he was leaving anyway, I tried a harm reduction approach to keep him safe from his own decisions, and discussed getting a pulse ox and how to follow-up. We discussed 88 or higher would be reasonable as long as he does not have symptoms, anything lower than 88 should have immediate rest, and anything lower than 88 that does not resolve with rest he should be seen immediately. Also discussed if he is seeing readings lower than 88 persistently with ambulation, that would confirm to him that he really should have the home oxygen that we feel like he should have anyway. Finishing out treatment of the COPD exacerbation will be with a burst of prednisone, finished course of Zithromax. We will start him on inhalers. outpt f/u. otherwise as above
--- NOTE | 2021-10-29 17:33 | Billing Data ---
Date of Service October 29, 2021 Coding Level of Care Code D/C DAY MANAGEMENT <30 MINS
== END 2021-10-29 16:06 | disposition home or self-care (01) | DRG 191 ==
LOC: ED 21:31 → EDINP 10-28 00:48 → SUATTDRO 10-28 00:48 → 2N 10-28 01:14

== ENCOUNTER 2021-11-14 04:00 | Inpatient (IN) ==
[2021-11-14] MEDS ORDERED: FUROSEMIDE 40 MG/4 ML VIAL IV ONE (04:15)
[2021-11-14] MEDS ORDERED: methylPREDNISolone 125 MG/2 ML VIAL IV STA (04:15)
[2021-11-14] MEDS ORDERED: dilTIAZem HCl 5 MG/ML 5 ML VIAL IV STA ×2 (04:18→23:10)
--- NOTE | 2021-11-14 04:24 | Emergency Department Note ---
History of Present Illness General Chief complaint: Respiratory Problems Stated complaint: HARD TO BREATHE Time Seen by Provider: 11/14/21 04:09 History of Present Illness 66-year-old male presents emergency department with onset of shortness of breath that started earlier this evening. Patient of note was in our emergency department 3 or 4 days ago and states he was given Lasix, and he states that his leg edema has decreased and he felt better. Patient states that he gets short of breath in the evenings. Patient states he is a smoker. The patient denies any chest tightness or chest pain currently. Patient denies cough cold congestion symptoms. There are no other mitigating or alleviating factors. Home Medications Medication Instructions Recorded Confirmed Type aspirin 81 mg tablet,delayed 81 mg PO BID 06/04/19 11/10/21 History release (Adult Aspirin Regimen) gabapentin 600 mg tablet 600 mg PO DAILY 09/22/21 11/10/21 History sildenafil 100 mg tablet (Viagra) 100 mg PO DAILY PRN #14 tab 09/29/21 11/10/21 Rx metoprolol succinate 50 mg 50 mg PO DAILY #30 tab 09/30/21 11/10/21 Rx tablet,extended release 24 hr albuterol sulfate 90 mcg/actuation 1 inh INHALATION Q6H PRN #8.5 g 10/29/21 11/10/21 Rx aerosol inhaler sodium chloride 1 gram tablet 1,000 mg PO TID 30 Days #90 tab 10/29/21 11/10/21 Rx tiotropium bromide 18 mcg capsule 1 cap INHALATION DAILY #1 inh 10/29/21 11/10/21 Rx with inhalation device prednisone 20 mg tablet See Rx Instructions PO .COMPLEX 11/05/21 11/10/21 Rx #30 tab furosemide 20 mg tablet (Lasix) 20 mg PO DAILY #10 tab 11/10/21 Rx magnesium oxide 400 mg (241.3 mg 400 mg PO DAILY #7 tab 11/10/21 Rx magnesium) tablet (MagOx) Allergies Allergy/AdvReac Type Severity Reaction Status Date / Time No Known Allergies Allergy Verified 11/10/21 16:21 Past Med/Surg History Medical History Alcohol withdrawal Anemia Chronic- stable COPD (chronic obstructive pulmonary disease) Ischemic cardiomyopathy with implantable cardioverter-defibrillator (ICD) 05/2019 ECHO shows EF of 20-25% MEDTRONIC DEFIB IMPLANTED AFTER CABG X 3 in 2017 Lesion of vocal fold PATIENT STATES DR DHILLON ATTEMPTED TO PASS SCOPE AND UNABLE. HE NEEDS THIS PROCEDURE (DIRECT MICROLAYNGOSCOPY WITH BIOPSIES)- CONCERNS FOR LARYNGEAL CANCER 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- CARDIAC ARREST WHILE DRIVING - HE WAS DEFIBRILLATED AT THE SCENE AND TAKEN TO [facility] AND THEN [facility] TO [facility] Peripheral vascular disease HAS STENT IN RIGHT LEG Surgical History History of cardiac cath HAD CATH AROUND 2006 WITH STENT; THEN IN 11/2016 HAD CATH WITH CABG X3 FOLLOW WITH [facility] History of coronary artery bypass graft 2017- CARABALLO to LAD, SVG to OM, SVG to PDA History of surgery on extremity RIGHT LEG AND HAD STENT PLACED 2016 History of throat surgery direct microlaryngoscopy with biopsies-06/25/2019-Dr. Dhillon Family History Mother Diabetes Brother Hypertension Myocardial infarction Denies family history of Ovarian cancer Prostate cancer Breast cancer Colorectal cancer Social History Smoking Status: Current every day smoker Tobacco Type: Cigarettes Cigarettes Per Day: 3-4; Second Hand Exposure: No; Hx Alcohol Use: Yes Alcohol type: beer and hard liquor Alcohol Intake Frequency Comment: 2-3 drinks a day Hx Substance Use: No Preferred Language: Frisian Communication Ability: Effective Visual Impairment: No Limitations Athletic Scout Required: No Beliefs That Will Affect Care: None marital status: Single Current Living Situation: Alone current occupational status: retired Feels Safe at Home: Yes Childhood Exposure to Second-Hand Smoke: Yes caffeine: Yes Dental Care, Regularly: No Physical Activity Frequency: Daily Seatbelt Use: never Sunscreen Use: No Assistive Devices: Denture - Upper and Glasses Review of Systems A total of 10 systems reviewed and were otherwise negative Constitutional: no fever Respiratory: + dyspnea; no cough Cardiovascular: no chest pain Physical Exam Vital Signs Vital Signs - 24 hr 11/14/21 04:06 11/14/21 04:17 11/14/21 04:32 Temperature 36.1 C L Temperature Source Temporal Artery Scan Pulse Rate 114 H Pulse Rate [Apical] 114 H Pulse Rhythm [Apical] Irregular Respiratory Rate 24 20 Respiratory Depth Shallow Normal Blood Pressure 128/79 Blood Pressure [Right Arm] Blood Pressure Mean 95 Blood Pressure Mean [Right Arm] Pulse Oximetry 100 98 96 Oxygen Delivery Method Room Air Room Air Room Air Oxygen Flow Rate Sepsis Recent Fever Within 48 Hours No Sepsis New/Unexplained Change in Mental Status No Sepsis Action Taken by Nursing No Action Required 11/14/21 04:33 11/14/21 04:46 11/14/21 05:01 Temperature Temperature Source Pulse Rate Pulse Rate [Apical] 87 76 84 Pulse Rhythm [Apical] Irregular Irregular Irregular Respiratory Rate 17 16 16 Respiratory Depth Normal Normal Normal Blood Pressure Blood Pressure [Right Arm] 120/91 118/78 121/80 Blood Pressure Mean Blood Pressure Mean [Right Arm] 100 91 93 Pulse Oximetry 97 96 93 Oxygen Delivery Method Room Air Room Air Room Air Oxygen Flow Rate Sepsis Recent Fever Within 48 Hours Sepsis New/Unexplained Change in Mental Status Sepsis Action Taken by Nursing 11/14/21 05:23 11/14/21 06:03 Temperature Temperature Source Pulse Rate Pulse Rate [Apical] 86 87 Pulse Rhythm [Apical] Irregular Respiratory Rate 18 17 Respiratory Depth Normal Blood Pressure Blood Pressure [Right Arm] 136/81 137/88 Blood Pressure Mean Blood Pressure Mean [Right Arm] 99 104 Pulse Oximetry 98 100 Oxygen Delivery Method Room Air Nasal Cannula Oxygen Flow Rate 3 Sepsis Recent Fever Within 48 Hours Sepsis New/Unexplained Change in Mental Status Sepsis Action Taken by Nursing VITAL SIGNS - Vital signs and nursing notes were reviewed. GENERAL -No acute distress. Communicates well with provider and answers questions appropriately. SKIN - Without rashes. HEAD - NC/AT. EYES - PERRL with EOMI bilaterally. Sclera anicteric. Palpebral conjunctiva pink and moist with no injection noted. EARS - No deformities of external structures noted on gross examination bilaterally. NOSE - Midline and without cyanosis. No epistaxis or purulent drainage noted. Septum midline without deviation or septal hematoma noted. MOUTH/OROPHARYNX - Without perioral cyanosis. Buccal mucosa pink and moist NECK - Neck with FROM. LUNGS - Chest wall symmetric without accessory muscle use, intercostals retractions, or central cyanosis. Normal vesicular breath sounds CTA B/L. No wheezes, rales, or rhonchi appreciated. CARDIAC -irregularly irregular tachycardic with S1/S2. No murmur, rubs, or gallops appreciated. ABDOMEN - Abdominal contour soft without pulsations or visible masses. BS normoactive all four quadrants. No tenderness, palpable masses, hepatosplenomega ly, or ascites noted. EXTREMITIES - No clubbing or peripheral cyanosis. Bilateral lower extremity p itting edema;+5/5 strength noted in UE/LE bilaterally. NEUROLOGIC - Cranial nerves II through XII grossly intact. PSYCH - A&Ox3 and cooperates fully with examiner. Pt is very pleasant and interacts well with examiner. Course Reevaluation(s) Reevaluation #1: Patient on reexamination is resting in no distress. Patient's heart rate has decreased after 1 dose of IV Cardizem. Patient has taken aspirin prior to arrival. Patient states some improvement after IV Lasix. I discussed the evaluation with the patient at bedside regarding his current condition. Time: 05:46 Consultations Consultation #1: [facility] Hospitalist for admit Time: 06:15 Administered Medications Discontinued Medications Diltiazem HCl (Diltiazem Hcl 5 Mg/Ml 5 Ml Vial) 20 mg IV NOW STA Stop: 11/14/21 04:19 Last Admin: 11/14/21 04:28 Dose: 20 mg Documented by: [id number] Cosigned by: [id number] Furosemide (Furosemide 40 Mg/4 Ml Vial) 40 mg IV ONE ONE Stop: 11/14/21 04:16 Last Admin: 11/14/21 04:23 Dose: 40 mg Documented by: [id number] Methylprednisolone (Methylprednisolone 125 Mg/2 Ml Vial) 125 mg IV NOW STA Stop: 11/14/21 04:16 Last Admin: 11/14/21 04:23 Dose: 125 mg Documented by: [id number] Critical Care Time Critical Care Time: Yes Total Critical Care Time: 35 I have personally spent greater than 35 minutes of critical care time in the direct management of this patient. This includes bedside care, interpretation of diagnostic studies, and testing, discussion with consultants, patient, and family members, and other required patient management activities. These minutes are in excess of all separately billable procedures. Medical Decision Making Medical Records Attestation: I reviewed the patient's medical records. Home Medications Current Medication List: was personally reviewed by me Laboratory Data Attestation: I reviewed the patient's lab results. Result diagrams: 11/14/21 04:23 11/14/21 04:23 Lab Results 11/14/21 11/14/2111/14/22 Range/Units 04:23 04:23 04:23 WBC 10.53 (4.8-10.8) K/uL RBC 4.00 L (4.7-6.1) M/uL Hgb 12.8 L (14.0-18.0) g/dL Hct 37.6 L (42-52) % MCV 94.0 (80-100) fL MCH 32.0 (25-34) pg MCHC 34.0 (32-36) g/dL RDW Std Deviation 54.7 H (36.4-46.3) fL RDW Coeff of Erik 16.1 H (11.5-14.5) % Plt Count 123 L (130-400) K/uL MPV 10.9 H (7.4-10.4) fL Immature Gran % (Auto) 0.4 % Neut % (Auto) 88.2 % Lymph % (Auto) 6.2 % [place] % (Auto) 5.2 % Eos % (Auto) 0.0 % Baso % (Auto) 0.0 % Neut # (Auto) 9.29 H (1.4-6.5) K/uL Lymph # (Auto) 0.65 L (1.2-3.4) K/uL [place] # (Auto) 0.55 (0.11-0.59) K/uL Eos # (Auto) 0.00 (0-0.5) K/uL Baso # (Auto) 0.00 (0-0.2) K/uL Immature Gran # (Auto) 0.04 H (0.00-0.02) K/uL PT (9.0-12.0) Seconds INR (0.9-1.1) APTT (21.0-31.0) Seconds PTT Ratio Sodium 126 L (136-145) mmol/L Potassium 4.4 (3.5-5.1) mmol/L Chloride 84 L (98-107) mmol/L Carbon Dioxide 34 H (21-32) mmol/L Anion Gap 8 (3-11) BUN 30 H (6-23) mg/dl Creatinine 1.23 (0.6-1.4) mg/dl Est Cr Clr Drug Dosing 54.1 ml/min Est GFR ( Amer) 70.5 ml/min Est GFR (Non-Af Amer) 60.8 ml/min BUN/Creatinine Ratio 24.4 H (10-20) Glucose 122 H (70-99(Fasting)) mg/dl Calcium 9.5 (8.5-10.1) mg/dl Magnesium 1.9 (1.7-2.4) mg/dl Total Bilirubin 1.3 H (0.2-1.0) mg/dl AST 23 (13-39) U/L ALT 20 (7-52) U/L Alkaline Phosphatase 78 (34-104) U/L Troponin I High Sens 83.2 H* D (0-20) pg/ml B-Natriuretic Peptide 3246 H (0-100) pg/ml Total Protein 6.7 (6.0-8.3) gm/dl Albumin 3.9 (3.4-5.0) gm/dl Globulin 2.8 (2.5-4.0) gm/dl Albumin/Globulin Ratio 1.4 (0.9-2) Urine Color Urine Appearance (Clear) Urine pH (4.5-7.5) Ur Specific [place] (1.000-1.030) Urine Protein (Negative) Urine Glucose (UA) (Negative) Urine Ketones (Negative) Urine Blood (Negative) Urine Nitrite (Negative) Urine Bilirubin (Negative) Urine Urobilinogen (Negative) Ur Leukocyte Esterase (Negative) 11/14/21 11/14/21 Range/Units 04:23 05:20 WBC (4.8-10.8) K/uL RBC (4.7-6.1) M/uL Hgb (14.0-18.0) g/dL Hct (42-52) % MCV (80-100) fL MCH (25-34) pg MCHC (32-36) g/dL RDW Std Deviation (36.4-46.3) fL RDW Coeff of Erik (11.5-14.5) % Plt Count (130-400) K/uL MPV (7.4-10.4) fL Immature Gran % (Auto) % Neut % (Auto) % Lymph % (Auto) % [place] % (Auto) % Eos % (Auto) % Baso % (Auto) % Neut # (Auto) (1.4-6.5) K/uL Lymph # (Auto) (1.2-3.4) K/uL [place] # (Auto) (0.11-0.59) K/uL Eos # (Auto) (0-0.5) K/uL Baso # (Auto) (0-0.2) K/uL Immature Gran # (Auto) (0.00-0.02) K/uL PT 11.6 (9.0-12.0) Seconds INR 1.1 (0.9-1.1) APTT 24.0 (21.0-31.0) Seconds PTT Ratio 0.9 Sodium (136-145) mmol/L Potassium (3.5-5.1) mmol/L Chloride (98-107) mmol/L Carbon Dioxide (21-32) mmol/L Anion Gap (3-11) BUN (6-23) mg/dl Creatinine (0.6-1.4) mg/dl Est Cr Clr Drug Dosing ml/min Est GFR ( Amer) ml/min Est GFR (Non-Af Amer) ml/min BUN/Creatinine Ratio (10-20) Glucose (70-99(Fasting)) mg/dl Calcium (8.5-10.1) mg/dl Magnesium (1.7-2.4) mg/dl Total Bilirubin (0.2-1.0) mg/dl AST (13-39) U/L ALT (7-52) U/L Alkaline Phosphatase (34-104) U/L Troponin I High Sens (0-20) pg/ml B-Natriuretic Peptide (0-100) pg/ml Total Protein (6.0-8.3) gm/dl Albumin (3.4-5.0) gm/dl Globulin (2.5-4.0) gm/dl Albumin/Globulin Ratio (0.9-2) Urine Color Yellow Urine Appearance Clear (Clear) Urine pH 6.0 (4.5-7.5) Ur Specific [place] 1.011 (1.000-1.030) Urine Protein Negative (Negative) Urine Glucose (UA) Negative (Negative) Urine Ketones Negative (Negative) Urine Blood Negative (Negative) Urine Nitrite Negative (Negative) Urine Bilirubin Negative (Negative) Urine Urobilinogen Negative (Negative) Ur Leukocyte Esterase Negative (Negative) Imaging Data Attestation: I personally reviewed and interpreted this imaging study as follows: My Impression: Chest x-ray interpreted by me cardiomegaly pacemaker present, no infiltrate ECG Data Attestation: I personally reviewed and interpreted this ECG as follows: Additional Comments: EKG interpreted by me rapid atrial fibrillation rate of [address]-T change ST segment depression in the precordium EKG #2 after 20 mg of IV Cardizem he is rate controlled atrial fibrillation nonspecific intraventricular block nonspecific T wave abnormality and inversions in the precordial leads normal axis no obvious ST segment elevation or depression MDM Narrative Medical Decision making differential diagnosis includes CHF, COPD, rapid atrial fibrillation, metabolic derangement; plan is to check cardiac evaluation Impression & Plan Atrial fibrillation with rapid ventricular response, Hyponatremia, Dyspnea, Congestive heart failure, Elevated troponin Discharge Plan Visit Data Chief Complaint: Respiratory Problems Stated Complaint: HARD TO BREATHE ED Provider: Shilo Reyes Discharge Problem: Atrial fibrillation with rapid ventricular response, Hyponatremia, Dyspnea, Congestive heart failure, Elevated troponin Patient Disposition: Being Evaluated by Hospitalist Forms Stand Alone Forms: My [facility] Prescriptions Prescriptions: No Action metoprolol succinate 50 mg tablet extended release 24 hr 50 mg PO DAILY Qty: 30 RF: 5 prednisone 20 mg tablet See Rx Instructions PO .COMPLEX Qty: 30 RF: 0 aspirin [Adult Aspirin Regimen] 81 mg tablet,delayed release (DR/EC) 81 mg PO BID RF: 0 sildenafil [Viagra] 100 mg tablet 100 mg PO DAILY PRN (Reason: sexual activity) Qty: 14 RF: 4 gabapentin 600 mg tablet 600 mg PO DAILY RF: 0 tiotropium bromide 18 mcg capsule, w/inhalation device 1 cap inhalation DAILY Qty: 1 RF: 0 sodium chloride 1 gram tablet 1,000 mg PO TID 30 Days Qty: 90 RF: 0 albuterol sulfate 90 mcg/actuation HFA aerosol inhaler 1 inh inhalation Q6H PRN (Reason: shortness of breath or wheezing) Qty: 8.5 RF: 0 furosemide [Lasix] 20 mg tablet 20 mg PO DAILY Qty: 10 RF: 1 magnesium oxide [MagOx] 400 mg (241.3 mg magnesium) tablet 400 mg PO DAILY Qty: 7 RF: 0 Referrals Referrals: Riri Mosqueda MD [Primary Care Provider] - Discharge Problem: Dyspnea Qualifiers: Dyspnea type: unspecified Qualified Code(s): R06.00 - Dyspnea, unspecified Congestive heart failure Qualifiers: Heart failure type: unspecified Heart failure chronicity: acute on chronic Qualified Code(s): I50.9 - Heart failure, unspecified
[2021-11-14 04:55] LABS: Hematocrit (blood only) 37.6 % (42-52); Hemoglobin 12.8 g/dL (14.0-18.0); INR 1.1 (0.9-1.1); Immature Granulocytes # (auto) 0.04 K/uL (0.00-0.02); Immature Granulocytes % (auto) 0.4 %; Lymphocytes # (auto) 0.65 K/uL (1.2-3.4); Lymphocytes % (auto) 6.2 %; Mean Platelet Volume 10.9 fL (7.4-10.4); Monocytes # (auto) 0.55 K/uL (0.11-0.59); Monocytes % (auto) 5.2 %; Neutrophils # (auto) 9.29 K/uL (1.4-6.5); Neutrophils % (auto) 88.2 %; Partial Thromboplastin Ratio 0.9; Platelet Count 123 K/uL (130-400); Prothrombin Time 11.6 Seconds (9.0-12.0); RDW Coefficient of Variation 16.1 % (11.5-14.5); RDW Standard Deviation 54.7 fL (36.4-46.3); White Blood Count 10.53 K/uL (4.8-10.8)
[2021-11-14 05:28] LABS: Albumin Globulin Ratio 1.4 (0.9-2); Albumin Level 3.9 gm/dl (3.4-5.0); BUN Creatinine Ratio 24.4 (10-20); Bilirubin,Total 1.3 mg/dl (0.2-1.0); Calcium 9.5 mg/dl (8.5-10.1); Creatinine Clr Calc Pharmacy 54.1 ml/min; Est GFR (African American) 70.5 ml/min; Est GFR (Non-African American) 60.8 ml/min; Globulin 2.8 gm/dl (2.5-4.0); Magnesium 1.9 mg/dl (1.7-2.4); Potassium 4.4 mmol/L (3.5-5.1); Total Protein 6.7 gm/dl (6.0-8.3)
[2021-11-14 05:37] LABS: Appearance Urine Clear (Clear); Bilirubin Urine Negative (Negative); Blood Urine Negative (Negative); Color Urine Yellow; Glucose Urine UA Negative (Negative); Ketones Urine Negative (Negative); Leukocyte Esterase Urine Negative (Negative); Nitrite Urine Negative (Negative); Protein Urine Negative (Negative); Specific Gravity Urine 1.011 (1.000-1.030); Urobilinogen Urine Negative (Negative)
[2021-11-14 05:42] LABS: Troponin I High Sensitivity 83.2 pg/ml (0-20)
--- NOTE | 2021-11-14 06:33 | History & Physical Report ---
Date of Service November 14, 2021 Assessment & Plan (1) Chronic hyponatremia: Plan: Acute/chronic hyponatremia- Sodium 126 on admission, which then his previous admissions been associated with fluid overload Continue sodium chloride 1 g p.o. 3 times daily Fluid restriction 1500 cc Given Lasix 40 mg IV in the ED, will repeat every morning, due to showing signs of overall fluid overload Follow serial renal profile (2) Elevated troponin: Plan: Elevated troponin/fluid overload/CHF exacerbation/ischemic cardiomyopathy/AICD- Troponin 83.2 upon admission follow serially Most recent echo performed in September 2021, and will not repeat Lasix 40 mg IV daily as noted above Consult cardiology (3) Fluid overload: Plan: Patient insisted is not drinking excessive amounts of fluid, but invariably, he comes in with low sodium and low serum and urine osmolality (4) Acute exacerbation of chronic obstructive pulmonary disease (COPD): Plan: Given methylprednisolone 125 mg IV in ED Continue methylprednisolone 40 mg IV every 8 hours Guaifenesin extended release 1200 mg p.o. twice daily Patient reports he is unable to afford inhalers or nebulizers at home If you are able to have nebulizer treatments at home, will be making less likely need to come to the hospital Patient also feels that he needs an oxygen tank at home for nighttime particular, as that is when he has no difficulty breathing (5) Ischemic cardiomyopathy: Plan: See above (6) Heart failure, systolic, with acute decompensation: (7) Ischemic cardiomyopathy with implantable cardioverter-defibrillator (ICD): History of Present Illness Chief Complaint: The patient presents to the emergency department with worsening shortness of breath over the previous evening Primary Care Provider: Riri Mosqueda MD The patient is a 66-year-old male with a past medical history including atrial fibrillation with rapid ventricular response, systolic CHF, nonsustained V. tach, ischemic cardiomyopathy, COPD, chronic hyponatremia, AAA, laryngeal squamous cell carcinoma, chronic hoarseness and depression. Patient was most recently admitted from 10/28- for similar symptoms. He presented to the emergency department on 11/10, received IV Lasix, with improvement in lower extremity edema. He presents to the emergency department with worsening breathing as noted, over the past 24 hours. He reports that he is unable to afford his nebulizer treatments and his inhalers, and has not done as well re cently because of the high humidity. Allergies Allergy/AdvReac Type Severity Reaction Status Date / Time No Known Allergies Allergy Verified 11/10/21 16:21 Home Medications Medication Instructions Recorded Confirmed Type aspirin 81 mg tablet,delayed 81 mg PO BID 06/04/19 11/10/21 History release (Adult Aspirin Regimen) gabapentin 600 mg tablet 600 mg PO DAILY 09/22/21 11/10/21 History sildenafil 100 mg tablet (Viagra) 100 mg PO DAILY PRN #14 tab 09/29/21 11/10/21 Rx metoprolol succinate 50 mg 50 mg PO DAILY #30 tab 09/30/21 11/10/21 Rx tablet,extended release 24 hr albuterol sulfate 90 mcg/actuation 1 inh INHALATION Q6H PRN #8.5 g 10/29/21 11/10/21 Rx aerosol inhaler sodium chloride 1 gram tablet 1,000 mg PO TID 30 Days #90 tab 10/29/21 11/10/21 Rx tiotropium bromide 18 mcg capsule 1 cap INHALATION DAILY #1 inh 10/29/21 Rx with inhalation device prednisone 20 mg tablet See Rx Instructions PO .COMPLEX 11/05/21 11/10/21 Rx #30 tab furosemide 20 mg tablet (Lasix) 20 mg PO DAILY #10 tab 11/10/21 Rx magnesium oxide 400 mg (241.3 mg 400 mg PO DAILY #7 tab 11/10/21 Rx magnesium) tablet (MagOx) Past Med/Surg History Medical History Alcohol withdrawal Anemia Chronic- stable COPD (chronic obstructive pulmonary disease) Ischemic cardiomyopathy with implantable cardioverter-defibrillator (ICD) 05/2019 ECHO shows EF of 20-25% MEDTRONIC DEFIB IMPLANTED AFTER CABG X 3 in 2017 Lesion of vocal fold PATIENT STATES DR DHILLON ATTEMPTED TO PASS SCOPE AND UNABLE. HE NEEDS THIS PROCEDURE (DIRECT MICROLAYNGOSCOPY WITH BIOPSIES)- CONCERNS FOR LARYNGEAL CANCER 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- CARDIAC ARREST WHILE DRIVING - HE WAS DEFIBRILLATED AT THE SCENE AND TAKEN TO [facility] AND THEN [facility] TO [facility] Peripheral vascular disease HAS STENT IN RIGHT LEG Surgical History History of cardiac cath HAD CATH AROUND 2006 WITH STENT; THEN IN 11/2016 HAD CATH WITH CABG X3 FOLLOW WITH [facility] History of coronary artery bypass graft 2017- CARABALLO to LAD, SVG to OM, SVG to PDA History of surgery on extremity RIGHT LEG AND HAD STENT PLACED 2017 History of throat surgery direct microlaryngoscopy with biopsies-06/25/2019-Dr. Dhillon Family History Mother Diabetes Brother Hypertension Myocardial infarction Denies family history of Ovarian cancer Prostate cancer Breast cancer Colorectal cancer Social History Smoking Status: Current every day smoker Tobacco Type: Cigarettes Cigarettes Per Day: 3-4; Second Hand Exposure: No; Hx Alcohol Use: Yes Alcohol type: beer and hard liquor Alcohol Intake Frequency Comment: 2-3 drinks a day Hx Substance Use: No Preferred Language: Sammarinese Communication Ability: Effective Visual Impairment: No Limitations Pro Shop Attendant Required: No Beliefs That Will Affect Care: None marital status: Single Current Living Situation: Alone current occupational status: retired Feels Safe at Home: Yes Childhood Exposure to Second-Hand Smoke: Yes caffeine: Yes Dental Care, Regularly: No Physical Activity Frequency: Daily Seatbelt Use: never Sunscreen Use: No Assistive Devices: Denture - Upper and Glasses Review of Systems Review of Systems: The patient denies chest pain, palpitations, fevers, chills, sweats, weight change, nausea, vomiting, diarrhea , constipation, abdominal pain, pelvic pain, blood in urine or stool, dysuria, urinary frequency or urgency, lightheadedness, dizziness, headache, memory loss, loss of consciousness, rash, abnormal bruising or bleeding, imbalance, focal weakness, numbness or tingling in arms or legs, back or neck pain, or night sweats. The review of systems is otherwise negative other than for that already noted above, and at least 10 systems have been reviewed. Physical Exam Physical Exam: The patient is awake, alert and oriented 3, appears cachectic, normocephalic and atraumatic, lying in bed and in no acute distress. HEENT--PERRL, EOMI, mucous membranes and oropharynx dry. Neck--supple. No JVD. No bruits. Thyroid normal, trachea midline, no adenopathy. Heart--normal S1 and S2. No murmurs, rubs or gallops. Lungs--crackles at the bases, with coarse breath sounds bilaterally. No respiratory distress, no accessory muscle use. Abdomen--normal bowel sounds and soft. Nontender. Nondistended, no hernias or masses, no organomegaly. Extremities--no cyanosis or clubbing. No edema. Dermatologic--normal skin turgor, normal color, no abnormal lymph nodes, no rash. Neurologic--cranial nerves II through XII grossly intact. Rheumatologic--normal range of motion. Psychiatric--normal affect. Results & Data Results & Data ([facility]) Vital Signs (Past 12 Hours) Vital Signs Temp Pulse Pulse Resp BP BP Pulse Ox 11/14/21 06:03 87 17 137/88 100 11/14/21 05:23 86 18 136/81 98 11/14/21 05:01 84 16 121/80 93 11/14/21 04:46 76 16 118/78 96 11/14/21 04:33 87 17 120/91 97 11/14/21 04:32 96 11/14/21 04:17 114 H 20 98 11/14/21 04:06 36.1 C L 114 H 24 128/79 100 Laboratory Results Laboratory Results WBC 10.53 K/uL (4.8-10.8) 11/14/21 04:23 RBC 4.00 M/uL (4.7-6.1) L 11/14/21 04:23 Hgb 12.8 g/dL (14.0-18.0) L 11/14/21 04:23 Hct 37.6 % (42-52) L 11/14/21 04:23 MCV 94.0 fL (80-100) 11/14/21 04:23 MCH 32.0 pg (25-34) 11/14/21 04:23 MCHC 34.0 g/dL (32-36) 11/14/21 04:23 RDW Std Deviation 54.7 fL (36.4-46.3) H 11/14/21 04:23 RDW Coeff of Erik 16.1 % (11.5-14.5) H 11/14/21 04:23 Plt Count 123 K/uL (130-400) L 11/14/21 04:23 MPV 10.9 fL (7.4-10.4) H 11/14/21 04:23 Immature Gran % (Auto) 0.4 % 11/14/21 04:23 Neut % (Auto) 88.2 % 11/14/21 04:23 Lymph % (Auto) 6.2 % 11/14/21 04:23 [place] % (Auto) 5.2 % 11/14/21 04:23 Eos % (Auto) 0.0 % 11/14/21 04:23 Baso % (Auto) 0.0 % 11/14/21 04:23 Neut # (Auto) 9.29 K/uL (1.4-6.5) H 11/14/21 04:23 Lymph # (Auto) 0.65 K/uL (1.2-3.4) L 11/14/21 04:23 [place] # (Auto) 0.55 K/uL (0.11-0.59) 11/14/21 04:23 Eos # (Auto) 0.00 K/uL (0-0.5) 11/14/21 04:23 Baso # (Auto) 0.00 K/uL (0-0.2) 11/14/21 04:23 Immature Gran # (Auto) 0.04 K/uL (0.00-0.02) H 11/14/21 04:23 PT 11.6 Seconds (9.0-12.0) 11/14/21 04:23 INR 1.1 (0.9-1.1) 11/14/21 04:23 APTT 24.0 Seconds (21.0-31.0) 11/14/21 04:23 PTT Ratio 0.9 11/14/21 04:23 Sodium 126 mmol/L (136-145) L 11/14/21 04:23 Potassium 4.4 mmol/L (3.5-5.1) 11/14/21 04:23 Chloride 84 mmol/L (98-107) L 11/14/21 04:23 Carbon Dioxide 34 mmol/L (21-32) H 11/14/21 04:23 Anion Gap 8 (3-11) 11/14/21 04:23 BUN 30 mg/dl (6-23) H 11/14/21 04:23 Creatinine 1.23 mg/dl (0.6-1.4) 11/14/21 04:23 Est Cr Clr Drug Dosing 54.1 ml/min 11/14/21 04:23 Est GFR ( Amer) 70.5 ml/min 11/14/21 04:23 Est GFR (Non-Af Amer) 60.8 ml/min 11/14/21 04:23 BUN/Creatinine Ratio 24.4 (10-20) H 11/14/21 04:23 Glucose 122 mg/dl (70-99(Fasting)) H 11/14/21 04:23 Calcium 9.5 mg/dl (8.5-10.1) 11/14/21 04:23 Magnesium 1.9 mg/dl (1.7-2.4) 11/14/21 04:23 Total Bilirubin 1.3 mg/dl (0.2-1.0) H 11/14/21 04:23 AST 23 U/L (13-39) 11/14/21 04:23 ALT 20 U/L (7-52) 11/14/21 04:23 Alkaline Phosphatase 78 U/L (34-104) 11/14/21 04:23 Troponin I High Sens 83.2 pg/ml (0-20) H* D 11/14/21 04:23 B-Natriuretic Peptide 3246 pg/ml (0-100) H 11/14/21 04:23 Total Protein 6.7 gm/dl (6.0-8.3) 11/14/21 04:23 Albumin 3.9 gm/dl (3.4-5.0) 11/14/21 04:23 Globulin 2.8 gm/dl (2.5-4.0) 11/14/21 04:23 Albumin/Globulin Ratio 1.4 (0.9-2) 11/14/21 04:23 Urine Color Yellow 11/14/21 05:20 Urine Appearance Clear (Clear) 11/14/21 05:20 Urine pH 6.0 (4.5-7.5) 11/14/21 05:20 Ur Specific [place] 1.011 (1.000-1.030) 11/14/21 05:20 Urine Protein Negative (Negative) 11/14/21 05:20 Urine Glucose (UA) Negative (Negative) 11/14/21 05:20 Urine Ketones Negative (Negative) 11/14/21 05:20 Urine Blood Negative (Negative) 11/14/21 05:20 Urine Nitrite Negative (Negative) 11/14/21 05:20 Urine Bilirubin Negative (Negative) 11/14/21 05:20 Urine Urobilinogen Negative (Negative) 11/14/21 05:20 Ur Leukocyte Esterase Negative (Negative) 11/14/21 05:20 SARS-CoV-2, RNA, NAAT NEGATIVE (NEGATIVE) 11/14/21 05:55 Code Status & VTE Plan Code Status Full code VTE Prophylaxis Plan VTE Prophylaxis will be ordered: Yes PG Care Time/CCT Total # of Minutes Spent Total Time Spent with Patient: Total time spent is greater than 50% in coordination of care (as documented) at patient's floor/unit and/or counseling patient: Coding Level of Care Code 29447 Initial Inpt Care Lvl 3 Diagnoses Chronic hyponatremia E87.1 Elevated troponin R77.8 Fluid overload E87.70 Hypervolemia type: unspecified Acute exacerbation of chronic obstructive pulmonary disease (COPD) J44.1 Ischemic cardiomyopathy I25.5 Heart failure, systolic, with acute decompensation I50.23 Ischemic cardiomyopathy with implantable cardioverter-defibrillator (ICD) I25.5; Z95.810 (1) Fluid overload Hypervolemia type: unspecified Qualified Code(s): E87.70 - Fluid overload, unspecified
[2021-11-14] MEDS: ALBUT/IPRATROP 3MG/0.5MG NEB 3 ML VIAL NEB SCH ×4 (07:10→19:43)
[2021-11-14] MEDS ORDERED: ACETAMINOPHEN 325 MG TAB PO PRN (08:24)
[2021-11-14] MEDS ORDERED: ONDANSETRON INJ 2 MG/ML 2 ML VIAL IV PRN (08:24)
--- NOTE | 2021-11-14 09:00 | XRay Report ---
XR chest 1V portable CLINICAL HISTORY: Dyspnea TECHNIQUE: Single frontal radiograph of the chest was obtained. Comparison: Comparison is made to chest radiograph 11/10/2021 FINDINGS: Median sternotomy wires are unchanged. Stable defibrillator. Cardiomegaly is noted. The lungs are dianne ar. There is a trace right pleural effusion. IMPRESSION: Trace right pleural effusion. No evidence of pneumonia. ACT 112: Negative or not required by law. Electronically signed by: Trip Little M.D. 11/14/2021 8:58 AM
[2021-11-14] MEDS: METOPROLOL SUCC 50MG EXT REL TAB PO SCH (09:26)
[2021-11-14] MEDS: GABAPENTIN 600 MG TAB PO SCH (09:26)
[2021-11-14] MEDS: guaiFENesin 600 MG TABCR PO SCH ×2 (09:26→20:22)
[2021-11-14] MEDS: SODIUM CHLORIDE 1 GM TABLET PO SCH ×3 (09:26→20:22)
[2021-11-14] MEDS: ASPIRIN 81 MG ECTAB PO SCH ×2 (09:26→20:22)
[2021-11-14] MEDS: methylPREDNISolone 40 MG in SYRINGE 0 ML IV SCH ×2 (09:26→16:50)
[2021-11-14] MEDS: FUROSEMIDE 40 MG/4 ML VIAL IV SCH (09:27)
[2021-11-14] MEDS: HEPARIN SOD 5,000 UNIT/0.5 ML VIAL SQ SCH ×2 (09:27→20:23)
[2021-11-14] MEDS ORDERED: AZITHROMYCIN 500 MG in DEXTROSE 5% 250 ML IV STA (09:46)
[2021-11-14] MEDS ORDERED: AZITHROMYCIN 250 MG TAB PO ONE (09:48)
--- NOTE | 2021-11-14 09:54 | Hospitalist Progress Note ---
Date of Service November 14, 2021 Assessment & Plan (1) Elevated troponin: Plan: The patient is a 66-year-old male with a past medical history including atrial fibrillation with rapid ventricular response, systolic CHF, nonsustained V. tach, ischemic cardiomyopathy, COPD, chronic hyponatremia, AAA, laryngeal squamous cell carcinoma, chronic hoarseness and depression who presents for worsening Shortness of breath noted to have atrial fibrillation. #Acute on Chronic Respiratory Failure 2/2 to COPD Patient with long history of smoking up to 3 packs/day reports recently decreasing his cigarette consumption to 3 to 4/day. Patient's baseline respiratory status is not great, and he is noncompliant with his inhalers. -Respiratory therapy incentive spirometry, chest PT, flutter valve -Holding off as needed DuoNebs secondary to atrial fibrillation on presentation -Solu-Medrol 40 mg every 8 hours -Mucinex 1200 mg twice daily -Azithromycin 500 mg today then to 50 mg for 4 days (QTc on admit was 460) -Continued emphasis and education on the importance of medication compliance -Overnight pulse ox -monitor on telemetry #Acute on Chronic CHF exacerbation and chronic hyponatremia Patient with ischemic cardiomyopathy which is subsequently progressed to CHF. Presently patient appears to be in acute exacerbation secondary to fluid overload. Upon reviewing patient's history it appears as if he really only drinks coffee at home and appears to fit the phenotype of the " dry wet" CHF. To that effect we will be cautious with aggressive diuresis especially given slight elevation in creatinine. -Fluid restriction 1500 mL -1 g sodium chloride 3 times daily -Lasix 40 mg every morning -Trend BMP -If electrolytes fail to improve consider nephrology consultation #SY Borderline SY -baseline creatinine appears to be 1 on admission was 1.2 -Avoid nephrotoxins -Caution with diuresis -Daily BMP #Ischemic Cardiomyopathy/arrhythmia History of Severe ischemic cardiomyopathy with left ventricular ejection fraction 20 to 25%, nonspecific intraventricular conduction delay wiht QRS duration 120 ms, remote inferior wall myocardial infarction, NS-VT and sustained ventricular tachycardia/ventricular fibrillation including prior cardiac arrest on November 22, 2016 leading to discovery of multivessel coronary artery disease status post November 28, 2016 CABG, December 05, 2016 single chamber Medtronic ICD implantation. At recent cardiology consultation September 24, 2021 he has declined all medication including ACEI/ARB/Entresto/SGLT2. Patient's preferred battery charger tester is Dr. Stinson at [facility] in [facility], he was last seen by Dr. Stinson July 17, 2019. -Initially presented in atrial fibrillation and this resolved with 20 mg dose of IV diltiazem -Continue metoprolol 50 mg daily -Monitor on telemetry -QTC on admission 460 -Daily EKG -Strict I's and O's -1500 mL fluid restriction -If patient's cardiac function begins to decompensate consider cardiac consultation #Chronically Elevated troponin History of chronically elevated troponins #Alcohol abuse AWSS ordered, currently no signs or symptoms of withdrawal. -Started folic acid, B12, thiamine #Tobacco abuse Continue to encourage smoking cessation FENa: 1500 mL fluid restriction Code Status: Full code DVT PPX: Heparin every 12 PT/OT: Ordered Case Management: Consulted patient will need assistance paying for his medication and following up with consultants including cardiology and nephrology and family medicine Dispo: Telemetry Dung Mayer MD PGY 3, FCM This chart was completed utilizing [employer] voice recognition software. Grammatical errors, random word insertions, pronoun errors, and in complete sentences are an occasional consequence of the system. Any questions or concerns about the content, text, or information contained within the body of this dictation should be addressed directly to the physician for clarification. (2) Acute hyponatremia: (3) Chronic hyponatremia: (4) Congestive heart failure: (5) Ischemic cardiomyopathy: (6) COPD (chronic obstructive pulmonary disease): (7) Ischemic cardiomyopathy with implantable cardioverter-defibrillator (ICD): (8) AAA (abdominal aortic aneurysm): Admission and Anticipated Discharge Date Admission Date: November 14, 2021 Supervising Physician Co-Signing Physician Notes I personally examined the patient and verified all cummins points of history and exam, discussed case, and agree with decision making with Dr Mayer breathing feels better now. thinks he needs O2 for home. also notes inhalers have been cost prohibitive vitals noted nad heent nc at mmm breathing unlabored no accessory muscles good effort skin no rashes no pallor or icterus SOB - while likely multifactorial, probably COPD predominant. continue current care for now. met criteria for home O2 last admit but declined - will ask that it be set up again (since he specifically is thinking HS - will get overnight pulse ox, although probably should have 24/7 so will order 2step as well - redundant -- but so that he can hopefully qualify both ways and be willing to use. also should have sleep study as outpt). as RN raffaele to help with coverage for inhalers (ideally LAMA/LABA/ICS and prn albuterol) otherwise as above Subjective Patient lying in bed this morning in no acute distress reporting that his breathing is much better. Patient notes that over the days prior to his ad mission his main symptoms occurred in the evening. Particularly when he laid flat at night. He describes symptoms of breathlessness which were resolved upon sitting up. He states he follows with his battery charger tester in [place] and would prefer that they are the ones to manage his cardiac concerns. He denies any fevers or chills, chest pressure or chest pain and reports improving shortness of breath. All questions were answered acute concerns are related to discharge. Review of Systems Review of Systems: as above Physical Exam Physical Exam: General:. No acute distress HEENT: Normocephalic atraumatic Neck: Normal to visual inspection Cardiac: Sinus tachycardia regular rhythm, systolic ejection murmur Respiratory: Coarse breath sounds bilaterally with diffuse wheezing throughout all lung varela no increased work of breathing GI: Soft, nontender, nondistended MSK: Moves all extremities Neuro: Alert and oriented x4 Psych: Calm and cooperative with interview Results & Data Results & Data ([facility]) Vital Signs (Past 12 Hours) Vital Signs Temp Pulse Pulse Resp BP BP Pulse Ox 11/14/21 09:13 108 H 11/14/21 08:45 36.6 C 106 H 18 139/101 H 97 11/14/21 08:24 36.6 C 105 H 18 139/101 H 97 11/14/21 07:57 79 20 134/79 96 11/14/21 07:10 107 H 17 97 11/14/21 06:03 87 17 137/88 100 11/14/21 05:23 86 18 136/81 98 11/14/21 05:01 84 16 121/80 93 11/14/21 04:46 76 16 118/78 96 11/14/21 04:33 87 17 120/91 97 11/14/21 04:32 96 11/14/21 04:17 114 H 20 98 11/14/21 04:06 36.1 C L 114 H 24 128/79 100 Resident Activity Tracking Resident Involvement: Resident Care Provided Care Provided: Adult Hospital Medicine (1) Congestive heart failure Heart failure chronicity: acute on chronic Heart failure type: unspecified Qualified Code(s): I50.9 - Heart failure, unspecified
[2021-11-14] MEDS: THIAMINE HCL 100 MG TAB PO SCH (11:43)
[2021-11-14] MEDS: CYANOCOBALAMIN (B-12) 100 MCG TABLET PO SCH (11:43)
[2021-11-14] MEDS: FOLIC ACID 1 MG TAB PO SCH (11:43)
[2021-11-14] MEDS ORDERED: FAMOTIDINE 20 MG TAB PO PRN (18:43)
[2021-11-14] MEDS ORDERED: FAMOTIDINE 40 MG TABLET PO ONE (18:43)
--- NOTE | 2021-11-14 21:13 | Electrocardiogram Report ---
Test Reason : Blood Pressure : / mmHG Vent. Rate : 120 BPM Atrial Rate : 182 BPM P-R Int : 000 ms QRS Dur : 122 ms QT Int : 328 ms P-R-T Axes : 000 074 201 degrees QTc Int : 463 ms Atrial fibrillation with rapid ventricular response Possible Inferior infarct , age undetermined Abnormal ECG When compared with ECG of 10-NOV-2021 15:05, Atrial fibrillation has replaced Sinus rhythm Vent. rate has increased BY 46 BPM Confirmed by Bunny Murray ([id number]) on 11/14/2021 9:12:30 PM Referred By: REFERRED SELF Confirmed By:Bunny Murray
--- NOTE | 2021-11-14 21:14 | Electrocardiogram Report ---
Test Reason : Blood Pressure : / mmHG Vent. Rate : 081 BPM Atrial Rate : 117 BPM P-R Int : 000 ms QRS Dur : 126 ms QT Int : 396 ms P-R-T Axes : 000 059 163 degrees QTc Int : 460 ms Atrial fibrillation Non-specific intra-ventricular conduction block T wave abnormality, consider anterolateral ischemia Abnormal ECG When compared with ECG of 14-NOV-2021 04:16, (unconfirmed) Nonspecific T wave abnormality, improved in Inferior leads Confirmed by Bunny Murray ([id number]) on 11/14/2021 9:13:41 PM Referred By: REFERRED SELF Confirmed By:Bunny Murray
[2021-11-15] MEDS: methylPREDNISolone 40 MG in SYRINGE 0 ML IV SCH ×2 (02:47→09:28)
[2021-11-15] MEDS: ALBUT/IPRATROP 3MG/0.5MG NEB 3 ML VIAL NEB SCH ×2 (07:07→10:39)
[2021-11-15] MEDS: THIAMINE HCL 100 MG TAB PO SCH (08:03)
[2021-11-15] MEDS: METOPROLOL SUCC 50MG EXT REL TAB PO SCH (08:03)
[2021-11-15] MEDS: CYANOCOBALAMIN (B-12) 100 MCG TABLET PO SCH (08:03)
[2021-11-15] MEDS: HEPARIN SOD 5,000 UNIT/0.5 ML VIAL SQ SCH (08:03)
[2021-11-15] MEDS: FOLIC ACID 1 MG TAB PO SCH (08:03)
[2021-11-15] MEDS: FUROSEMIDE 40 MG/4 ML VIAL IV SCH (08:03)
[2021-11-15] MEDS: GABAPENTIN 600 MG TAB PO SCH (08:04)
[2021-11-15] MEDS: SODIUM CHLORIDE 1 GM TABLET PO SCH (08:04)
[2021-11-15] MEDS: ASPIRIN 81 MG ECTAB PO SCH (08:04)
[2021-11-15] MEDS: guaiFENesin 600 MG TABCR PO SCH (08:04)
[2021-11-15 08:44] LABS: Hematocrit (blood only) 34.1 % (42-52); Hemoglobin 11.4 g/dL (14.0-18.0); Mean Corpuscular Hemoglobin 31.9 pg (25-34); Mean Corpuscular Hgb Conc 33.4 g/dL (32-36); Mean Corpuscular Volume 95.5 fL (80-100); RDW Coefficient of Variation 16.6 % (11.5-14.5); RDW Standard Deviation 56.3 fL (36.4-46.3); Red Blood Count 3.57 M/uL (4.7-6.1); White Blood Count 15.32 K/uL (4.8-10.8)
[2021-11-15] MEDS ORDERED: AZITHROMYCIN 250 MG TAB PO SCH (09:00)
[2021-11-15 09:03] LABS: BUN Creatinine Ratio 25.8 (10-20); Calcium 9.1 mg/dl (8.5-10.1); Creatinine Clr Calc Pharmacy 53.8 ml/min; Est GFR (African American) 69.8 ml/min; Est GFR (Non-African American) 60.2 ml/min; Potassium 4.2 mmol/L (3.5-5.1)
[2021-11-15 09:05] LABS: Albumin Level 3.5 gm/dl (3.4-5.0); Calcium 9.1 mg/dl (8.5-10.1); Creatinine Clr Calc Pharmacy 54.2 ml/min; Est GFR (African American) 70.5 ml/min; Est GFR (Non-African American) 60.8 ml/min; Magnesium 1.9 mg/dl (1.7-2.4); Phosphorus 4.3 mg/dl (2.5-4.9); Potassium 4.2 mmol/L (3.5-5.1)
[2021-11-15 09:07] LABS: Immature Granulocytes # (auto) 0.06 K/uL (0.00-0.02); Immature Granulocytes % (auto) 0.4 %; Lymphocytes # (auto) 0.45 K/uL (1.2-3.4); Lymphocytes % (auto) 2.9 %; Mean Platelet Volume 10.7 fL (7.4-10.4); Monocytes # (auto) 0.45 K/uL (0.11-0.59); Monocytes % (auto) 2.9 %; Neutrophils # (auto) 14.36 K/uL (1.4-6.5); Neutrophils % (auto) 93.8 %; Platelet Count 97 K/uL (130-400); Platelet Estimate Decreased (Normal)
--- NOTE | 2021-11-15 10:41 | Electrocardiogram Report ---
Test Reason : Blood Pressure : / mmHG Vent. Rate : 113 BPM Atrial Rate : 093 BPM P-R Int : 000 ms QRS Dur : 118 ms QT Int : 306 ms P-R-T Axes : 000 063 179 degrees QTc Int : 419 ms Atrial fibrillation with rapid ventricular response with premature ventricular or aberrantly conducte d complexes Incomplete left bundle block Abnormal ECG When compared with ECG of 14-NOV-2021 04:53, HR has increased by 32 bpm Otherwise no significant change Confirmed by Keyon Lay ([id number]) on 11/15/2021 10:40:38 AM Referred By: REFERRED SELF Confirmed By:Keyon Lay
--- NOTE | 2021-11-15 12:32 | Cardiology Consultation ---
Date of Consultation November 15, 2021 Assessment & Plan (1) Congestive heart failure: (2) Acute exacerbation of chronic obstructive pulmonary disease (COPD): (3) Atrial fibrillation with rapid ventricular response: (4) Ischemic cardiomyopathy with implantable cardioverter-defibrillator (ICD): (5) Chronic hyponatremia: Complex cardiac/pulmonary patient with generally poor medical follow-up presents with mild decompensation secondary to transient volume overload exacerbating his COPD with superimposed atrial fibrillation with rapid ventricular response. His clinical status improved remarkably with mild diuresis and he appears euvolemic currently. Rather than routine diuretic, particularly given his chronic hyponatremia, recommended that he adopt a sliding scale weight-based diuretic regimen as follows: Weight gain of greater than 1 pound furosemide 40 mg daily Current weight or less no diuretic Would continue his metoprolol succinate for rate control of atrial fibrillation, could increase to 75 mg daily given his suboptimally controlled rate currently. He is a poor anticoagulation candidate for variety of reasons including medical noncompliance, thrombocytopenia, and routine and immoderate alcohol intake. In the past, it appears that his atrial fibrillation has been transient. He was agreeable to seeing me in follow-up in the [facility] office (he lives 10 minutes away), I have asked him to schedule an appointment for the end of November. Case discussed with Dr. Valladares. History of Present Illness Reason for Consultation: Elevated troponin, CHF, hyponatremia Requesting Physician: Kathie Valladares MD Attending Physician: Kathie Valladares MD History of Present Illness 66-year-old man with significant cardiac history and limited routine medical encounters who was admitted with progressive dyspnea and leg edema on 11/14/2021, received IV Lasix, and feels remarkably better and anxious to return home presently. He follows sporadically with Dr. Chris Stinson at [facility] in [place], but has not seen him in years. Among his cardiac issues include ICD placement (Medtronic [id number] single-chamber defibrillator) after cardiac arrest 2017 Severe ischemic cardiomyopathy remote IWMI (EF 20 to 25%) and occasional congestive heart failure CABG 2017 including CARABALLO to LAD, SVG to OM, SVG to PDA Ventricular tachycardia, ICD shock 2019 Mitral regurgitation Moderate pulmonary hypertension Patent foramen ovale Hypertension Dyslipidemia Peripheral vascular disease Abdominal aortic aneurysm Paroxysmal atrial fibrillation He also has multiple medical problems including significant COPD with chronic respiratory failure, chronic hyponatremia, possible laryngeal cancer, lung mass, chronic tobacco and alcohol use, anemia and thrombocytopenia, and history of retroperitoneal bleed. As noted, he feels well currently and notes no dyspnea, chest pain, or other symptoms. Prior to admission he had noted some leg edema but no chest pain, upon review of his dietary intake he did note eating bologna lunch meat, but generally he avoids salt/sodium. He is a current smoker and has "2 or 3" mixed drink alcoholic beverages nightly. Allergies Allergy/AdvReac Type Severity Reaction Status Date / Time No Known Allergies Allergy Verified 11/10/21 16:21 Home Medications Medication Instructions Recorded Confirmed Type aspirin 81 mg tablet,delayed 81 mg PO BID 06/04/19 11/10/21 History release (Adult Aspirin Regimen) gabapentin 600 mg tablet 600 mg PO DAILY 09/22/21 11/10/21 History sildenafil 100 mg tablet (Viagra) 100 mg PO DAILY PRN #14 tab 09/29/21 11/10/21 Rx metoprolol succinate 50 mg 50 mg PO DAILY #30 tab 09/30/21 11/10/21 Rx tablet,extended release 24 hr albuterol sulfate 90 mcg/actuation 1 inh INHALATION Q6H PRN #8.5 g 10/29/21 11/10/21 Rx aerosol inhaler sodium chloride 1 gram tablet 1,000 mg PO TID 30 Days #90 tab 10/29/21 11/10/21 Rx tiotropium bromide 18 mcg capsule 1 cap INHALATION DAILY #1 inh 10/29/21 11/10/21 Rx with inhalation device prednisone 20 mg tablet See Rx Instructions PO .COMPLEX 11/05/21 11/10/21 Rx #30 tab magnesium oxide 400 mg (241.3 mg 400 mg PO DAILY #7 tab 11/10/21 Rx magnesium) tablet (MagOx) furosemide 40 mg tablet 40 mg PO DAILY PRN #30 tab 11/15/21 Rx Patient History Medical History Alcohol withdrawal Anemia Chronic- stable COPD (chronic obstructive pulmonary disease) Ischemic cardiomyopathy with implantable cardioverter-defibrillator (ICD) 05/2019 ECHO shows EF of 20-25% MEDTRONIC DEFIB IMPLANTED AFTER CABG X 3 in 2017 Lesion of vocal fold PATIENT STATES DR DHILLON ATTEMPTED TO PASS SCOPE AND UNABLE. HE NEEDS THIS PROCEDURE (DIRECT MICROLAYNGOSCOPY WITH BIOPSIES)- CONCERNS FOR LARYNGEAL CANCER 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- CARDIAC ARREST WHILE DRIVING - HE WAS DEFIBRILLATED AT THE SCENE AND [facility] Peripheral vascular disease HAS STENT IN RIGHT LEG Peripheral vascular disease Sudden cardiac arrest Surgical History History of cardiac cath HAD CATH AROUND 2006 WITH STENT; THEN IN 11/2016 HAD CATH WITH CABG X3 FOLLOW WITH [facility] History of coronary artery bypass graft 2017- CARABALLO to LAD, SVG to OM, SVG to PDA History of surgery on extremity RIGHT LEG AND HAD STENT PLACED 2016 History of throat surgery direct microlaryngoscopy with biopsies-06/25/2019-Dr. Dhillon Family History Mother Diabetes Brother Hypertension Myocardial infarction Denies family history of Ovarian cancer Prostate cancer Breast cancer Colorectal cancer Social History Smoking Status: Current every day smoker Tobacco Type: Cigarettes Cigarettes Per Day: 3-4; Second Hand Exposure: No; Hx Alcohol Use: Yes Alcohol type: beer and hard liquor Alcohol Intake Frequency Comment: 2-3 drinks a day Hx Substance Use: No Preferred Language: Ethiopian Communication Ability: Effective Visual Impairment: No Limitations Obstetrics Teacher Required: No Beliefs That Will Affect Care: None marital status: Single Current Living Situation: Alone current occupational status: retired Feels Safe at Home: Yes Childhood Exposure to Second-Hand Smoke: Yes caffeine: Yes Dental Care, Regularly: No Physical Activity Frequency: Daily Seatbelt Use: never Sunscreen Use: No Assistive Devices: None Physical Exam Physical Exam: Thin adult white male in no distress. Normotensive. Pulse 108 bpm and irregular. Respiratory rate 22 but unlabored. . skin: no ecchymoses or generalized lesions. HEENT: unremarkable. Neck: Jugular venous pulse at the clavicle, no carotid bruits. Lungs: Moderately decreased breath sounds with scattered rhonchi and expiratory wheezing on forced exhalation only. No crackles or accessory muscle use. Cardiac: Irregular/mildly tachycardic rhythm, no obvious murmur or gallop. Abdomen: benign. Extremities: no edema, pulses intact. Neurologic: normal affect and conversation, nonfocal. Results & Data ([facility]) Laboratory Results WBC 15.3, hemoglobin 11.4, platelet count 97,000. Sodium 128, potassium 4.2, BUN 32, creatinine 1.24. Troponin 83.2 and declining subsequently. BNP 3246 Diagnostic Findings ECG showed atrial fibrillation with variable ventricular response, chronic anterolateral T wave inversions, incomplete left bundle branch block. PG Care Time/CCT Total # of Minutes Spent Total Time Spent with Patient: Total time spent is greater than 50% in coordination of care (as documented) at patient's floor/unit and/or counseling patient: Coding Level of Care Code 68934 Inpt Consult Level 4 Diagnoses Congestive heart failure I50.9 Heart failure chronicity: acute on chronic Heart failure type: unspecified Ischemic cardiomyopathy with implantable cardioverter-defibrillator (ICD) I25.5; Z95.810 Atrial fibrillation with rapid ventricular response I48.91 Chronic hyponatremia E87.1 Acute exacerbation of chronic obstructive pulmonary disease (COPD) J44.1 (1) Congestive heart failure Heart failure chronicity: acute on chronic Heart failure type: unspecified Qualified Code(s): I50.9 - Heart failure, unspecified
--- NOTE | 2021-11-15 13:14 | Discharge Summary ---
Date of Service November 15, 2021 Admission HPI Per Admitting Provider The patient is a 66-year-old male with a past medical history including atrial fibrillation with rapid ventricular response, systolic CHF, nonsustained V. tach, ischemic cardiomyopathy, COPD, chronic hyponatremia, AAA, laryngeal squamous cell carcinoma, chronic hoarseness and depression. Patient was most recently admitted from 10/28- for similar symptoms. He presented to the emergency department on 11/10, received IV Lasix, with improvement in lower extremity edema. He presents to the emergency department with worsening breathing as noted, over the past 24 hours. He reports that he is unable to afford his nebulizer treatments and his inhalers, and has not done as well recently because of the high humidity. Principal Diagnosis COPD exacerbation, atrial fibrillation with RVR Discharge Exam General: Well-appearing, alert, interactive, and in no acute distress. HEENT: Normocephalic, atraumatic. EOM intact. Good conjugate gaze. Nares patent. Moist mucosal membranes. Tympanic membrane without bulging/fluid. Neck: Supple. No lymphadenopathy. Normal ROM. CV: Regular rate and rhythm. Normal S1 and S2. No murmurs gallops or rubs. No pedal edema. Respiratory: Normal respiratory effort. Lungs rhonchorous during auscultation; slight and expiratory wheeze. No wheezes Abdomen: Soft, nondistended abdomen. No bruits heard on auscultation. No tenderness to deep palpation. No guarding or rebound. Extremities: Normal tone and ROM. Strength and sensation intact. Capillary refill <2 sec. 2+ dp equal bilaterally. Skin: Intact, without rashes, lesions, or erythema. Discharge Data Allergies Allergy/AdvReac Type Severity Reaction Status Date / Time No Known Allergies Allergy Verified 11/17/21 11:09 Consultations 11/14/21 06:07 ED Decision to Admit Stat 11/14/21 08:24 Consult Cardiology Routine 11/14/21 17:04 Consult JOLENEG roll inspector Routine Hospital Course (1) Elevated troponin: The patient is a 66-year-old male with a past medical history including atrial fibrillation with rapid ventricular response, systolic CHF, nonsustained V. tach, ischemic cardiomyopathy, COPD, chronic hyponatremia, AAA, laryngeal squamous cell carcinoma, chronic hoarseness and depression who presents for worsening Shortness of breath noted to have atrial fibrillation. #Acute on Chronic Respiratory Failure 2/2 to COPD Patient with long history of smoking up to 3 packs/day reports recently decreasing his cigarette consumption to 3 to 4/day. Patient's baseline respiratory status is not great, and he is noncompliant with his inhalers. -Respiratory therapy incentive spirometry, chest PT, flutter valve -Holding off as needed DuoNebs secondary to atrial fibrillation on presentation -Solu-Medrol 40 mg every 8 hours -Mucinex 1200 mg twice daily -Azithromycin 500 mg today then to 50 mg for 4 days (QTc on admit was 460) -Continued emphasis and education on the importance of medication compliance -Overnight pulse ox -monitor on telemetry #Acute on Chronic CHF exacerbation and chronic hyponatremia Patient with ischemic cardiomyopathy which is subsequently progressed to CHF. Presently patient appears to be in acute exacerbation secondary to fluid overload. Upon reviewing patient's history it appears as if he really only drinks coffee at home and appears to fit the phenotype of the " dry wet" CHF. To that effect we will be cautious with aggressive diuresis especially given slight elevation in creatinine. -Fluid restriction 1500 mL -1 g sodium chloride 3 times daily -Lasix 40 mg every morning -Trend BMP -If electrolytes fail to improve consider nephrology consultation #SY Borderline SY -baseline creatinine appears to be 1 on admission was 1.2 -Avoid nephrotoxins -Caution with diuresis -Daily BMP #Ischemic Cardiomyopathy/arrhythmia History of Severe ischemic cardiomyopathy with left ventricular ejection fraction 20 to 25%, nonspecific intraventricular conduction delay wiht QRS duration 120 ms, remote inferior wall myocardial infarction, NS-VT and sustained ventricular tachycardia/ventricular fibrillation including prior cardiac arrest on November 22, 2016 leading to discovery of multivessel coronary artery disease status post November 28, 2016 CABG, December 05, 2016 single chamber Medtronic ICD implantation. At recent cardiology consultation September 24, 2021 he has declined all medication including ACEI/ARB/Entresto/SGLT2. Patient's preferred service center assistant is Dr. Stinson at [facility] in [facility], he was last seen by Dr. Stinson July 17, 2019. -Initially presented in atrial fibrillation and this resolved with 20 mg dose of IV diltiazem -Continue metoprolol 50 mg daily -Monitor on telemetry -QTC on admission 460 -Daily EKG -Strict I's and O's -1500 mL fluid restriction -If patient's cardiac function begins to decompensate consider cardiac consultation #Chronically Elevated troponin History of chronically elevated troponins #Alcohol abuse AWSS ordered, currently no signs or symptoms of withdrawal. -Started folic acid, B12, thiamine #Tobacco abuse Continue to encourage smoking cessation FENa: 1500 mL fluid restriction Code Status: Full code DVT PPX: Heparin every 12 PT/OT: Ordered Case Management: Consulted patient will need assistance paying for his medication and following up with consultants including cardiology and nephrology and family medicine Dispo: Telemetry Dung Mayer MD PGY 3, FCM This chart was completed utilizing [employer] voice recognition software. Grammatical errors, random word insertions, pronoun errors, and in complete sentences are an occasional consequence of the system. Any questions or concerns about the content, text, or information contained within the body of this dictation should be addressed directly to the physician for clarification. Discharge Plan Discharge Items Patient Disposition: Home - Self-Care Reason For Visit: ACUTE ON CHRONIC RESP FAILURE WITH HYPOXIA,CHF AND Discharge Diagnosis: Acute on chronic respiratory failure, CHF exacerbation, SY Activity: Per Instructions section Non-emergency contact: Primary Care Provider Call non-emergency contact if: you have any medication questions and your symptoms worsen Follow-up/Referrals: Riri Mosqueda MD [Primary Care Provider] - Diet: Heart Healthy and Low Sodium (2gm) Addtl Attending Provider Instructions: You were admitted to [facility] due to acute COPD exacerbation as well as CHF exacerbation. You were also found to have a mild acute kidney injury. For your COPD exacerbation you were treated with IV steroids and antibiotics while in hospital. Upon discharge you will be started on an oral prednisone taper and finish out your antibiotics orally. Please take these medications to completion. You were also evaluated by our respiratory therapists for home oxygen requirements -- they found that you will require 2 liters when exerting yourself at home. This will be set up for you at discharge by our case repairer. For your CHF exacerbation, you were treated with IV diuretics. We will have you continue to take furosemide at home for continued diuresis. Please make sure to follow a low sodium diet, limiting your sodium intake to 2000mg or less. Please continue to take all your other home medications as previously prescribed. We recommend that you follow up with your primary care provider before the weekend to ensure continued resolution of your issues and for repeat laboratories to evaluate your kidney function. * We changed your metoprolol succinate, from 50 mg once daily, to 75 mg once daily. A new prescription has been sent to your pharmacy. * We sent a new prescription, called Azithromycin, to your pharmacy. Take Azithromycin 250 mg once daily, for the next three days. If you develop any concerning symptoms such as chest pain, palpitations, shortness of breath, lack of urination, bloody urine, significant swelling, or any other concerning symptoms, please return to the emergency department for reevaluation. Pending Studies at Discharge: No Stand-Alone Forms: [facility], Smoking Cessation Medications and DC Order Prescriptions: Continued aspirin [Adult Aspirin Regimen] 81 mg tablet,delayed release (DR/EC) 81 mg PO BID RF: 0 gabapentin 600 mg tablet 600 mg PO QAM RF: 0 Discontinued metoprolol succinate 50 mg tablet extended release 24 hr 50 mg PO DAILY Qty: 30 RF: 5 No Action prednisone 20 mg tablet See Rx Instructions PO .COMPLEX Qty: 30 RF: 0 furosemide 40 mg tablet 40 mg PO QAM PRN (Reason: weight gain) RF: 0 sildenafil [Viagra] 100 mg tablet 100 mg PO QAM PRN (Reason: sexual activity) RF: 0 metoprolol succinate 25 mg tablet extended release 24 hr 75 mg PO QAM RF: 0 Discharge Orders: Discharge Order (Routine); Ordered 11/15/21 Ordered By: Charmaine Díaz Admission Data Admit Date/Time: 11/14/21 06:20 Attending Provider: Kathie Valladares Admit Provider: Adrián Hylton Primary Care Provider: Riri Mosqueda Other Providers: Adrián Hylton ; Bunny Murray ; Henrry Miranda Other Interventions: Discharge Summary Assessment (RN) Last Done: 11/15/21 13:05
== END 2021-11-15 13:40 | disposition home or self-care (01) | DRG 291 ==
LOC: ED 04:00 → 2E 06:20 → SUATTDRO 06:20 → 2E 07:57

== ENCOUNTER 2021-11-20 09:11 | Inpatient (IN) ==
--- NOTE | 2021-11-20 09:53 | Emergency Department Note ---
History of Present Illness General Chief complaint: Respiratory Problems Stated complaint: SOB/FEVER/CHILLS/COUGH Time Seen by Provider: 11/20/21 09:37 Source: patient and friends (His friend who is at the bedside) Mode of arrival: ambulatory Limitations: no limitations History of Present Illness This patient is a 66-year-old male who has a history of CHF, arrhythmias, COPD comes in after complaining of shortness of breath. He was just in the hospital and discharged a couple days ago. He said that he started having swelling his legs since this morning takes Lasix 40 mg a day he also has a history of chronic hyponatremia. He saw his doctor on Monday and he tells me his blood work looked okay except for his kidneys. He has some shortness of breath and cough. He finished some recent antibiotics. No chest pain or fever. No dysuria or hematuria. He denies any rapid heart rate he says his heart rate is always fast he is on no blood thinners he appears to be in chronic A. fib. He is complaining of feeling thirsty and short of breath at times. No trauma or injury Home Medications Medication Instructions Recorded Confirmed Type aspirin 81 mg tablet,delayed 81 mg PO BID 06/04/19 11/20/21 History release (Adult Aspirin Regimen) gabapentin 600 mg tablet 600 mg PO QAM 09/22/21 11/20/21 History furosemide 40 mg tablet 40 mg PO QAM PRN 11/16/21 11/20/21 History metoprolol succinate 25 mg 75 mg PO QAM 11/16/21 11/20/21 History tablet,extended release 24 hr prednisone 20 mg tablet See Rx Instructions PO .COMPLEX 11/16/21 11/20/21 Rx #30 tab sildenafil 100 mg tablet (Viagra) 100 mg PO QAM PRN 11/16/21 11/20/21 History Allergies Allergy/AdvReac Type Severity Reaction Status Date / Time No Known Allergies Allergy Verified 11/20/21 14:53 Past Med/Surg History Medical History Alcohol withdrawal Anemia Chronic- stable COPD (chronic obstructive pulmonary disease) Ischemic cardiomyopathy with implantable cardioverter-defibrillator (ICD) 05/2019 ECHO shows EF of 20-25% MEDTRONIC DEFIB IMPLANTED AFTER CABG X 3 in 2017 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, right cord reduced movement, glottic opening reduced - ENT has discussed with him a prophylactic trach which he has refused 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- CARDIAC ARREST WHILE DRIVING - HE WAS DEFIBRILLATED AT THE SCENE AND TAKEN TO THE [facility] AND THEN [facility] TO [facility] On home O2 2L/at night Peripheral vascular disease HAS STENT IN RIGHT LEG Peripheral vascular disease Poor historian Surgical History History of cardiac cath HAD CATH AROUND 2006 WITH STENT; THEN IN 11/2016 HAD CATH WITH CABG X3 FOLLOW WITH [facility]; "not sure what kind of stents he has" History of coronary artery bypass graft 2017- CARABALLO to LAD, SVG to OM, SVG to PDA History of surgery on extremity RIGHT LEG AND HAD STENT PLACED 2016 History of throat surgery direct microlaryngoscopy with biopsies-06/25/2019-Dr. Jacquie Jiang of colonoscopy Family History Mother Diabetes Brother Hypertension Myocardial infarction Denies family history of Ovarian cancer Prostate cancer Breast cancer Colorectal cancer Social History Smoking Status: Current some day smoker Tobacco Type: Cigarettes Cigarettes Per Day: 5/day; Second Hand Exposure: No; Hx Alcohol Use: Yes Alcohol type: hard liquor Alcohol Intake Frequency Comment: 2-3 drinks a day Hx Substance Use: No Preferred Language: Italian Communication Ability: Effective Visual Impairment: No Limitations Sales Account Coordinator Required: No Beliefs That Will Affect Care: None marital status: Single Current Living Situation: Alone current occupational status: retired Feels Safe at Home: Yes Childhood Exposure to Second-Hand Smoke: Yes caffeine: Yes Dental Care, Regularly: No Physical Activity Frequency: Daily Seatbelt Use: never Sunscreen Use: No Assistive Devices: Denture - Upper, Glasses and Oxygen - at Night Review of Systems A total of 10 systems reviewed and were otherwise negative Physical Exam Vital Signs Vital Signs - 24 hr 11/20/21 09:20 11/20/21 09:30 11/20/21 09:32 Temperature 36 C L Temperature Source Temporal Artery Scan Pulse Rate [Apical] 119 H Respiratory Rate 20 22 Respiratory Effort / Characteristics Short of Breath Respiratory Depth Normal Respiratory Pattern Tachypnea Blood Pressure 115/67 Blood Pressure [Right Arm] 124/96 Blood Pressure Mean 83 Blood Pressure Mean [Right Arm] 105 Blood Pressure Position [Right Arm] Lying Pulse Oximetry 93 Oxygen Delivery Method Room Air Room Air Room Air Oxygen Flow Rate Fraction of Inspired Oxygen Sepsis Recent Fever Within 48 Hours No Sepsis New/Unexplained Change in Mental Status No Sepsis Action Taken by Nursing No Action Required 11/20/21 09:50 11/20/21 10:31 11/20/21 10:58 Temperature Temperature Source Pulse Rate [Apical] 122 H 119 H Respiratory Rate 20 20 Respiratory Effort / Characteristics Respiratory Depth Normal Normal Respiratory Pattern Blood Pressure Blood Pressure [Right Arm] 121/78 122/83 Blood Pressure Mean Blood Pressure Mean [Right Arm] 92 96 Blood Pressure Position [Right Arm] Lying Lying Pulse Oximetry 94 99 98 Oxygen Delivery Method Room Air Nasal Cannula Nasal Cannula Oxygen Flow Rate 2 2 Fraction of Inspired Oxygen Sepsis Recent Fever Within 48 Hours Sepsis New/Unexplained Change in Mental Status Sepsis Action Taken by Nursing 11/20/21 11:25 11/20/21 11:43 11/20/21 12:23 Temperature 36.1 C L Temperature Source Temporal Artery Scan Pulse Rate [Apical] 122 H 125 H Respiratory Rate 20 20 Respiratory Effort / Characteristics Respiratory Depth Normal Normal Respiratory Pattern Blood Pressure Blood Pressure [Right Arm] 108/79 108/84 Blood Pressure Mean Blood Pressure Mean [Right Arm] 88 92 Blood Pressure Position [Right Arm] Lying Lying Pulse Oximetry 98 98 Oxygen Delivery Method Nasal Cannula Oxymask Oxygen Flow Rate 2 Fraction of Inspired Oxygen Sepsis Recent Fever Within 48 Hours Sepsis New/Unexplained Change in Mental Status Sepsis Action Taken by Nursing 11/20/21 13:14 11/20/21 13:34 11/20/21 14:10 Temperature Temperature Source Pulse Rate [Apical] 127 H 135 H 135 H Respiratory Rate 24 24 24 Respiratory Effort / Characteristics Labored Labored Tripoding Respiratory Depth Respiratory Pattern Tachypnea Blood Pressure Blood Pressure [Right Arm] 96/66 L 127/75 107/85 Blood Pressure Mean Blood Pressure Mean [Right Arm] 76 92 92 Blood Pressure Position [Right Arm] Lying Lying Sitting Pulse Oximetry 97 95 70 L Oxygen Delivery Method Nebulizer Oxymask Non-rebreather Oxygen Flow Rate 4 15 Fraction of Inspired Oxygen Sepsis Recent Fever Within 48 Hours Sepsis New/Unexplained Change in Mental Status Sepsis Action Taken by Nursing 11/20/21 14:21 11/20/21 14:27 Temperature Temperature Source Pulse Rate [Apical] 138 H 126 H Respiratory Rate 20 22 Respiratory Effort / Characteristics Spontaneous Spontaneous Respiratory Depth Respiratory Pattern Tachypnea Blood Pressure Blood Pressure [Right Arm] 96/79 L Blood Pressure Mean Blood Pressure Mean [Right Arm] 84 Blood Pressure Position [Right Arm] Pulse Oximetry 96 98 Oxygen Delivery Method High Flow Nasal Cannula High Flow Nasal Cannula Oxygen Flow Rate 25 25 Fraction of Inspired Oxygen 55 55 Sepsis Recent Fever Within 48 Hours Sepsis New/Unexplained Change in Mental Status Sepsis Action Taken by Nursing General: Slender, chronically ill-appearing older male who speaking full s entences and appears in no acute distress, breathing comfortably on room air. Normal speech HEENT: Normal cephalic atraumatic. Pupils are equal round and reactive to light. Extraocular movements are intact. Oropharynx is pink with moist mucous membranes. No swelling of the mouth lips or tongue. Neck: Supple with a midline trachea. No meningeal signs or stiffness, no JVD or bruits. No Stridor. Chest: Clear to auscultation bilaterally. No wheezes or rhonchi. No increased work of breathing. Heart: Cardiac and irregular with a rapid A. fib in the 1 teens seen on the monitor without murmurs or gallops. Abdomen: Soft nontender, nondistended without rebound guarding or rigidity. Extremities: No cyanosis clubbing or edema. No calf tenderness or assymetry Spine/Back. Non tender to palpation. No CVA tenderness Skin: Good turgor without rashes. Neurologic exam: Cranial nerves two through 12 are intact. Motor and sensation are intact and symmetrical throughout. Course Administered Medications Discontinued Medications Albuterol (Albut/Ipratrop 3mg/0.5mg Neb 3 Ml Vial) Confirm Administered Dose 3 ml .ROUTE .STK-MED ONE Stop: 11/20/21 13:10 Last Admin: 11/20/21 13:13 Dose: 3 ml Documented by: [id number] Albuterol (Albut/Ipratrop 3mg/0.5mg Neb 3 Ml Vial) 3 ml NEB NOW STA; Protocol Stop: 11/20/21 13:10 Last Admin: 11/20/21 13:15 Dose: Not Given Documented by: [id number] Albuterol (Albut/Ipratrop 3mg/0.5mg Neb 3 Ml Vial) 3 ml NEB NOW STA; Protocol Stop: 11/20/21 14:17 Last Admin: 11/20/21 14:26 Dose: 3 ml Documented by: [id number] Cefepime HCl (Maxipime) 20 mls @ 5 mls/min IV NOW ONE Stop: 11/20/21 10:48 Last Admin: 11/20/21 10:55 Dose: 5 mls/min Documented by: [id number] Azithromycin 500 mg/ Dextrose 255 mls @ 127.5 mls/hr IV NOW ONE Stop: 11/20/21 12:44 Last Infusion: 11/20/21 13:11 Dose: 0 mls/hr Documented by: [id number] Admin: 11/20/21 11:02 Dose: 127.5 mls/hr Documented by: [id number] Methylprednisolone (Methylprednisolone 125 Mg/2 Ml Vial) 125 mg IV NOW STA Stop: 11/20/21 12:38 Last Admin: 11/20/21 12:55 Dose: 125 mg Documented by: [id number] Critical Care Time Critical Care Time: Yes Total Critical Care Time: 35 The patient's hypoxemia, need for frequent reassessments, discussion with multiple family members and multiple interventions, I have personally spent greater than 30 minutes of critical care time in the direct management of this patient. This includes bedside care, interpretation of diagnostic studies, and testing, discussion with consultants, patient, and family members, and other required patient management activities. This 30 minutes is in excess of all separately billable procedures. Medical Decision Making Differential Diagnosis CHF, COPD, arrhythmia, infection, electrolyte or metabolic abnormalities, anemia, acute coronary syndrome Medical Records Attestation: I reviewed the patient's medical records. Home Medications Current Medication List: was personally reviewed by ia Laboratory Data Attestation: I reviewed the patient's lab results. Result diagrams: 11/20/21 09:35 11/20/21 09:35 Lab Results 11/20/21 11/20/21 11/20/21 Range/Units 09:35 09:35 09:35 WBC 15.37 H (4.8-10.8) K/uL RBC 4.07 L (4.7-6.1) M/uL Hgb 13.1 L (14.0-18.0) g/dL Hct 39.0 L (42-52) % MCV 95.8 (80-100) fL MCH 32.2 (25-34) pg MCHC 33.6 (32-36) g/dL RDW Std Deviation 57.4 H (36.4-46.3) fL RDW Coeff of Erik 16.5 H (11.5-14.5) % Plt Count 133 (130-400) K/uL MPV 11.2 H (7.4-10.4) fL Immature Gran % (Auto) 0.4 % Neut % (Auto) 88.8 % Lymph % (Auto) 8.8 % Kerr % (Auto) 2.0 % Eos % (Auto) 0.0 % Baso % (Auto) 0.0 % Neut # (Auto) 13.65 H (1.4-6.5) K/uL Lymph # (Auto) 1.36 (1.2-3.4) K/uL Kerr # (Auto) 0.30 (0.11-0.59) K/uL Eos # (Auto) 0.00 (0-0.5) K/uL Baso # (Auto) 0.00 (0-0.2) K/uL Immature Gran # (Auto) 0.06 H (0.00-0.02) K/uL PT 13.0 H (9.0-12.0) Seconds INR 1.2 H (0.9-1.1) APTT 23.1 (21.0-31.0) Seconds PTT Ratio 0.8 VBG pH (7.36-7.41) VBG pCO2 (38-50) mmHg VBG pO2 mmHg VBG HCO3 mmol/L VBG O2 Saturation % VBG Base Excess mEq/L Sodium (136-145) mmol/L Potassium (3.5-5.1) mmol/L Chloride (98-107) mmol/L Carbon Dioxide (21-32) mmol/L Anion Gap (3-11) BUN (6-23) mg/dl Creatinine (0.6-1.4) mg/dl Est Cr Clr Drug Dosing ml/min Est GFR ( Amer) ml/min Est GFR (Non-Af Amer) ml/min BUN/Creatinine Ratio (10-20) Glucose (70-99(Fasting)) mg/dl Lactate (0.4-2.0) mmol/L Calcium (8.5-10.1) mg/dl Total Bilirubin (0.2-1.0) mg/dl AST (13-39) U/L ALT (7-52) U/L Alkaline Phosphatase (34-104) U/L Troponin I High Sens 54.1 H* (0-20) pg/ml B-Natriuretic Peptide (0-100) pg/ml Total Protein (6.0-8.3) gm/dl Albumin (3.4-5.0) gm/dl Globulin (2.5-4.0) gm/dl Albumin/Globulin Ratio (0.9-2) Lipase (11-82) U/L Procalcitonin (0-0.5) ng/ml SARS-CoV-2, RNA, NAAT (NEGATIVE) 11/20/21 11/20/21 11/20/21 Range/Units 09:35 09:35 09:35 WBC (4.8-10.8) K/uL RBC (4.7-6.1) M/uL Hgb (14.0-18.0) g/dL Hct (42-52) % MCV (80-100) fL MCH (25-34) pg MCHC (32-36) g/dL RDW Std Deviation (36.4-46.3) fL RDW Coeff of Erik (11.5-14.5) % Plt Count (130-400) K/uL MPV (7.4-10.4) fL Immature Gran % (Auto) % Neut % (Auto) % Lymph % (Auto) % Kerr % (Auto) % Eos % (Auto) % Baso % (Auto) % Neut # (Auto) (1.4-6.5) K/uL Lymph # (Auto) (1.2-3.4) K/uL Kerr # (Auto) (0.11-0.59) K/uL Eos # (Auto) (0-0.5) K/uL Baso # (Auto) (0-0.2) K/uL Immature Gran # (Auto) (0.00-0.02) K/uL PT (9.0-12.0) Seconds INR (0.9-1.1) APTT (21.0-31.0) Seconds PTT Ratio VBG pH (7.36-7.41) VBG pCO2 (38-50) mmHg VBG pO2 mmHg VBG HCO3 mmol/L VBG O2 Saturation % VBG Base Excess mEq/L Sodium 127 L (136-145) mmol/L Potassium 4.0 (3.5-5.1) mmol/L Chloride 80 L (98-107) mmol/L Carbon Dioxide 37 H (21-32) mmol/L Anion Gap 10 (3-11) BUN 66 H (6-23) mg/dl Creatinine 1.65 H (0.6-1.4) mg/dl Est Cr Clr Drug Dosing 38.9 ml/min Est GFR ( Amer) 49.4 ml/min Est GFR (Non-Af Amer) 42.6 ml/min BUN/Creatinine Ratio 40.0 H (10-20) Glucose 138 H (70-99(Fasting)) mg/dl Lactate (0.4-2.0) mmol/L Calcium 9.6 (8.5-10.1) mg/dl Total Bilirubin 2.5 H (0.2-1.0) mg/dl AST 92 H (13-39) U/L ALT 138 H (7-52) U/L Alkaline Phosphatase 94 (34-104) U/L Troponin I High Sens (0-20) pg/ml B-Natriuretic Peptide 3381 H (0-100) pg/ml Total Protein 7.2 (6.0-8.3) gm/dl Albumin 4.2 (3.4-5.0) gm/dl Globulin 3.0 (2.5-4.0) gm/dl Albumin/Globulin Ratio 1.4 (0.9-2) Lipase 58 (11-82) U/L Procalcitonin 0.10 (0-0.5) ng/ml SARS-CoV-2, RNA, NAAT (NEGATIVE) 11/20/21 11/20/21 11/20/21 Range/Units 09:52 10:03 12:01 WBC (4.8-10.8) K/uL RBC (4.7-6.1) M/uL Hgb (14.0-18.0) g/dL Hct (42-52) % MCV (80-100) fL MCH (25-34) pg MCHC (32-36) g/dL RDW Std Deviation (36.4-46.3) fL RDW Coeff of Erik (11.5-14.5) % Plt Count (130-400) K/uL MPV (7.4-10.4) fL Immature Gran % (Auto) % Neut % (Auto) % Lymph % (Auto) % Kerr % (Auto) % Eos % (Auto) % Baso % (Auto) % Neut # (Auto) (1.4-6.5) K/uL Lymph # (Auto) (1.2-3.4) K/uL Kerr # (Auto) (0.11-0.59) K/uL Eos # (Auto) (0-0.5) K/uL Baso # (Auto) (0-0.2) K/uL Immature Gran # (Auto) (0.00-0.02) K/uL PT (9.0-12.0) Seconds INR (0.9-1.1) APTT (21.0-31.0) Seconds PTT Ratio VBG pH (7.36-7.41) VBG pCO2 (38-50) mmHg VBG pO2 mmHg VBG HCO3 mmol/L VBG O2 Saturation % VBG Base Excess mEq/L Sodium (136-145) mmol/L Potassium (3.5-5.1) mmol/L Chloride (98-107) mmol/L Carbon Dioxide (21-32) mmol/L Anion Gap (3-11) BUN (6-23) mg/dl Creatinine (0.6-1.4) mg/dl Est Cr Clr Drug Dosing ml/min Est GFR ( Amer) ml/min Est GFR (Non-Af Amer) ml/min BUN/Creatinine Ratio (10-20) Glucose (70-99(Fasting)) mg/dl Lactate 3.2 H* 2.4 H* (0.4-2.0) mmol/L Calcium (8.5-10.1) mg/dl Total Bilirubin (0.2-1.0) mg/dl AST (13-39) U/L ALT (7-52) U/L Alkaline Phosphatase (34-104) U/L Troponin I High Sens (0-20) pg/ml B-Natriuretic Peptide (0-100) pg/ml Total Protein (6.0-8.3) gm/dl Albumin (3.4-5.0) gm/dl Globulin (2.5-4.0) gm/dl Albumin/Globulin Ratio (0.9-2) Lipase (11-82) U/L Procalcitonin (0-0.5) ng/ml SARS-CoV-2, RNA, NAAT NEGATIVE (NEGATIVE) 11/20/21 Range/Units 14:17 WBC (4.8-10.8) K/uL RBC (4.7-6.1) M/uL Hgb (14.0-18.0) g/dL Hct (42-52) % MCV (80-100) fL MCH (25-34) pg MCHC (32-36) g/dL RDW Std Deviation (36.4-46.3) fL RDW Coeff of Erik (11.5-14.5) % Plt Count (130-400) K/uL MPV (7.4-10.4) fL Immature Gran % (Auto) % Neut % (Auto) % Lymph % (Auto) % Kerr % (Auto) % Eos % (Auto) % Baso % (Auto) % Neut # (Auto) (1.4-6.5) K/uL Lymph # (Auto) (1.2-3.4) K/uL Kerr # (Auto) (0.11-0.59) K/uL Eos # (Auto) (0-0.5) K/uL Baso # (Auto) (0-0.2) K/uL Immature Gran # (Auto) (0.00-0.02) K/uL PT (9.0-12.0) Seconds INR (0.9-1.1) APTT (21.0-31.0) Seconds PTT Ratio VBG pH 7.32 L (7.36-7.41) VBG pCO2 71 H (38-50) mmHg VBG pO2 14 mmHg VBG HCO3 37 mmol/L VBG O2 Saturation < 60.0 % VBG Base Excess 7.8 mEq/L Sodium (136-145) mmol/L Potassium (3.5-5.1) mmol/L Chloride (98-107) mmol/L Carbon Dioxide (21-32) mmol/L Anion Gap (3-11) BUN (6-23) mg/dl Creatinine (0.6-1.4) mg/dl Est Cr Clr Drug Dosing ml/min Est GFR ( Amer) ml/min Est GFR (Non-Af Amer) ml/min BUN/Creatinine Ratio (10-20) Glucose (70-99(Fasting)) mg/dl Lactate (0.4-2.0) mmol/L Calcium (8.5-10.1) mg/dl Total Bilirubin (0.2-1.0) mg/dl AST (13-39) U/L ALT (7-52) U/L Alkaline Phosphatase (34-104) U/L Troponin I High Sens (0-20) pg/ml B-Natriuretic Peptide (0-100) pg/ml Total Protein (6.0-8.3) gm/dl Albumin (3.4-5.0) gm/dl Globulin (2.5-4.0) gm/dl Albumin/Globulin Ratio (0.9-2) Lipase (11-82) U/L Procalcitonin (0-0.5) ng/ml SARS-CoV-2, RNA, NAAT (NEGATIVE) Imaging Data Attestation: I personally reviewed and interpreted this imaging study as follows: My Impression: Chest x-raythere is some haziness in the right midlung field consistent with pneumonia likely. No pneumothorax seen Chest X-ray #2no pneumothorax no change compared to chest x-ray #1. Continues to have some haziness in the right midlung field Radiologist's Impression: Chest X-Ray 11/20/21 09:47 XR chest 1V portable CLINICAL HISTORY: Chest Pain TECHNIQUE: Single frontal radiograph of the chest was obtained. Comparison: Comparison is made to chest radiograph 11/14/2021 FINDINGS: Median sternotomy wires are unchanged. Cardiomegaly is noted. There is a faint right midlung airspace opacity increased from prior exam. No evidence of pleural effusion or pneumothorax. IMPRESSION: Faint right airspace opacity may represent atelectasis, pneumonia, and/or aspira tion. ACT 112: Negative or not required by law. Electronically signed by: Trip Little M.D. 11/20/2021 10:22 AM Chest X-Ray 11/20/21 14:14 XR chest 1V portable CLINICAL HISTORY: SOB TECHNIQUE: Single frontal radiograph of the chest was obtained. Comparison: Comparison is made to chest radiograph 11/20/2021 at 1005 hours FINDINGS: Median sternotomy wires are unchanged. Stable defibrillator. The cardiomediastinal silhouette is normal. Continued prominence of right midlung airspace opacity, possibly more prominent than in prior exam. There is mild pulmonary edema new from prior exam. There are trace bilateral pleural effusio ns. IMPRESSION: 1. Interval worsening of right mid lung airspace opacity may represent worsening atelectasis, pneumonia or aspiration. 2. Cardiomegaly with mild pulmonary edema, increased from prior exam. 3. Small bilateral pleural effusions. ACT 112: Negative or not required by law. Electronically signed by: Trip Little M.D. 11/20/2021 3:05 PM ECG Data Attestation: I personally reviewed and interpreted this ECG as follows: Indication: + SOB/dyspnea Rate (beats per minute): 128 Rhythm: + sinus tachycardia ECG Intervals/blocks: + Left bundle branch block (Incomplete) and + Normal QT ECG Jackson: + Normal ECG ST segments: + Nonspecific ST abnormalities ECG Findings: no PVCs Comparison ECG Date: from (11/15/21) Change: no significant change MDM Narrative VisitThis Patient comes in as described above. He was placed on a case monitor in room B 10. He is having shortness of breath and lower extreme edema he does have history of CHF. He also has history of renal issues and other medical problems including arrhythmias. He appears to be in A. fib at a slightly rapid rate he says his heart rate is always in the 1 teens. His blood pressure is normal. IV access was established blood work was obtained chest x- ray and EKG was obtained as well as other blood testing. EKG shows baseline A. fib without any new ischemic changes. His white count is elevated as lactic acid is also elevated. Chest x-ray suggest a haziness/pneumonia. He was given IV antibiotics with azithromycin and cefepime. He does desaturate at times and was put on oxygen. He adamantly declined nebulized nebs. I told him that he needs to be admitted to the hospital is concerned about him he adamantly declined I talked to multiple family members he seemed to be getting worse and eventually did finally agree to getting a neb which I tried a neb treatment. He was placed on oxygen. I did consult the hospitalist to see him. COVID testing was negative. He proved difficult to treat as he refused most treatments. Agree to steroids and says this helps him sometimes and I gave 125 mg IV Solu- Medrol. He was seen by the admitting team and while he was waiting to be admitted they told me his O2 sat got low again I went and saw him he was in the 60s I think a lot of it seem to be positional will reposition in the bed and he got better we did order a VBG and put him on high flow nasal cannula and ordered additional neb. I let the admitting team know as well. I did discuss CODE STATUS with the patient and he tells me he would not want to be intubated or have CPR however when I asked him later he told me he would want CPR and I would treat him as a full code at this time. His VBG shows a pH of 7.32 however his PCO2 is elevated in the low 70s. Patient and him his O2 sat got a lot better I think he was occluding his airway somewhat by hanging his head over. We also put on high flow oxygen and the respiratory therapist does know him from his recent visit. He definitely needs to stay I am concerned about his hypoxemia I think it is multifocal related to COPD as well as infection/pneumonia cardiac disease and potentially other etiologies as well which need to be further investigated. He will be admitted Continuous cardiac monitoring: Order was placed in EMR for continuous cardiac monitoring. Isabel interpretation patient with no to be in rapid A. fib with a rate of 120 Impression & Plan COPD (chronic obstructive pulmonary disease), CHF (congestive heart failure), Atrial fibrillation with RVR, SOB (shortness of breath), Lab test negative for COVID-19 virus, Pneumonia, Hypoxemia Discharge Plan Visit Data Chief Complaint: Respiratory Problems Stated Complaint: SOB/FEVER/CHILLS/COUGH ED Provider: Juan Ellis Discharge Problem: COPD (chronic obstructive pulmonary disease), CHF (congestive heart failure), Atrial fibrillation with RVR, SOB (shortness of breath), Lab test negative for COVID-19 virus, Pneumonia, Hypoxemia Forms Stand Alone Forms: My [facility] [employer] Prescriptions Prescriptions: No Action prednisone 20 mg tablet See Rx Instructions PO .COMPLEX Qty: 30 RF: 0 aspirin [Adult Aspirin Regimen] 81 mg tablet,delayed release (DR/EC) 81 mg PO BID RF: 0 furosemide 40 mg tablet 40 mg PO QAM PRN (Reason: weight gain) RF: 0 sildenafil [Viagra] 100 mg tablet 100 mg PO QAM PRN (Reason: sexual activity) RF: 0 metoprolol succinate 25 mg tablet extended release 24 hr 75 mg PO QAM RF: 0 gabapentin 600 mg tablet 600 mg PO QAM RF: 0 Referrals Referrals: Riri Mosqueda MD [Primary Care Provider] - Discharge Problem: COPD (chronic obstructive pulmonary disease) Qualifiers: COPD type: COPD with acute exacerbation Qualified Code(s): J44.1 - Chronic obstructive pulmonary disease with (acute) exacerbation CHF (congestive heart failure) Qualifiers: Heart failure type: unspecified Heart failure chronicity: unspecified Qualified Code(s): I50.9 - Heart failure, unspecified Pneumonia Qualifiers: Pneumonia type: due to unspecified organism Laterality: right Lung location: unspecified part of lung Qualified Code(s): J18.9 - Pneumonia, unspecified organism
[2021-11-20 10:08] LABS: Hemoglobin 13.1 g/dL (14.0-18.0); Immature Granulocytes # (auto) 0.06 K/uL (0.00-0.02); Immature Granulocytes % (auto) 0.4 %; Lymphocytes # (auto) 1.36 K/uL (1.2-3.4); Lymphocytes % (auto) 8.8 %; Mean Corpuscular Hemoglobin 32.2 pg (25-34); Mean Corpuscular Hgb Conc 33.6 g/dL (32-36); Mean Corpuscular Volume 95.8 fL (80-100); Mean Platelet Volume 11.2 fL (7.4-10.4); Neutrophils # (auto) 13.65 K/uL (1.4-6.5); Neutrophils % (auto) 88.8 %; Platelet Count 133 K/uL (130-400); RDW Coefficient of Variation 16.5 % (11.5-14.5); RDW Standard Deviation 57.4 fL (36.4-46.3); Red Blood Count 4.07 M/uL (4.7-6.1); White Blood Count 15.37 K/uL (4.8-10.8)
[2021-11-20 10:20] LABS: INR 1.2 (0.9-1.1); Partial Thromboplastin Ratio 0.8; Partial Thromboplastin Time 23.1 Seconds (21.0-31.0)
--- NOTE | 2021-11-20 10:23 | XRay Report ---
XR chest 1V portable CLINICAL HISTORY: Chest Pain TECHNIQUE: Single frontal radiograph of the chest was obtained. Comparison: Comparison is made to chest radiograph 11/14/2021 FINDINGS: Median sternotomy wires are unchanged. Cardiomegaly is noted. There is a faint right midlung airspace opacity increased from prior exam. No evidence of pleural effusion or pneumothorax. IMPRESSION: Faint right airspace opacity may represent atelectasis, pneumonia, and/or aspiration. ACT 112: Negative or not required by law. Electronically signed by: Trip Little M.D. 11/20/2021 10:22 AM
[2021-11-20 10:29] LABS: Albumin Globulin Ratio 1.4 (0.9-2); Albumin Level 4.2 gm/dl (3.4-5.0); Bilirubin,Total 2.5 mg/dl (0.2-1.0); Calcium 9.6 mg/dl (8.5-10.1); Creatinine Clr Calc Pharmacy 38.9 ml/min; Est GFR (African American) 49.4 ml/min; Est GFR (Non-African American) 42.6 ml/min; Total Protein 7.2 gm/dl (6.0-8.3)
[2021-11-20] MEDS ORDERED: CEFEPIME 20 ML IV ONE (10:45)
[2021-11-20] MEDS ORDERED: AZITHROMYCIN 500 MG in DEXTROSE 5% 250 ML IV ONE (10:45)
[2021-11-20] MEDS ORDERED: methylPREDNISolone 125 MG/2 ML VIAL IV STA (12:37)
[2021-11-20] MEDS ORDERED: ALBUT/IPRATROP 3MG/0.5MG NEB 3 ML VIAL NEB STA (13:09)
[2021-11-20] MEDS ORDERED: ALBUT/IPRATROP 3MG/0.5MG NEB 3 ML VIAL ONE (13:09)
[2021-11-20] MEDS: ALBUT/IPRATROP 3MG/0.5MG NEB 3 ML VIAL NEB STA ×2 (14:19→14:26)
[2021-11-20 14:24] LABS: Base Excess VBG 7.8 mEq/L; HCO3 VBG 37 mmol/L; Oxygen Saturation VBG < 60.0 %; PCO2 VBG 71 mmHg (38-50); PO2 VBG 14 mmHg; pH VBG 7.32 (7.36-7.41)
[2021-11-20] MEDS ORDERED: SODIUM CHLORIDE 0.9% 1000ML 1,000 ML IV SCH (14:45)
--- NOTE | 2021-11-20 15:07 | XRay Report ---
XR chest 1V portable CLINICAL HISTORY: SOB TECHNIQUE: Single frontal radiograph of the chest was obtained. Comparison: Comparison is made to chest radiograph 11/20/2021 at 1005 hours FINDINGS: Median sternotomy wires are unchanged. Stable defibrillator. The cardiomediastinal silhouette is norm al. Continued prominence of right midlung airspace opacity, possibly more prominent than in prior exa m. There is mild pulmonary edema new from prior exam. There are trace bilateral pleural effusions. IMPRESSION: 1. Interval worsening of right mid lung airspace opacity may represent worsening atelectasis, pneumo fede or aspiration. 2. Cardiomegaly with mild pulmonary edema, increased from prior exam. 3. Small bilateral pleural effusions. ACT 112: Negative or not required by law. Electronically signed by: Trip Little M.D. 11/20/2021 3:05 PM
--- NOTE | 2021-11-20 15:10 | History & Physical Report ---
Date of Service November 20, 2021 Assessment & Plan (1) Acute exacerbation of chronic obstructive pulmonary disease (COPD): Plan: 66-year-old man with history of HFrEF, COPD, ischemic cardiomyopathy (s/p CABG, ICD), AAA, PAD, and chronic hyponatremia, recently admitted for acute exacerbation of chronic COPD, now readmitted for acute hypoxic respiratory failure secondary to acute exacerbation of chronic COPD. Acute on chronic hypoxic/hypercapnic resp failure -Desaturated to the 60s and 70s in the ED. Was briefly stabilized with nonrebreather mask, -Patient desaturated again to the 60s and was placed on high flow nasal cannula at 6 L. O2 sat has been in the 90s since. * Continue high flow O2 * O2 stepdown/wean as needed Acute exacerbation of chronic COPD -Patient recently admitted 11/17 for similar exacerbation. However, patient threatened to leave AMA and was discharged with home oxygen, as well as instructions for follow-up and medication plan. -Patient presented today with acutely worsening shortness of breath, fatigue, dizziness. - DuoNeb treatments x3, IV Solu-Medrol 125 mg x 1, IV azithromycin 500 mg x 1. -Notable labs: Lactate of 2.4, T bili of 2.5, AST/ALT92/138, [id number], [id number] (still down from last measured, already downtrending troponin from last [id number]). Procalcitonin negative. VBG: pH of 7.3, PCO2 of 71, indicating metabolic acidosis. Low suspicion for acute infectious process at this time. -Briefly discussed patient with case management, specifically possible referral to the office of aging due to nonadherence, possible psychosocial factors. * IV Solu-Medrol 40 mg every 6 hours. Consider spacing to every 8 hours in a.m. * DuoNebs every 2 hours. Spaced to every 6 hours if patient improves * P.o. azithromycin 250 mg (day 2/5) starting tomorrow * Pulmonary toilet: Incentive spirometry, flutter valve * AM lactate * Communicate with case management about possible referral to the Office of Aging. Permanent atrial fibrillation with RVR/HFrEF/ischemic cardiomyopathy -Metoprolol 50 mg every morning increased to 75 mg prior to discharge at last admission. Unclear if patient was adherent to regimen at all. -Patient is not on any anticoagulation as he is considered a high bleeding risk candidate, as well as known history of poor adherence. -Troponin elevated on admission, though is improved compared to last, already downtrending troponin at last admission -Suspect atrial fibrillation secondary to primary acute hypoxic respiratory process. * Metoprolol 75 mg daily * No anticoagulationSCDs * 1.5 L fluid restriction * Admitted to PCU * Consider cardiology consult should cardiac function begin to acutely worsen Acute kidney injury -Baseline creatinine appears to be <1. However, patient was discharged with creatinine of 1.24. Creatinine 1.45 at outpatient PCP hospital follow-up visit. -Patient on Lasix 40 mg every morning at home -Cr1.65 today on admission. GFR42.6 indicates CKD3. Bilateral 1+ pedal edema noted on exam. -Suspect prerenal SY (BUN/Cr ratio 40, pedal edema indicating poor venous return) * 500 mL IV NSS@80 mL/h * Holding home Lasix due to kidney injury. Holding other nephrotoxic meds. * Follow morning CBC Chronic hyponatremia * 1 g sodium chloride tabs 3 times daily. Elevated transaminases -Suspect hypoperfusion at this time, given acute elevation (patient's LFTs usually normal), normal alk phos, elevated lactate. * Follow morning CMP. No further intervention at this time Code: Full Dispo: PCU FEN/GI: NPO. Advance to heart healthy, pending bedside swallow assessment DVT Prophylaxis: SCDs PT/OT: Ordered (2) Hypoxemia: (3) Atrial fibrillation with RVR: (4) Atrial fibrillation with rapid ventricular response: (5) COPD (chronic obstructive pulmonary disease): (6) CHF (congestive heart failure): (7) SOB (shortness of breath): History of Present Illness Primary Care Provider: Riri Mosqueda MD Patient is a 68-year-old male with a history of A. fib with RVR, HFrEF, ischemic cardiomyopathy with ICD (history of CABG), AAA, peripheral artery disease (s/p stent), squamous cell carcinoma, depression, and chronic hyponatremia. Patient has been hospitalized twice over the last month (/02/2022; 11/14/2021 - 11/15/2021). On the most recent prior admission, he came in for worsening shortness of breath over 12 hours. He was treated for COPD exacerbation, peripheral edema, and superimposed A. fib with RVR. However, he threatened to leave AMA, and was discharged after being treated for home oxygen, with further instructions to continue home Lasix, complete p.o. prednisone taper, as well as adhere to changes to his medicines. Patient's PCP was also made aware of patient's admission, patient was urged to follow-up with them. Review of chart shows patient did in fact visit PCP twice since discharge. However patient had not initiated prednisone taper (received shot of prednisone in the office), nor had he been using his prescribed home supplemental oxygen. It is unclear whether or not he was taking his other medicines. BMP drawn at outpatient visit also revealed worsening creatinine of 1.45 (1.27 at discharge). Today, he presented to the ED complaining of acutely worsening shortness of breath and bilateral pedal edema since this morning. ED course notable for hypoxemia to the 70s and was immediately given supplemental oxygen via nonrebreather mask. CBC revealed elevated white count of 15.37 (largely unch anged patient is chronic use of prednisone). CXR showed faint midlung opacity) concerning for atelectasis vs. pneumonia vs. pneumonitis) but was otherwise unchanged from CXR at last admission. He received DuoNeb treatments x3, IV azithromycin 500 mg x1 IV cefepime x1, and IV Solu-Medrol 125 mg. Patient became agitated and attempted to leave AMA after being told he might require admission for further treatment. Hospitalist team was contacted to speak with patient, who eventually relented, and agreed to be admitted. Following this discussion, patient became somnolent and again desaturated to the 60s, and was placed on high flow nasal cannula at 6 L, where he remains at present. He denies chest pain, nausea, or vomiting, or abdominal pain. Patient was discussed with case management, with consideration for referral to the office of aging, due to nonadherence. Allergies Allergy/AdvReac Type Severity Reaction Status Date / Time No Known Allergies Allergy Verified 11/20/21 14:53 Home Medications Medication Instructions Recorded Confirmed Type aspirin 81 mg tablet,delayed 81 mg PO BID 06/04/19 11/20/21 History release (Adult Aspirin Regimen) gabapentin 600 mg tablet 600 mg PO QAM 09/22/21 11/20/21 History furosemide 40 mg tablet 40 mg PO QAM PRN 11/16/21 11/20/21 History metoprolol succinate 25 mg 75 mg PO QAM 11/16/21 11/20/21 History tablet,extended release 24 hr prednisone 20 mg tablet See Rx Instructions PO .COMPLEX 11/16/21 11/20/21 Rx #30 tab sildenafil 100 mg tablet (Viagra) 100 mg PO QAM PRN 11/16/21 11/20/21 History Past Med/Surg History Medical History Alcohol withdrawal Anemia Chronic- stable COPD (chronic obstructive pulmonary disease) Ischemic cardiomyopathy with implantable cardioverter-defibrillator (ICD) 05/2019 ECHO shows EF of 20-25% MEDTRONIC DEFIB IMPLANTED AFTER CABG X 3 in 2017 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, right cord reduced movement, glottic opening reduced - ENT has discussed with him a prophylactic trach which he has refused 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- CARDIAC ARREST WHILE DRIVING - HE WAS DEFIBRILLATED AT THE SCENE AND TAKEN TO [facility] AND THEN LIFEFLIGHTED TO [facility] On home O2 2L/at night Peripheral vascular disease HAS STENT IN RIGHT LEG Peripheral vascular disease Poor historian Surgical History History of cardiac cath HAD CATH AROUND 2006 WITH STENT; THEN IN 11/2016 HAD CATH WITH CABG X3 FOLLOW WITH [facility]; "not sure what kind of stents he has" History of coronary artery bypass graft 2017- CARABALLO to LAD, SVG to OM, SVG to PDA History of surgery on extremity RIGHT LEG AND HAD STENT PLACED 2016 History of throat surgery direct microlaryngoscopy with biopsies-06/25/2019-Dr. Jacquie Jiang of colonoscopy Family History Mother Diabetes Brother Hypertension Myocardial infarction Denies family history of Ovarian cancer Prostate cancer Breast cancer Colorectal cancer Social History Smoking Status: Current some day smoker Tobacco Type: Cigarettes Cigarettes Per Day: 5/day; Second Hand Exposure: No; Do You Dip or Chew Tobacco: No; Tobacco Cessation Education Requested by Patient: No Hx Alcohol Use: Yes Alcohol type: hard liquor Alcohol Intake Frequency Comment: 2-3 drinks a day Hx Substance Use: No Preferred Language: Persian Communication Ability: Effective Visual Impairment: No Limitations 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 Required: No Beliefs That Will Affect Care: None marital status: Single Current Living Situation: Alone current occupational status: retired Feels Safe at Home: Yes Safety Concerns: Feels Safe At This Time Childhood Exposure to Second-Hand Smoke: Yes caffeine: Yes Dental Care, Regularly: No Physical Activity Frequency: Daily Seatbelt Use: never Sunscreen Use: No Assistive Devices: Denture - Upper, Glasses and Oxygen - at Night Review of Systems Review of Systems: All systems reviewed & are unremarkable except as noted in HPI & below Physical Exam Physical Exam: General: Ill-appearing, drowsy but responsive man in respiratory distress. HEENT: Normocephalic, atraumatic. Moist mucosal membranes. Neck: Supple. No lymphadenopathy. Normal ROM. CV: Regular rate and rhythm. Normal S1 and S2. No murmurs gallops or rubs. 1+ bilateral pedal edema at ankles. Respiratory: Poor respiratory effort. Lungs crackly and rhonchorous on auscultation. Abdomen: Soft, nondistended abdomen. No tenderness to deep palpation. No guarding or rebound. Skin: Intact, without rashes, lesions, or erythema. Results & Data Results & Data ([facility]) Vital Signs (Past 12 Hours) Vital Signs Temp Pulse Resp BP BP Pulse Ox 11/20/21 14:27 126 H 22 96/79 L 98 11/20/21 14:21 138 H 20 96 11/20/21 14:10 135 H 24 107/85 70 L 11/20/21 13:34 135 H 24 127/75 95 11/20/21 13:14 127 H 24 96/66 L 97 11/20/21 12:23 125 H 20 108/84 98 11/20/21 11:43 36.1 C L 11/20/21 11:25 122 H 20 108/79 98 11/20/21 10:58 119 H 20 122/83 98 11/20/21 10:31 122 H 20 121/78 99 11/20/21 09:50 94 11/20/21 09:30 119 H 22 124/96 93 11/20/21 09:20 36 C L 20 115/67 Code Status & VTE Plan VTE Prophylaxis Plan VTE Prophylaxis will be ordered: Yes Supervising Physician Co-Signing Physician Notes Resident Physician Supervision Note: I independently interviewed and examined the patient and verified the cummins history and physical, reviewed labs and image studies and agree with resident Dr. Díaz findings and care plan. Resident Activity Tracking Resident Involvement: Resident Care Provided Care Provided: Adult Hospital Medicine (1) CHF (congestive heart failure) Heart failure chronicity: unspecified Heart failure type: unspecified Qualified Code(s): I50.9 - Heart failure, unspecified
[2021-11-20] MEDS: methylPREDNISolone 40 MG in SYRINGE 0 ML IV SCH (20:52)
[2021-11-20] MEDS: GABAPENTIN 600 MG TAB PO SCH (21:02)
--- NOTE | 2021-11-20 23:20 | Communication Note ---
Date of Service: November 20, 2021 Messaged by nursing about discrepancy between home med doses ordered and what patient believes he takes at home. Per patient, he believes he stopped the salt tab a while ago and takes gabapentin BID. Patient was given tomorrow morning's AM dose early/unscheduled. I have instructed patient to continue the salt tabs per his last PCP note and per his chronic hyponatremia. Will defer to day team to look at gabapentin regimen. Up until 11/03/21 PCP visit, he was on gabapentin 600mg QID. After 11/10/21 ED visit, med list shows qAM. This change does not appear to have been made by the PCP.
[2021-11-21] MEDS: methylPREDNISolone 40 MG in SYRINGE 0 ML IV SCH ×4 (03:04→20:30)
--- NOTE | 2021-11-21 07:24 | Hospitalist Progress Note ---
Date of Service November 21, 2021 Assessment & Plan (1) Acute exacerbation of chronic obstructive pulmonary disease (COPD): Plan: 66-year-old man with history of HFrEF, COPD, ischemic cardiomyopathy (s/p CABG, ICD), AAA, PAD, and chronic hyponatremia, recently admitted for acute exacerbation of chronic COPD, now readmitted for acute hypoxic respiratory failure secondary to acute exacerbation of chronic COPD. Acute exacerbation of chronic COPD - recurrent admission -Patient recently admitted 11/17 for similar exacerbation. However, patient threatened to leave AMA and was discharged with home oxygen, as well as instructions for follow-up and medication plan. -Patient presented today with acutely worsening shortness of breath, fatigue, dizziness. -Desaturated to the 60s and 70s in the ED. Was briefly stabilized with nonrebreather mask, DuoNeb treatments x3, IV Solu-Medrol 125 mg x 1, IV azithromycin 500 mg x 1. -Patient desaturated again to the 60s and was placed on high flow nasal cannula at 6 L. O2 sat has been in the 90s since. -Notable labs: Lactate of 2.4, T bili of 2.5, AST/ALT92/138, [id number], chfwjfau57.1 (still down from last measured, already downtrending troponin from last [id number]). Procalcitonin negative. VBG: pH of 7.3, PCO2 of 71, indicating metabolic acidosis. Low suspicion for acute infectious process at this time. -Briefly discussed patient with case management, specifically possible referral to the office of aging due to nonadherence, possible psychosocial factors. -Lactate today 2.4, down from 3.2 yesterday. -Stepped down to 6 L nasal cannula overnight. Now satting 92% on room air. * IV Solu-Medrol 40 mg every 6 hours. Plan to space to every 8 hours after 24 hours. * DuoNebs every 2 hours. * As needed albuterol every 2 hours. * P.o. azithromycin 250 mg (day 2) * Pulmonary toilet: Incentive spirometry, flutter valve as needed. Permanent atrial fibrillation with RVR/HFrEF/ischemic cardiomyopathy -Metoprolol 50 mg every morning increased to 75 mg prior to discharge at last admission. Unclear if patient was adherent to regimen at all. -Patient is not on any anticoagulation as he is considered a high bleeding risk candidate, as well as known history of poor adherence. -Troponin elevated on admission, though is improved compared to last, already downtrending troponin at last admission -Suspect atrial fibrillation secondary to primary acute hypoxic respiratory process. -Admitted to PCU. Consider stepdown to MedSurg with telemetry tomorrow. * Metoprolol 75 mg daily * No anticoagulationSCDs * 1.5 L fluid restriction * Consider cardiology consult should cardiac function begin to acutely worsen Acute kidney injury -Baseline creatinine appears to be <1. However, patient was discharged with creatinine of 1.24. Creatinine 1.45 at outpatient PCP hospital follow-up visit. -Patient on Lasix 40 mg every morning at home -Cr 1.65 today on admission. GFR42.6 indicates CKD3. Bilateral 1+ pedal edema noted on exam. -Suspect prerenal SY (BUN/Cr ratio 40, pedal edema indicating poor venous return) -Unable to trend a.m. BMP this morning, as patient refused morning labs. * Received 500 mL IV NSS@80 mL/h * Holding home Lasix due to kidney injury. Holding other nephrotoxic meds. * Follow morning bmp Chronic hyponatremia * 1 g sodium chloride tabs 3 times daily. Elevated transaminases -Suspect hypoperfusion at this time, given acute elevation (patient's LFTs usually normal), normal alk phos, elevated lactate. * Follow morning CMP. No further intervention at this time Code: Full Dispo: PCU FEN/GI: NPO. Advance to heart healthy, Easy to chew. DVT Prophylaxis: SCDs PT/OT: Ordered Admission and Anticipated Discharge Date Admission Date: November 20, 2021 Supervising Physician Co-Signing Physician Notes Resident Physician Supervision Note: I independently interviewed and examined the patient and verified the cummins history and physical, reviewed labs and image studies and agree with resident Dr. Díaz findings and care plan. Subjective Patient is awake and seen in bed this morning. Patient wants to leave by noon today. Review of Systems Review of Systems: All systems reviewed & are unremarkable except as noted in HPI & below Physical Exam Physical Exam: General: Gaunt, otherwise calm appearing man in no acute distress. HEENT: Normocephalic, atraumatic. EOM intact. Good conjugate gaze. Nares patent. Moist mucosal membranes. Neck: Supple. No lymphadenopathy. Normal ROM. CV: Regular rate and rhythm. Normal S1, S2. No murmurs, gallops or rubs. 1+ pedal edema at the ankles R >L. Respiratory: Normal respiratory effort. Stridor, bibasilar crackles, rhonchi all heard on auscultation. Patient able to talk in complete sentences at rest. However, has coughing fit with minimal exertion. Abdomen: Soft, nondistended abdomen. No bruits heard on auscultation. No tenderness to deep palpation. No guarding or rebound. Extremities: Normal tone and ROM. Strength and sensation intact. Capillary refill <2 sec. 2+ dp equal bilaterally. Results & Data Results & Data ([facility]) Vital Signs (Past 12 Hours) Vital Signs Temp Pulse Resp BP Pulse Ox 11/21/21 03:17 36.5 C 100 H 16 113/75 99 11/20/21 23:08 36.4 C L 110 H 24 109/77 100 11/20/21 19:27 36.4 C L 114 H 24 116/83 96 Resident Activity Tracking Resident Involvement: Resident Care Provided Care Provided: Adult Hospital Medicine
[2021-11-21] MEDS: AZITHROMYCIN 250 MG TAB PO SCH (09:15)
[2021-11-21] MEDS: SODIUM CHLORIDE 1 GM TABLET PO SCH ×4 (09:16→21:20)
[2021-11-21] MEDS: METOPROLOL SUCC 25MG EXT REL TAB PO SCH (09:16)
[2021-11-21] MEDS: GABAPENTIN 600 MG TAB PO SCH ×3 (09:26→21:20)
[2021-11-21] MEDS ORDERED: ASPIRIN 81 MG ECTAB PO SCH (21:00)
[2021-11-21] MEDS: ALBUT/IPRATROP 3MG/0.5MG NEB 3 ML VIAL NEB PRN (21:45)
[2021-11-22] MEDS: methylPREDNISolone 40 MG in SYRINGE 0 ML IV SCH ×2 (02:44→07:59)
[2021-11-22] MEDS: ALBUT/IPRATROP 3MG/0.5MG NEB 3 ML VIAL NEB PRN ×2 (03:10→08:17)
--- NOTE | 2021-11-22 06:51 | Hospitalist Progress Note ---
Date of Service November 22, 2021 Assessment & Plan (1) Acute exacerbation of chronic obstructive pulmonary disease (COPD): Plan: 66-year-old man with history of HFrEF, COPD, ischemic cardiomyopathy (s/p CABG, ICD), AAA, PAD, and chronic hyponatremia, recently admitted for acute exacerbation of chronic COPD, now readmitted for acute hypoxic respiratory failure secondary to acute exacerbation of chronic COPD. Acute exacerbation of chronic COPD - recurrent admission -Patient recently admitted 11/17 for similar exacerbation. However, patient threatened to leave AMA and was discharged with home oxygen, as well as instructions for follow-up and medication plan. -Patient presented today with acutely worsening shortness of breath, fatigue, dizziness. -Desaturated to the 60s and 70s in the ED. Was briefly stabilized with nonrebreather mask, DuoNeb treatments x3, IV Solu-Medrol 125 mg x 1, IV azithromycin 500 mg x 1. -Patient desaturated again to the 60s and was placed on high flow nasal cannula at 6 L. O2 sat has been in the 90s since. -Notable labs: Lactate of 2.4, T bili of 2.5, AST/ALT92/138, [id number], aacdozed60.1 (still down from last measured, already downtrending troponin from last [id number]). Procalcitonin negative. VBG: pH of 7.3, PCO2 of 71, indicating metabolic acidosis. Low suspicion for acute infectious process at this time. -Briefly discussed patient with case management, specifically possible referral to the office of aging due to nonadherence, possible psychosocial factors. -Lactate today 2.4, down from 3.2 yesterday. -Stepped down to 6 L nasal cannula overnight. Now satting 92% on room air. -IV Solu-Medrol 40 mg every 6 hours. Plan to space to every 8 hours after 24 hours. -DuoNebs every 2 hours. -As needed albuterol every 2 hours. -P.o. azithromycin 250 mg (day 3/) -Pulmonary toilet: Incentive spirometry, flutter valve as needed. Permanent atrial fibrillation with RVR/HFrEF/ischemic cardiomyopathy -Metoprolol 50 mg every morning increased to 75 mg prior to discharge at last admission. Unclear if patient was adherent to regimen at all. -Patient is not on any anticoagulation as he is considered a high bleeding risk candidate, as well as known history of poor adherence. -Troponin elevated on admission, though is improved compared to last, already downtrending troponin at last admission -Suspect atrial fibrillation secondary to primary acute hypoxic respiratory process. -Admitted to PCU. Consider stepdown to MedSurg with telemetry tomorrow. -Metoprolol 75 mg daily -No anticoagulationSCDs -1.5 L fluid restriction -Consider cardiology consult should cardiac function begin to acutely worsen Acute kidney injury -Baseline creatinine appears to be <1. However, patient was discharged with creatinine of 1.24. Creatinine 1.45 at outpatient PCP hospital follow-up visit. -Patient on Lasix 40 mg every morning at home -Cr 1.65 today on admission. GFR42.6 indicates CKD3. Bilateral 1+ pedal edema noted on exam. -Suspect prerenal SY (BUN/Cr ratio 40, pedal edema indicating poor venous return) -Unable to trend a.m. BMP this morning, as patient refused morning labs. -Received 500 mL IV NSS@80 mL/h -Holding home Lasix due to kidney injury. Holding other nephrotoxic meds. -Follow morning bmp Chronic hyponatremia -1 g sodium chloride tabs 3 times daily. Elevated transaminases -Suspect hypoperfusion at this time, given acute elevation (patient's LFTs usually normal), normal alk phos, elevated lactate. -Follow morning CMP. No further intervention at this time Code: Full Dispo: PCU FEN/GI: NPO. Advance to heart healthy, Easy to chew. DVT Prophylaxis: SCDs PT/OT: Ordered Admission and Anticipated Discharge Date Admission Date: November 20, 2021 Review of Systems Constitutional: as per Subjective / HPI Results & Data Results & Data ([facility]) Vital Signs (Past 12 Hours) Vital Signs Temp Pulse Pulse Resp BP BP Pulse Ox 11/22/21 03:10 113 H 20 94 11/22/21 02:48 36.4 C L 105 H 16 117/76 92 11/22/21 00:00 111 H 11/21/21 23:15 36.3 C L 121 H 20 123/87 91 11/21/21 21:46 94 H 20 95 11/21/21 21:13 34.5 C L 105 H 18 128/78 91
[2021-11-22] MEDS: GABAPENTIN 600 MG TAB PO SCH (07:59)
[2021-11-22] MEDS: AZITHROMYCIN 250 MG TAB PO SCH (07:59)
[2021-11-22] MEDS: METOPROLOL SUCC 25MG EXT REL TAB PO SCH (07:59)
[2021-11-22] MEDS: SODIUM CHLORIDE 1 GM TABLET PO SCH (08:03)
--- NOTE | 2021-11-22 09:29 | Electrocardiogram Report ---
Test Reason : Blood Pressure : / mmHG Vent. Rate : 128 BPM Atrial Rate : 153 BPM P-R Int : 000 ms QRS Dur : 120 ms QT Int : 350 ms P-R-T Axes : 000 079 163 degrees QTc Int : 511 ms Atrial fibrillation with rapid ventricular response Incomplete left bundle block Inferior infarct Prolonged QT Abnormal ECG When compared with ECG of 15-NOV-2021 09:02, No significant change was found Confirmed by Rico Troy ([id number]) on 11/22/2021 9:28:43 AM Referred By: REFERRED SELF Confirmed By:Rico Troy
--- NOTE | 2021-11-22 14:43 | Discharge Summary ---
Date of Service November 22, 2021 Admission HPI Per Admitting Provider Patient is a 68-year-old male with a history of A. fib with RVR, HFrEF, ischemic cardiomyopathy with ICD (history of CABG), AAA, peripheral artery disease (s/p stent), squamous cell carcinoma, depression, and chronic hyponatremia. Patient has been hospitalized twice over the last month (/02/2022; 11/14/2021 - 11/15/2021). On the most recent prior admission, he came in for worsening shortness of breath over 12 hours. He was treated for COPD exacerbation, peripheral edema, and superimposed A. fib with RVR. However, he threatened to leave AMA, and was discharged after being treated for home oxygen, with further instructions to continue home Lasix, complete p.o. prednisone taper, as well as adhere to changes to his medicines. Patient's PCP was also made aware of patient's admission, patient was urged to follow-up with them. Review of chart shows patient did in fact visit PCP twice since discharge. However patient had not initiated prednisone taper (received shot of prednisone in the office), nor had he been using his prescribed home supplemental oxygen. It is unclear whether or not he was taking his other medicines. BMP drawn at outpatient visit also revealed worsening creatinine of 1.45 (1.27 at discharge). Today, he presented to the ED complaining of acutely worsening shortness of breath and bilateral pedal edema since this morning. ED course notable for hypoxemia to the 70s and was immediately given supplemental oxygen via nonrebreather mask. CBC revealed elevated white count of 15.37 (largely unchanged patient is chronic use of prednisone). CXR showed faint midlung opacity) concerning for atelectasis vs. pneumonia vs. pneumonitis) but was otherwise unchanged from CXR at last admission. He received DuoNeb treatments x3, IV azithromycin 500 mg x1 IV cefepime x1, and IV Solu-Medrol 125 mg. Patient became agitated and attempted to leave AMA after being told he might require admission for further treatment. Hospitalist team was contacted to speak with patient, who eventually relented, and agreed to be admitted. Following this discussion, patient became somnolent and again desaturated to the 60s, and was placed on high flow nasal cannula at 6 L, where he remains at present. He denies chest pain, nausea, or vomiting, or abdominal pain. Patient was discussed with case management, with consideration for referral to the office of aging, due to nonadherence. Admission Exam Per Admitting Provider General: Ill-appearing, drowsy but responsive man in respiratory distress. HEENT: Normocephalic, atraumatic. Moist mucosal membranes. Neck: Supple. No lymphadenopathy. Normal ROM. CV: Regular rate and rhythm. Normal S1 and S2. No murmurs gallops or rubs. 1+ bilateral pedal edema at ankles. Respiratory: Poor respiratory effort. Lungs crackly and rhonchorous on auscultation. Abdomen: Soft, nondistended abdomen. No tenderness to deep palpation. No guarding or rebound. Skin: Intact, without rashes, lesions, or erythema. Principal Diagnosis COPD exacerbation. Discharge Exam Constitutional WD/WN, vitals as above Eyes PERRL, conjunctivae normal, anicteric sclerae Respiratory Mild inspiratory wheeze bilaterally, expiratory rhonchi bilaterally. Cardiovascular Irregularly irregular, S1 and S2, no murmurs. Psychiatric A+Ox3, euthymic affect Discharge Data Allergies Allergy/AdvReac Type Severity Reaction Status Date / Time No Known Allergies Allergy Verified 11/20/21 14:53 Hospital Course (1) Acute exacerbation of chronic obstructive pulmonary disease (COPD): 66-year-old man with history of HFrEF, COPD, ischemic cardiomyopathy (s/p CABG, ICD), AAA, PAD, and chronic hyponatremia, recently admitted for acute exacerbation of chronic COPD, now readmitted for acute hypoxic respiratory failure secondary to acute exacerbation of chronic COPD. Acute exacerbation of chronic COPD - recurrent admission -Patient recently admitted 11/17 for similar exacerbation. However, patient threatened to leave A and was discharged with home oxygen, as well as instructions for follow-up and medication plan. -Patient presented with acutely worsening shortness of breath, fatigue, dizziness. -Desaturated to the 60s and 70s in the ED. Was briefly stabilized with nonrebreather mask, DuoNeb treatments x3, IV Solu-Medrol 125 mg x 1, IV azithromycin 500 mg x 1. -Patient desaturated again to the 60s and was placed on high flow nasal cannula at 6 L. -Notable labs: Lactate of 2.4, T bili of 2.5, AST/ALT92/138, [id number], [id number] (still down from last measured, already downtrending troponin from last [id number]). Procalcitonin negative. VBG: pH of 7.3, PCO2 of 71, indicating metabolic acidosis. Low suspicion for acute infectious process at this time. -Briefly discussed patient with case management, specifically possible referral to the office of aging due to nonadherence, possible psychosocial factors - patient did not want to go forward with those resources. -Saturating 90-95% on RA before leaving. -Prednisone taper sent to pharmacy at 60mg for home. (Decrease by 10mg every 2 days). -Sent 2 days of oral Azithromycin to patient's pharmacy 250mg daily to finish up 5 day regimen. -Will reach out to patient's pharmacy/PCP office for cheaper options for inhalers (LABA/LAMA/ICS) or samples. -Encouraged smoking cessation, especially while lungs healing from exacerbation. -Encouraged patient to frequently check oxygen saturations daily and supplement oxygen if O2 sats are low. Permanent atrial fibrillation with RVR/HFrEF/ischemic cardiomyopathy -Metoprolol 50 mg every morning increased to 75 mg prior to discharge at last admission. Unclear if patient was adherent to regimen at all. -Patient is not on any anticoagulation as he is considered a high bleeding risk candidate, as well as known history of poor adherence. -Troponin elevated on admission, though is improved compared to last. -Suspect atrial fibrillation secondary to primary acute hypoxic respiratory process. Acute kidney injury -Baseline creatinine appears to be <1. However, patient was discharged with creatinine of 1.24. Creatinine 1.45 at outpatient PCP hospital follow-up visit. -Patient on Lasix 40 mg every morning at home -Cr 1.65 today on admission. GFR42.6 indicates CKD3. Bilateral 1+ pedal edema noted on exam. -Suspect prerenal SY (BUN/Cr ratio 40, pedal edema indicating poor venous return) -Unable to trend a.m. BMP this morning, as patient refused morning labs. -Received 500 mL IV NSS@80 mL/h -Patient will need follow up CMP for kidney function Elevated transaminases -Suspect hypoperfusion at this time, given acute elevation (patient's LFTs usually normal), normal alk phos, elevated lactate. -CMP for recheck of liver enzymes. No further intervention at this time. Total Time Total Time Spent Total Time Spent (In Minutes): Please see attending attestation. Discharge Plan Discharge Items Patient Disposition: Home - Self-Care Reason For Visit: COPD EXACERBATION Discharge Diagnosis: COPD Exacerbation Activity: Per Instructions section Non-emergency contact: Primary Care Provider and [employer]ician Call non-emergency contact if: your symptoms worsen, your pain is worsening and your temperature is above 101 Follow-up/Referrals: Riri Mosqueda MD [Primary Care Provider] - 12/02/21 11:30 am Diet: Regular Addtl Attending Provider Instructions: A discharge summary will be sent to your primary care physician to ensure continuity of care. You came to the hospital due to difficulty breathing and the need for supplemental oxygen. This was due to your chronic obstructive pulmonary disease. You were started on steroids IV, Azithromycin, as well as inhalers for your breathing. Over the course of your stay your breathing improved with these treatments. It is important for you to continue the treatments for full duration to prevent further degradation of your breathing. We will be contacting your pharmacy to check for the availability of inhalers that may be covered by your insurance. It is important for you to continue using inhalers for your breathing to help prevent further exacerbations. It is also important for you to increase the frequency of oxygen saturation checks at home so that if your oxygen is running low you may use the supplemental oxygen you have at home. If you find your oxygen going below 90% then you should be using your supplemental oxygen to prevent oxygen depravation from your organs. Again, it is important for you to check your oxygen saturation even if you feel fine since your oxygen may run chronically low. Follow-up: * You should be seen by your primary physician within the next week. Medications: Your medication list has been reviewed and reconciled upon discharge to ensure accuracy and continuity of care. An updated list of all your medications is included with your hospital discharge paperwork. Please review this list closely, and make note of any changes. * Please continue taking the Azithromycin every morning for the next 2 days. A prescription was sent to your pharmacy. * You will be given a steroid taper to finish off the course of steroids for this COPD exacerbation. You will be given prednisone in the form of 10mg pills. Please take 60mg of prednisone over the next 3 days, then go down to 50mg for the next 3 days, decreasing the amount of prednisone by 10mg every 3 days until you run out. Take your medications as instructed; do not skip a dose of your medicines. Make sure all of your doctors know every medicine you are taking (including [id number] medicines, vitamins, and supplements). let your primary care provider know before taking any new medicines because some of these may interact with your current medications, or may make your symptoms worse. CONTACT YOUR PRIMARY CARE PROVIDER if you experience any of the following: * Fevers or shaking chills * Shortness of breath not relieved by inhalers, fainting * Sudden abdominal distension not relieved by catheterization. * Difficulty following your treatment plan, or difficulty taking medications CALL 911 OR GO TO THE EMERGENCY DEPARTMENT if you experience any of the following: * Sudden, severe abdominal pain or nausea/vomiting * Severe chest pain, or chest pain that radiates (moves) to your jaw or arm * Sudden, severe shortness of breath or difficulty breathing It was was our pleasure taking care of you here at [facility] . Thank you for allowing us to participate in your care. Pending Studies at Discharge: No Stand-Alone Forms: My [facility], Smoking Cessation Medications and DC Order Prescriptions: New azithromycin 250 mg tablet 250 mg PO DAILY 2 Days Qty: 2 RF: 0 prednisone 10 mg tablet 10 mg PO .custom 12 Days Qty: 42 RF: 0 Continued aspirin [Adult Aspirin Regimen] 81 mg tablet,delayed release (DR/EC) 81 mg PO BID RF: 0 furosemide 40 mg tablet 40 mg PO QAM PRN (Reason: weight gain) RF: 0 sildenafil [Viagra] 100 mg tablet 100 mg PO QAM PRN (Reason: sexual activity) RF: 0 metoprolol succinate 25 mg tablet extended release 24 hr 75 mg PO QAM RF: 0 gabapentin 600 mg tablet 600 mg PO QAM RF: 0 Discontinued prednisone 20 mg tablet See Rx Instructions PO .COMPLEX Qty: 30 RF: 0 Discharge Orders: Discharge Order (Routine); Ordered 11/22/21 Ordered By: Dk Short Admission Data Admit Date/Time: 11/20/21 14:18 Attending Provider: Henrry Miranda Admit Provider: Charmaine Díaz Primary Care Provider: Riri Mosqueda Other Providers: Kathie Valladares Other Interventions: Discharge Summary Assessment (RN) Last Done: 11/22/21 12:10 Supervising Physician Co-Signing Physician Notes I personally examined the patient and verified all cummins points of history and exam, discussed case, and agree with decision making with Dr Short Planning on going home. Had initially told resident physician he was leaving at noon, we then got called by nursing that he said he was leaving at 11 AM. Was able to catch him before he left the hospital. Vitals noted, in general he is awake and alert pleasant no distress. Breathing unlabored no accessory muscle use good effort. Skin shows no rashes no pallor or icterus. Neuro with no focal deficits. Exam otherwise as above. Ongoing hypoxia/ongoing COPD exacerbationsuspect a lot of it is from nonadherence. We have recommended multiple times that he use home oxygenshe has not until recentlywhen he only started using it at bedtime. He does have a pulse ox at home but he only checks maybe once a day or soand it does appear that he probably would benefit from more constant oxygen at home. We discussed this, and discussed following his pulse ox more closely so that he can remedy this with extra oxygen more often. Discussed use of inhalershe notes he cannot afford things. Resident physician is going to call the pharmacywith the being 22 November he was unable to get a hold of anybody to [place] check, but will tomorrow, also discussed for patient to go to the office to see what samples are availableideally he would be on an anticholinergic, long-acting beta agonist, inhaled corticosteroid. Prednisoneprolonged taperfinish Zithromax as well. Discussed with patient quite frankly that doing the same thing (i.e. not really following through with treatment) and anticipating a different result is not likely to help him. Resident Activity Tracking Resident Involvement: Resident Care Provided Care Provided: Adult Hospital Medicine
--- NOTE | 2021-11-22 17:34 | Billing Data ---
Date of Service November 22, 2021 Coding Level of Care Code D/C DAY MANAGEMENT <30 MINS
--- NOTE | 2021-11-24 19:59 | Communication Note ---
Date of Service: November 24, 2021 Called patient's pharmacy, [facility] in the hopes they would be able to shed light on any prescription inhalers LABA/LAMA/ICS that patient might be able to afford. Spoke with pharmacist Semaj telling him patient would only be able to pay up to $10 per prescription. Told the cheapest inhaler would be a rescue inhaler which would cost ~$24 and other inhalers with LAMA/ICS may cost up to $80. He stated likely the best way patient would be able to obtain inhaler products would be through samples from his PCP office. The patient had a prescription for rescue inhaler sent to the pharmacy from his last discharge however never picked it up. Pharmacist Semaj said he would be happy to help with any other information if we had any other questions however there was no combo of prescription inhalers that would work out to the patient's [place] range, unfortunately.
== END 2021-11-22 14:27 | disposition home or self-care (01) | DRG 190 ==
LOC: ED 09:11 → SUATTDRO 14:18 → 2S 14:18

== ENCOUNTER 2021-12-17 00:17 | Inpatient (IN) ==
[2021-12-17 01:06] LABS: INR 1.2 (0.9-1.1); Partial Thromboplastin Ratio 0.9; Partial Thromboplastin Time 24.3 Seconds (21.0-31.0); Prothrombin Time 12.2 Seconds (9.0-12.0)
[2021-12-17 01:15] LABS: Hematocrit (blood only) 31.4 % (40.1-51.0); Hemoglobin 10.5 g/dl (14.0-18.0); Mean Corpuscular Hemoglobin 32.7 pg (25.0-34.0); Mean Corpuscular Hgb Conc 33.4 g/dL (32.0-36.0); Mean Corpuscular Volume 97.8 fL (80.0-100.0); Mean Platelet Volume 11.4 fL (9.4-12.4); Platelet Count 87 K/uL (130-400); RDW Coefficient of Variation 16.5 % (11.5-14.5); Red Blood Count 3.21 M/uL (4.63-6.08); White Blood Count 8.46 K/ul (4.8-10.8)
[2021-12-17 01:16] LABS: Basophils # (auto) 0.01 K/uL (0-0.2); Basophils % (auto) 0.1 %; Immature Granulocytes # (auto) 0.08 K/uL (0.00-0.02); Immature Granulocytes % (auto) 0.9 %; Lymphocytes # (auto) 0.38 K/uL (1.2-3.4); Lymphocytes % (auto) 4.5 %; Monocytes % (auto) 10.6 %; Neutrophils # (auto) 7.09 K/uL (1.4-6.5); Neutrophils % (auto) 83.9 %; Platelet Estimate Decreased (Normal)
[2021-12-17 01:18] LABS: Albumin Globulin Ratio 1.5 (0.9-2); Albumin Level 3.4 gm/dl (3.4-5.0); BUN Creatinine Ratio 30.1 (10-20); Bilirubin,Total 1.4 mg/dl (0.2-1.0); Calcium 8.8 mg/dl (8.5-10.1); Creatinine Clr Calc Pharmacy 44.3 ml/min; Est GFR (African American) 57.3 ml/min; Est GFR (Non-African American) 49.4 ml/min; Globulin 2.2 gm/dl (2.5-4.0); Potassium 3.5 mmol/L (3.5-5.1); Total Protein 5.6 gm/dl (6.0-8.3)
[2021-12-17] MEDS ORDERED: ALBUT/IPRATROP 3MG/0.5MG NEB 3 ML VIAL ONE (02:00)
[2021-12-17] MEDS ORDERED: methylPREDNISolone 125 MG/2 ML VIAL IV STA (02:31)
[2021-12-17] MEDS ORDERED: STAT IV Infusion **Titration per Protocol STA ×2 (02:31→09:20)
[2021-12-17] MEDS ORDERED: LEVALBUTEROL HCL 1.25 MG/3 ML NEB NEB STA (02:31)
[2021-12-17] MEDS ORDERED: SODIUM CHLORIDE 0.9% 1000ML 1,000 ML IV SCH (02:45)
[2021-12-17] MEDS ORDERED: XOPENEX/ATROVENT 1.25mg/0.5MG NEB COMBO NEB STA (03:51)
[2021-12-17] MEDS: dilTIAZem HCL 125 MG in DEXTROSE 5% 100 ML IV SCH ×2 (03:56→21:14)
[2021-12-17 04:19] LABS: Influenza A virus by PCR Negative (Neg); Influenza B virus by PCR Negative (Neg); RSV by PCR Negative (Neg); SARS CoV2 RNA(COVID-19) InHosp NEGATIVE (Negative)
[2021-12-17] MEDS ORDERED: AZITHROMYCIN 500 MG in DEXTROSE 5% 250 ML IV ONE (05:36)
--- NOTE | 2021-12-17 06:25 | History & Physical Report ---
Date of Service December 17, 2021 Assessment & Plan (1) Atrial fibrillation with RVR: Plan: Patient presented in AF with RVR. Initiated on Diltiazem drip in ER -Admit to PCU -Continue home Metoprolol -Continue Diltiazem for now, wean as tolerated -Continue Apixaban anticoagulation (2) COPD (chronic obstructive pulmonary disease): Plan: Suspect acute exacerbation of COPD contributing to overall clinical picture. BiPAP placed in ER. Patient has been refusing ABGs up until now. Concerning as he is now appearing somewhat somnolent -Obtain ABG Now or VBG if arterial isn't obtainable -DuoNeb q 4 hours -Albuterol q 2 hours PRN -Solumedrol 30mg TID -Azithromycin -Flutter, IS -Continue Fluticasone/Umecli/Vilanterol -Check Procalcitonin and BNP to see if infection or fluid are contributing to patient's respiratory status (3) Pulmonary embolism: Plan: Newly diagnosed at [facility] earlier this month. Patient was started on an ticoagulation with Apixaban -Continue Apixaban 5mg po BID (4) ETOH abuse: Plan: Uncertain how much patient is drinking -Check EtoH level -AWSS at risk -Thiamine/Folate daily (5) CHF (congestive heart failure): Plan: Patient with HFrEF secondary to ICM. Most recent EF 20-15% on echo from [facility]. History of VT/VF with ICD in place. -Lasix 20mg IV now -Monitor I/Os, weights -Check BNP -Continue Metoprolol History of Present Illness Chief Complaint: shortness of breath Primary Care Provider: Riri Mosqueda MD Rafael Pearl is a 66yo male with history of COPD on home O2 2L, HFrEF secondary to ICM with EF of 20-25% per echo 11/29/21, AICD in place for history of VT/VF, AF, PE presenting with shortness of breath. Patient provides very little history at this time - BiPAP in place, somnolent. Patient found to be in atrial fibrillation with RVR on arrival - rate of 127. He was started on a Cardizem drip for rate control. Tachypneic, saturating 89% on his baseline 2L NC. Placed on BiPAP. Patient refusing ABGs No additional complaints on limited interview. Patient reports breathing feels better. He denies chest pain, abdominal pain, nausea, vomiting or diarrhea. ER Course: Diltiazem, NSS at 80mL/hr, Xopenex, Solumedrol 60mg IV Allergies Allergy/AdvReac Type Severity Reaction Status Date / Time No Known Allergies Allergy Verified 12/10/21 15:31 Home Medications Medication Instructions Recorded Confirmed Type aspirin 81 mg tablet,delayed 81 mg PO BID 06/04/19 12/10/21 History release (Adult Aspirin Regimen) gabapentin 600 mg tablet 600 mg PO QAM 09/22/21 12/10/21 History furosemide 40 mg tablet 40 mg PO QAM PRN weight gain 11/16/21 12/10/21 History metoprolol succinate 25 mg 75 mg PO QAM 11/16/21 12/10/21 History tablet,extended release 24 hr sildenafil 100 mg tablet (Viagra) 100 mg PO QAM PRN sexual activity 11/16/21 12/10/21 History apixaban 5 mg tablet (Eliquis) See Rx Instructions PO BID #88 tabs 12/02/21 12/10/21 Rx Portable Oxygen #1 ea 12/06/21 12/10/21 Rx albuterol sulfate 90 mcg/actuation 2 puff inhalation Q6H PRN 12/06/21 12/10/21 Rx aerosol inhaler Shortness Of Breath Or Wheezing #18 grams fluticasone fur. 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, right cord reduced movement, glottic opening reduced - ENT has discussed with him a prophylactic trach which he has refused 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- CARDIAC ARREST WHILE DRIVING - HE WAS DEFIBRILLATED AT THE SCENE AND TAKEN TO [facility] AND THEN [facility]IGHT[facility] TO [facility] On home O2 2L/at night Peripheral vascular disease HAS STENT IN RIGHT LEG Peripheral vascular disease Poor historian Pulmonary embolism Dx'd at [facility] [place]/28/21 Surgical History History of cardiac cath HAD CATH AROUND 2006 WITH STENT; THEN IN 11/2016 HAD CATH WITH CABG X3 FOLLOW WITH [facility]; "not sure what kind of stents he has" History of coronary artery bypass graft 2017- CARABALLO to LAD, SVG to OM, SVG to PDA History of surgery on extremity RIGHT LEG AND HAD STENT PLACED 2016 History of throat surgery direct microlaryngoscopy with biopsies-06/25/2019-Dr. Jacquie Jiang of colonoscopy Family History Mother Diabetes Brother Hypertension Myocardial infarction Denies family history of Ovarian cancer Prostate cancer Breast cancer Colorectal cancer Social History Smoking Status: Current every day smoker Tobacco Type: Cigarettes Cigarettes Per Day: 5/day; Second Hand Exposure: No; Hx Alcohol Use: Yes Alcohol type: hard liquor Alcohol Intake Frequency Comment: 2-3 drinks a day Hx Substance Use: No Preferred Language: Albanian Communication Ability: Effective Visual Impairment: No Limitations Temporary Administrative Assistant Required: No Beliefs That Will Affect Care: None marital status: Single Current Living Situation: Alone current occupational status: retired Feels Safe at Home: Yes Childhood Exposure to Second-Hand Smoke: Yes caffeine: Yes Dental Care, Regularly: No Physical Activity Frequency: Daily Seatbelt Use: never Sunscreen Use: No Assistive Devices: Oxygen - at Night Review of Systems Review of Systems: All systems reviewed & are unremarkable except as noted in HPI & below Physical Exam Physical Exam: General: frail, chronically ill in appearance, BiPAP in place, patient somnolent but arousable Skin: warm, dry, intact, no rashes or lesions HEENT: NC/AT, PERRL, EOMI, anicteric sclera, conjunctiva without injection, e xternal ear normal to inspection and nontender, nares patent, moist mucus membranes, dentition intact, no oropharyngeal lesions, neck supple, trachea midline, no LAD, no thyromegaly, no JVD Heart: +S1/S2, irregularly irregular, tachycardic, no m/r/g Lungs: equal air entry bilaterally, diminished breath sounds with prolonged expiratory phase and wheezing Abd: +BS, soft, NT/ND, no masses/organomegaly/ascites Ext: warm, 2+ pulses in UE/LE bilaterally, no clubbing/cyanosis. 1+ pitting edema of bilateral LE Neuro: somnolent, arousable, following commands Results & Data Results & Data ([facility]) Vital Signs (Past 12 Hours) Vital Signs Temp Pulse Pulse Pulse Resp BP BP 12/17/21 05:26 111 H 20 12/17/21 04:06 134 H 20 12/17/21 03:57 136 H 16 104/70 12/17/21 03:01 127 H 17 104/70 12/17/21 02:00 121 H 17 12/17/21 02:00 106/87 12/17/21 01:40 118/82 12/17/21 01:40 132 H 29 H 12/17/21 00:42 12/17/21 00:42 12/17/21 00:42 18 12/17/21 00:36 12/17/21 00:36 12/17/21 00:32 36.6 C 127 H 15 102/69 Pulse Ox O2 Del Method O2 Flow Rate FiO2 12/17/21 05:26 95 45 12/17/21 04:06 97 Nasal Cannula 2 12/17/21 03:57 99 Room Air 12/17/21 03:01 94 Nasal Cannula 12/17/21 02:00 90 Nasal Cannula 2 12/17/21 02:00 12/17/21 01:40 12/17/21 01:40 89 L Nasal Cannula 2 12/17/21 00:42 Nasal Cannula 12/17/21 00:42 92 Nasal Cannula 2 12/17/21 00:42 92 Nasal Cannula 2 12/17/21 00:36 94 Room Air 12/17/21 00:36 Room Air 12/17/21 00:32 97 Room Air Laboratory Results Laboratory Results WBC 8.46 K/ul (4.8-10.8) 12/17/21 00:32 RBC 3.21 M/uL (4.63-6.08) L 12/17/21 00:32 Hgb 10.5 g/dl (14.0-18.0) L 12/17/21 00:32 Hct 31.4 % (40.1-51.0) L 12/17/21 00:32 MCV 97.8 fL (80.0-100.0) 12/17/21 00:32 MCH 32.7 pg (25.0-34.0) 12/17/21 00: MCHC 33.4 g/dL (32.0-36.0) 12/17/21 00:32 RDW Std Deviation 59.0 fL (36.4-46.3) H 12/17/21 00:32 RDW Coeff of Erik 16.5 % (11.5-14.5) H 12/17/21 00:32 Plt Count 87 K/uL (130-400) L 12/17/21 00:32 MPV 11.4 fL (9.4-12.4) 12/17/21 00:32 Immature Gran % (Auto) 0.9 % 12/17/21 00:32 Neut % (Auto) 83.9 % 12/17/21 00:32 Lymph % (Auto) 4.5 % 12/17/21 00:32 Storey % (Auto) 10.6 % 12/17/21 00:32 Eos % (Auto) 0.0 % 12/17/21 00:32 Baso % (Auto) 0.1 % 12/17/21 00:32 Neut # (Auto) 7.09 K/uL (1.4-6.5) H 12/17/21 00:32 Lymph # (Auto) 0.38 K/uL (1.2-3.4) L 12/17/21 00:32 Storey # (Auto) 0.90 K/uL (0.24-0.82) H 12/17/21 00:32 Eos # (Auto) 0.00 K/uL (0-0.50) 12/17/21 00:32 Baso # (Auto) 0.01 K/uL (0-0.2) 12/17/21 00:32 Immature Gran # (Auto) 0.08 K/uL (0.00-0.02) H 12/17/21 00:32 Platelet Estimate Decreased (Normal) L 12/17/21 00:32 PT 12.2 Seconds (9.0-12.0) H 12/17/21 00:32 INR 1.2 (0.9-1.1) H 12/17/21 00:32 APTT 24.3 Seconds (21.0-31.0) 12/17/21 00:32 PTT Ratio 0.9 12/17/21 00:32 Sodium 127 mmol/L (136-145) L 12/17/21 00:32 Potassium 3.5 mmol/L (3.5-5.1) 12/17/21 00:32 Chloride 78 mmol/L (98-107) L 12/17/21 00:32 Carbon Dioxide 44 mmol/L (21-32) H* 12/17/21 00:32 Anion Gap 5 (3-11) 12/17/21 00:32 BUN 44 mg/dl (6-23) H 12/17/21 00:32 Creatinine 1.46 mg/dl (0.6-1.4) H 12/17/21 00:32 Est Cr Clr Drug Dosing 44.3 ml/min 12/17/21 00:32 Est GFR ( Amer) 57.3 ml/min 12/17/21 00:32 Est GFR (Non-Af Amer) 49.4 ml/min 12/17/21 00:32 BUN/Creatinine Ratio 30.1 (10-20) H 12/17/21 00:32 Glucose 101 mg/dl (70-99(Fasting)) H 12/17/21 00:32 Calcium 8.8 mg/dl (8.5-10.1) 12/17/21 00:32 Magnesium 2.0 mg/dl (1.7-2.4) 12/17/21 00:32 Total Bilirubin 1.4 mg/dl (0.2-1.0) H 12/17/21 00:32 AST 32 U/L (13-39) 12/17/21 00:32 ALT 28 U/L (7-52) 12/17/21 00:32 Alkaline Phosphatase 84 U/L (34-104) 12/17/21 00:32 Troponin I High Sens 35.0 pg/ml (0-20) H D 12/17/21 03:11 Total Protein 5.6 gm/dl (6.0-8.3) L 12/17/21 00:32 Albumin 3.4 gm/dl (3.4-5.0) 12/17/21 00:32 Globulin 2.2 gm/dl (2.5-4.0) L 12/17/21 00:32 Albumin/Globulin Ratio 1.5 (0.9-2) 12/17/21 00:32 SARS-CoV-2 (PCR) NEGATIVE (Negative) 12/17/21 03:24 Influenza Type A (PCR) Negative (Neg) 12/17/21 03:24 Influenza Type B (PCR) Negative (Neg) 12/17/21 03:24 RSV (RT-PCR) Negative (Neg) 12/17/21 03:24 Diagnostic Findings CXR - by my interpretation - appears hyperinflated, sternotomy wires in place, AICD in place, no infiltrate, PTX. possible bilateral pleural effusions and increased interstitial markings ?volume Code Status & VTE Plan Code Status Full Code per discussion with patient VTE Prophylaxis Plan VTE Prophylaxis will be ordered: Yes PG Care Time/CCT Total # of Minutes Spent Total Time Spent with Patient: Total time spent is greater than 50% in coordination of care (as documented) at patient's floor/unit and/or counseling patient: Coding Level of Care Code 21200 Initial Inpt Care Lvl 3 Diagnoses Atrial fibrillation with RVR I48.91 COPD (chronic obstructive pulmonary disease) J44.1 COPD type: COPD with acute exacerbation Pulmonary embolism I26.99 ETOH abuse F10.10 CHF (congestive heart failure) I50.9 Heart failure chronicity: unspecified Heart failure type: unspecified (1) COPD (chronic obstructive pulmonary disease) COPD type: COPD with acute exacerbation Qualified Code(s): J44.1 - Chronic obstructive pulmonary disease with (acute) exacerbation (2) CHF (congestive heart failure) Heart failure chronicity: unspecified Heart failure type: unspecified Qualified Code(s): I50.9 - Heart failure, unspecified
[2021-12-17] MEDS ORDERED: ONDANSETRON INJ 2 MG/ML 2 ML VIAL IV PRN (06:51)
[2021-12-17] MEDS ORDERED: ALBUTEROL 0.5% NEB SOLN 2.5 MG/0.5 ML VIAL NEB PRN (06:51)
[2021-12-17] MEDS ORDERED: ACETAMINOPHEN 325 MG TAB PO PRN (06:51)
[2021-12-17] MEDS ORDERED: LORazepam 1 MG TAB PO PRN (06:51)
[2021-12-17] MEDS ORDERED: FUROSEMIDE INJ 20 MG/2 ML VIAL IV ONE (06:51)
[2021-12-17] MEDS: ALBUT/IPRATROP 3MG/0.5MG NEB 3 ML VIAL NEB SCH ×4 (07:03→19:52)
[2021-12-17] MEDS ORDERED: FUROSEMIDE 40 MG/4 ML VIAL IV ONE ×2 (07:04→10:06)
--- NOTE | 2021-12-17 07:36 | Hospitalist Progress Note ---
Date of Service December 17, 2021 Assessment & Plan (1) Atrial fibrillation with RVR: Plan: 66yo male with history of COPD on home O2 2L, HFrEF secondary to ICM with EF of 20-25% per echo 11/29/21, AICD in place for history of VT/VF, AF, PE failure to thrive hx. laryngeal CA s/p chemo 2019, presenting with shortness of breath ()Hypoxia with Hypercapnia -patient removed BIPAP developed worsening hypoxia O2 sat drop to 36%, patient agreed to have BIPAP placed until family arrived -ABG pH 7.29 -currently obtunded on BIPAP, O2 sat at 92% ()Code Status DNI/resuscitation -patient denied intubation multiple times, continues to request CPR if needed despite knowing it may be futile without intubation. Family is aware -nursing made aware that if patient codes, we will attempt 2 rounds of CPR, if patient not resuscitated by attempt then will turn off ICD with a magnet. Family is aware ()Comfort Measures -Patient started on morphine drip given pain from work of breathing and air hunger -family made aware morphine may cause respiratory depression -recommend moving toward FAMILY PRESERVATION OFFICER given patient's hx and declining condition (1) Atrial fibrillation with RVR: Patient presented in AF with RVR. Initiated on Diltiazem drip in ER -Admit to PCU -hold metoprolol eliquis as patient unable to tolerate PO -Continue Diltiazem drip for now (2) COPD (chronic obstructive pulmonary disease): Suspect acute exacerbation of COPD contributing to overall clinical picture. BiPAP placed in ER. Initially somnolent, later became obtunded -ABG pH 7.29 pCO2 81 pO2 499 HCO3 39 -Solumedrol 30mg TID -Azithromycin IV -albuterol (5) CHF (congestive heart failure): Patient with HFrEF secondary to ICM. Most recent EF 20-15% on echo from [place]. History of VT/VF with ICD in place. -given 60mg IV lasix total in ED, urine output 300ml -hold home metoprolol (3) Pulmonary embolism: Newly diagnosed at [facility] earlier this month. Patient was started on anticoagulation with Apixaban -hold eliquis unable to tolerate PO (4) ETOH abuse: Uncertain how much patient is drinking -Check EtoH level -AWSS at risk -hold Thiamine/Folate FENa: food and fluid as needed Code Status: DNI/resuscitation DVT PPX: heparin 5000U q8, eliquis on hold given unable to tolerate PO Dispo: PCU Reina Powers Do PGY 2, FCM (2) COPD (chronic obstructive pulmonary disease): (3) Pulmonary embolism: (4) ETOH abuse: (5) CHF (congestive heart failure): (6) Hypoxia: Admission and Anticipated Discharge Date Admission Date: December 17, 2021 Supervising Physician Co-Signing Physician Notes Patient seen and examined with PGY-2 Dr. Powers. Agree with history, exam findings, assessment and plan of care as outlined. In brief, Mr. Pearl is a 66 year old male with history fo COPD (on 2L chronically), HFrEF with AICD (EF 20-25%), VT/VT, and prior PE admitted with dyspnea found to have afib with RVR, pulmonary edema. VS and nursing notes reviewed. Obtunded. On BiPAP. Ears, nose, fingers and toes are cyanotic. Tachycardic, irregularly irregular. +1 bilateral lower extremity edema. Lungs are coarse throughout. 1. Hypoxic respiratory failure, secondary to COPD exacerbation, pulmonary edema and afib with RVR. Requiring BiPAP. Unfortunately, he is quite resistant to BiPAP when he is awake and refuses to wear it. This resulted in a steep decline in his pulmonary and mental status earlier today. He is DNI. Does want 2 rounds of CPR. 2. Afib with RVR. Nearly rate controlled, but not quite at goal. Continue with dilt gtt. Holding home metoprolol since he is not awake enough to take pills. 3. Pulmonary edema. Likely secondary to afib with RVR. Received IV lasix. Monitoring I/O's, paulson in place. Repeat CXR in the AM. 4. COPD. uses 2L chronically, continue BiPAP for non-invasive ventilatory support. Continue duonebs, albuterol, Solumedrol 30mg TID, azithromycin. 5. HFrEF. Has AICD. IV lasix in an attempt to diurese some. 6. Hyponatremia. Chronic and near baseline. 7. goals of care. Does not want to be intubated. Does have AICD, but only wants [address] Powers has spoke with the family since patient was unable to have this conversation in the late morning/afternoon. Will need to use magnet to deactivate AICD. Morphine for air hunger. Dispo: pending clinical improvement. Subjective Patient seen at bedside leaning over in tripod position gasping for air refusing bipap seen on high flow oxygen, able to answer questions in nods or shakes head. ED provider in room, patient made explicitily aware that if he refuses BIPAP and intubation he will likely , patient continues to refuse BIPAP. O2 sats in 50% dropping. Family made aware of his condition, understand he has refused intubation, states he is very stubborn. Patient later developed abd pain from increased work of breathing O2 sat 40% despite 1mg morphine, family made aware are ok with increasing morphine with the knowledge that it will make him more comfortable but possibly worsen his breathing. Started morphine drip. Patient continues to refuse intubation, is ok with BIPAP if it will keep him alive long enough to meet with his family, BIPAP applied. Patient continued to worsen O2 sat 36% became obtunded on BIPAP. Blood pressure dropped to systolic 60's, cardizem discontinued. Family updated, they understand patient's code status of DNI resucsitate is not conductive to life, aware of ICD, however are nervous about changing his code status would like to discuss with rest of family first. Son Sami present at bedside. Family made aware that in the event his heart stops, we will try 2 rounds of CPR, if he is not resuscitated through these measures we will stop his ICD due to futility. Patient later moved to 208, O2 sats have steadily improved to 92% blood pressure improved still obtunded patient remains on BIPAP morphine drip cardizem drip. Plan to update family and recommend comfort measures only given patient's history and wishes, however family not at bedside. Review of Systems Review of Systems: Unobtainable due to reduced consciousness Physical Exam Constitutional: + thin, + frail appearing and + in distress Respiratory: + respiratory distress Auscultation: + crackles Cardiovascular: Rate/Rhythm: + tachycardic and + irregularly irregular Extremities: + edema (pitting b/l LE) Skin: no rashes, warm and dry Neurologic: + obtunded Results & Data Results & Data ([facility]) Vital Signs (Past 12 Hours) Vital Signs Temp Pulse Pulse Pulse Resp BP BP 12/17/21 07:04 108 H 21 12/17/21 07:04 108 H 21 12/17/21 06:19 108 H 22 111/82 12/17/21 06:06 113 H 19 12/17/21 05:26 111 H 20 12/17/21 04:06 134 H 20 12/17/21 03:57 136 H 16 104/70 12/17/21 03:01 127 H 17 104/70 12/17/21 02:00 121 H 17 12/17/21 02:00 106/87 12/17/21 01:40 118/82 12/17/21 01:40 132 H 29 H 12/17/21 00:42 12/17/21 00:42 12/17/21 00:42 18 12/17/21 00:36 12/17/21 00:36 12/17/21 00:32 36.6 C 127 H 15 102/69 Pulse Ox O2 Del Method O2 Flow Rate FiO2 12/17/21 07:04 98 70 12/17/21 07:04 98 BiPAP 70 12/17/21 06:19 99 BiPAP 12/17/21 06:06 92 60 12/17/21 05:26 95 45 12/17/21 04:06 97 Nasal Cannula 2 12/17/21 03:57 99 Room Air 12/17/21 03:01 94 Nasal Cannula 12/17/21 02:00 90 Nasal Cannula 2 12/17/21 02:00 12/17/21 01:40 12/17/21 01:40 89 L Nasal Cannula 2 12/17/21 00:42 Nasal Cannula 12/17/21 00:42 92 Nasal Cannula 2 12/17/21 00:42 92 Nasal Cannula 2 12/17/21 00:36 94 Room Air 12/17/21 00:36 Room Air 12/17/21 00:32 97 Room Air Diagnostic Findings Laboratory Results WBC 8.46 K/ul (4.8-10.8) 12/17/21 00:32 RBC 3.21 M/uL (4.63-6.08) L 12/17/21 00:32 Hgb 10.5 g/dl (14.0-18.0) L 12/17/21 00:32 POC Hgb 12.9 g/dl (14.0-18.0) L 12/17/21 11:11 Hct 31.4 % (40.1-51.0) L 12/17/21 00:32 POC Hct 38 % (42-52) L 12/17/21 11:11 MCV 97.8 fL (80.0-100.0) 12/17/21 00:32 MCH 32.7 pg (25.0-34.0) 12/17/21 00:32 MCHC 33.4 g/dL (32.0-36.0) 12/17/21 00:32 RDW Std Deviation 59.0 fL (36.4-46.3) H 12/17/21 00:32 RDW Coeff of Erik 16.5 % (11.5-14.5) H 12/17/21 00:32 Plt Count 87 K/uL (130-400) L 12/17/21 00:32 MPV 11.4 fL (9.4-12.4) 12/17/21 00:32 Immature Gran % (Auto) 0.9 % 12/17/21 00:32 Neut % (Auto) 83.9 % 12/17/21 00:32 Lymph % (Auto) 4.5 % 12/17/21 00:32 Kenton % (Auto) 10.6 % 12/17/21 00:32 Eos % (Auto) 0.0 % 12/17/21 00:32 Baso % (Auto) 0.1 % 12/17/21 00:32 Neut # (Auto) 7.09 K/uL (1.4-6.5) H 12/17/21 00:32 Lymph # (Auto) 0.38 K/uL (1.2-3.4) L 12/17/21 00:32 Kenton # (Auto) 0.90 K/uL (0.24-0.82) H 12/17/21 00:32 Eos # (Auto) 0.00 K/uL (0-0.50) 12/17/21 00:32 Baso # (Auto) 0.01 K/uL (0-0.2) 12/17/21 00:32 Immature Gran # (Auto) 0.08 K/uL (0.00-0.02) H 12/17/21 00:32 Platelet Estimate Decreased (Normal) L 12/17/21 00:32 PT 12.2 Seconds (9.0-12.0) H 12/17/21 00:32 INR 1.2 (0.9-1.1) H 12/17/21 00:32 APTT 24.3 Seconds (21.0-31.0) 12/17/21 00:32 PTT Ratio 0.9 12/17/21 00:32 POC pH 7.29 (7.35-7.45) L 12/17/21 11:11 POC pCO2 81 mmHg (35-46) H 12/17/21 11:11 POC pO2 499 mmHg (80-95) H 12/17/21 11:11 POC HCO3 39 lona/L (19-24) H 12/17/21 11:11 POC Total CO2 41 mmol/L (24-31) H* 12/17/21 11:11 POC Base Excess 12.0 lona/L (-9-1.8) H 12/17/21 11:11 POC Sodium 123 mmol/L (135-144) L 12/17/21 11:11 Sodium 127 mmol/L (136-145) L 12/17/21 00:32 POC Potassium 3.9 mmol/L (3.3-5.0) 12/17/21 11:11 Potassium 3.5 mmol/L (3.5-5.1) 12/17/21 00:32 Chloride 78 mmol/L (98-107) L 12/17/21 00:32 Carbon Dioxide 44 mmol/L (21-32) H* 12/17/21 00:32 Anion Gap 5 (3-11) 12/17/21 00:32 BUN 44 mg/dl (6-23) H 12/17/21 00:32 Creatinine 1.46 mg/dl (0.6-1.4) H 12/17/21 00:32 Est Cr Clr Drug Dosing 44.3 ml/min 12/17/21 00:32 Est GFR ( Amer) 57.3 ml/min 12/17/21 00:32 Est GFR (Non-Af Amer) 49.4 ml/min 12/17/21 00:32 BUN/Creatinine Ratio 30.1 (10-20) H 12/17/21 00:32 Glucose 101 mg/dl (70-99(Fasting)) H 12/17/21 00:32 Calcium 8.8 mg/dl (8.5-10.1) 12/17/21 00:32 Phosphorus 3.9 mg/dl (2.5-4.9) 12/17/21 07:17 Magnesium 2.0 mg/dl (1.7-2.4) 12/17/21 00:32 Total Bilirubin 1.4 mg/dl (0.2-1.0) H 12/17/21 00:32 AST 32 U/L (13-39) 12/17/21 00:32 ALT 28 U/L (7-52) 12/17/21 00:32 Alkaline Phosphatase 84 U/L (34-104) 12/17/21 00:32 Troponin I High Sens 30.8 pg/ml (0-20) H 12/17/21 15:37 B-Natriuretic Peptide 1274 pg/ml (0-100) H 12/17/21 07:17 Total Protein 5.6 gm/dl (6.0-8.3) L 12/17/21 00:32 Albumin 3.4 gm/dl (3.4-5.0) 12/17/21 00:32 Globulin 2.2 gm/dl (2.5-4.0) L 12/17/21 00:32 Albumin/Globulin Ratio 1.5 (0.9-2) 12/17/21 00:32 Procalcitonin 0.05 ng/ml (0-0.5) 12/17/21 07:17 Ethyl Alcohol mg/dL < 10.0 mg/dl (<10.0) 12/17/21 07:17 SARS-CoV-2 (PCR) NEGATIVE (Negative) 12/17/21 03:24 Influenza Type A (PCR) Negative (Neg) 12/17/21 03:24 Influenza Type B (PCR) Negative (Neg) 12/17/21 03:24 RSV (RT-PCR) Negative (Neg) 12/17/21 03:24 Impressions Chest X-Ray 12/17/21 09:58 XR chest 1V portable HISTORY: hypoxia COMPARISON: Chest 12/17/2021. FINDINGS: No pneumothorax. Small bilateral pleural effusions and mild interstitial pulmonary edema have slightly progressed. Hazy appearance the right lung base represents the layering pleural fluid. Right basilar airspace opacity could also have a similar appearance. There is a left-sided single lead pacemaker/diffuse bladder. There are poststernotomy changes. The heart is mildly enlarged. IMPRESSION: 1. Interval progression of the pulmonary edema and small bilateral pleural effusions. 2. Hazy appearance to the right lung base likely represents layering pleural fluid. A right lung base airspace opacity could also have a similar appearance. ACT 112: Negative or not required by law. Electronically signed by: Yogi Cole M.D. 12/17/2021 11:40 AM Medications Administered Current Inpatient Medications Acetaminophen (Acetaminophen 325 Mg Tab) 650 mg PO Q4H PRN PRN Reason: Pain or Fever Stop: 01/16/22 06:50 Albuterol (Albut/Ipratrop 3mg/0.5mg Neb 3 Ml Vial) 3 ml NEB Q4R [facility]; Protocol Stop: 01/16/22 06:59 Last Admin: 12/17/21 14:30 Dose: 3 ml Albuterol (Albuterol 0.5% Neb Soln 2.5 Mg/0.5 Ml Vial) 2.5 mg NEB Q2H PRN; Prot ocol PRN Reason: SOB/Wheeze Stop: 01/16/22 06:50 Apixaban (Apixaban 5 Mg Tablet) 5 mg PO BID [facility] Stop: 01/16/22 08:59 Last Admin: 12/17/21 10:08 Dose: Not Given Aspirin (Aspirin 81 Mg Ectab) 81 mg PO BID [facility] Stop: 01/16/22 08:59 Last Admin: 12/17/21 10:08 Dose: Not Given Fluticasone Furoate (Fluticasone Furoate 100mcg 14 Puffs/Inhaler) 1 puffs INH DAILY [facility] Stop: 01/16/22 08:59 Last Admin: 12/17/21 10:08 Dose: Not Given Folic Acid (Folic Acid 1 Mg Tab) 1 mg PO QAM [facility] Stop: 01/16/22 08:59 Last Admin: 12/17/21 10:08 Dose: Not Given Gabapentin (Gabapentin 600 Mg Tab) 600 mg PO QAM [facility] Stop: 01/16/22 08:59 Last Admin: 12/17/21 10:09 Dose: Not Given Diltiazem HCl 125 mg/ Dextrose 125 mls @ 5 mls/hr IV .Q24H [facility]; Protocol Stop: 01/16/22 02:44 Last Titration: 12/17/21 15:04 Dose: 5 mg/hr, 5 mls/hr Methylprednisolone 30 mg/ (Syringe) 0.48 mls @ 1.5 mls/min IV Q8H [facility] Stop: 01/16/22 07:59 Last Admin: 12/17/21 15:14 Dose: 1.5 mls/min Azithromycin 250 mg/ Dextrose 252.5 mls @ 125 mls/hr IV DAILY [facility] Stop: 12/25/21 08:59 Morphine Sulfate (Morphine Sulf/Nss) 100 mg in 100 mls @ 1 mls/hr IV .Q96H [facility]; Protocol Stop: 12/31/21 09:44 Last Titration: 12/17/21 14:31 Dose: 1 mg/hr, 1 mls/hr Lorazepam (Lorazepam 1 Mg Tab) 1 mg PO ONE PRN; Protocol PRN Reason: EtoH Withdrawal AWSS 6,7,8,9,10 Metoprolol Succinate (Metoprolol Succ 25mg Ext Rel Tab) 75 mg PO QAM [facility] Stop: 01/16/22 08:59 Last Admin: 12/17/21 10:09 Dose: Not Given Ondansetron HCl (Ondansetron Inj 2 Mg/Ml 2 Ml Vial) 4 mg IV Q6H PRN PRN Reason: Nausea Stop: 01/16/22 06:50 Thiamine HCl (Thiamine Hcl 100 Mg Tab) 100 mg PO QAM [facility] Stop: 01/16/22 08:59 Last Admin: 12/17/21 10:09 Dose: Not Given Umeclidinium/Vilanterol (Umeclidinium/Vilanterol 62.5/25mcg 7 Puffs/Inhaler) 1 puffs INH DAILY [facility] Stop: 01/16/22 08:59 Last Admin: 12/17/21 10:09 Dose: Not Given Resident Activity Tracking Resident Involvement: Resident Care Provided Care Provided: Adult Hospital Medicine (1) CHF (congestive heart failure) Heart failure chronicity: unspecified Heart failure type: unspecified Qualified Code(s): I50.9 - Heart failure, unspecified (2) COPD (chronic obstructive pulmonary disease) COPD type: COPD with acute exacerbation Qualified Code(s): J44.1 - Chronic obstructive pulmonary disease with (acute) exacerbation
[2021-12-17] MEDS ORDERED: LORazepam 2 MG/1 ML VIAL ONE (08:09)
[2021-12-17] MEDS ORDERED: RAPID SEQUENCE INDUCTION BAG ONE (08:13)
--- NOTE | 2021-12-17 08:20 | XRay Report ---
XR chest 1V portable HISTORY: 66 years-old Male SOB acute shortness of breath COMPARISON: 11/20/2021 TECHNIQUE: Portable AP view of the chest FINDINGS: The cardiac silhouette is enlarged. Prior median sternotomy. Left subclavian pacer/AICD. No pneumotho rax. Trace left and small right pleural effusions. There is mild pulmonary vascular congestion. Minim al bibasilar opacities. Emphysema with chronic interstitial coarsening. IMPRESSION: 1. Cardiomegaly with pulmonary vascular congestion. 2. Trace left and small right pleural effusions. 3. Emphysema. ACT 112: Negative or not required by law. The above report was generated using voice recognition software. It may contain grammatical, syntax o r spelling errors. Electronically signed by: Jasen Ingram M.D. 12/17/2021 8:18 AM
--- NOTE | 2021-12-17 08:35 | Emergency Department Note ---
History of Present Illness General Chief complaint: Shortness of Breath/Dyspnea Stated complaint: SOB, R arm numbness Time Seen by Provider: 12/17/21 01:58 Source: patient Mode of arrival: EMS Limitations: physical limitation History of Present Illness Provider complaint: shortness of breath, palpitations Onset (ago): hour(s) Associated symptoms: + chest pain, + cough and + shortness of breath; no fever/chills, no loss of appetite, no malaise or no nausea/vomiting Treatments prior to arrival: none This is a 66 yo male who presents with shortness of breath and palpitations. Patient routinely wears 2 lpm oxygen at home due to COPD. He states he has MDI/nebs that he is supposed to use but he doesn't. He admits to still smoking. Patient states he has mild chest discomfort with his palpitations. He does have prior hx of a.fib. Patient does take blood thinners. He denies change in cough, fevers/chills, abdominal pain, n/v, leg swelling. No recent sick contacts. Denies any change in medications. Pt seen during a time of high acuity and national emergency pandemic while wearing PPE. Home Medications Medication Instructions Recorded Confirmed Type aspirin 81 mg tablet,delayed 81 mg PO BID 06/04/19 12/10/21 History release (Adult Aspirin Regimen) gabapentin 600 mg tablet 600 mg PO QAM 09/22/21 12/10/21 History furosemide 40 mg tablet 40 mg PO QAM PRN weight gain 11/16/21 12/10/21 History metoprolol succinate 25 mg 75 mg PO QAM 11/16/21 12/10/21 History tablet,extended release 24 hr sildenafil 100 mg tablet (Viagra) 100 mg PO QAM PRN sexual activity 11/16/21 12/10/21 History apixaban 5 mg tablet (Eliquis) See Rx Instructions PO BID #88 tabs 12/02/21 12/10/21 Rx Portable Oxygen #1 ea 12/06/21 12/10/21 Rx albuterol sulfate 90 mcg/actuation 2 puff inhalation Q6H PRN 12/06/21 12/10/21 Rx aerosol inhaler Shortness Of Breath Or Wheezing #18 grams fluticasone fur. 100 mcg-umeclid 1 inh inhalation DAILY #60 ea 12/06/21 12/10/21 Rx 62.5 mcg-vilant 25 mcg inhalat.powder (Trelegy Ellipta) Allergies Allergy/AdvReac Type Severity Reaction Status Date / Time No Known Allergies Allergy Verified 12/10/21 15:31 Past Med/Surg History Medical History Acute exacerbation of chronic obstructive pulmonary disease (COPD) Acute hyponatremia Alcohol withdrawal Anemia Chronic- stable Atrial fibrillation with rapid ventricular response COPD (chronic obstructive pulmonary disease) Dyspnea Elevated troponin Fluid overload Hyponatremia Ischemic cardiomyopathy with implantable cardioverter-defibrillator (ICD) 05/2019 ECHO shows EF of 20-25% MEDTRONIC DEFIB IMPLANTED AFTER CABG X 3 in 2017 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, right cord reduced movement, glottic opening reduced - ENT has discussed with him a prophylactic trach which he has refused 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- CARDIAC ARREST WHILE DRIVING - HE WAS DEFIBRILLATED AT THE SCENE AND TAKEN TO [facility] AND THEN LIFEFLIGHTED TO [facility] On home O2 2L/at night Peripheral vascular disease HAS STENT IN RIGHT LEG Peripheral vascular disease Poor historian Pulmonary embolism Dx'd at [facility] 11/28/21 Surgical History History of cardiac cath HAD CATH AROUND 2006 WITH STENT; THEN IN 11/2016 HAD CATH WITH CABG X3 FOLLOW WITH [facility]; "not sure what kind of stents he has" History of coronary artery bypass graft 2017- CARABALLO to LAD, SVG to OM, SVG to PDA History of surgery on extremity RIGHT LEG AND HAD STENT PLACED 2016 History of throat surgery direct microlaryngoscopy with biopsies-06/25/2019-Dr. 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 All systems reviewed & are unremarkable except as noted in HPI & below Physical Exam Vital Signs Vital Signs - 24 hr 12/17/21 00:32 12/17/21 00:36 12/17/21 00:36 Temperature 36.6 C Temperature Source Oral Pulse Rate 127 H Pulse Rate [Apical] Pulse Rate [Finger] Pulse Rhythm Irregular Respiratory Rate 15 Respiratory Effort / Characteristics Non-Labored Non-Labored Spontaneous Respiratory Depth Normal Normal Respiratory Pattern Regular Regular Blood Pressure 102/69 Blood Pressure [Right Arm] Blood Pressure Mean 80 Blood Pressure Mean [Right Arm] Blood Pressure Position Lying Blood Pressure Position [Right Arm] Pulse Oximetry 97 94 Oxygen Delivery Method Room Air Room Air Room Air Oxygen Flow Rate Fraction of Inspired Oxygen Sepsis Recent Fever Within 48 Hours No Sepsis New/Unexplained Change in Mental Status N/A Sepsis Action Taken by Nursing No Action Required 12/17/21 00:42 12/17/21 00:42 12/17/21 00:42 Temperature Temperature Source Pulse Rate Pulse Rate [Apical] Pulse Rate [Finger] Pulse Rhythm Respiratory Rate 18 Respiratory Effort / Characteristics Labored Respiratory Depth Respiratory Pattern Blood Pressure Blood Pressure [Right Arm] Blood Pressure Mean Blood Pressure Mean [Right Arm] Blood Pressure Position Blood Pressure Position [Right Arm] Pulse Oximetry 92 92 Oxygen Delivery Method Nasal Cannula Nasal Cannula Nasal Cannula Oxygen Flow Rate 2 2 Fraction of Inspired Oxygen Sepsis Recent Fever Within 48 Hours Sepsis New/Unexplained Change in Mental Status Sepsis Action Taken by Nursing 12/17/21 01:40 12/17/21 01:40 12/17/21 02:00 Temperature Temperature Source Pulse Rate 132 H Pulse Rate [Apical] Pulse Rate [Finger] Pulse Rhythm Respiratory Rate 29 H Respiratory Effort / Characteristics Respiratory Depth Respiratory Pattern Blood Pressure 118/82 106/87 Blood Pressure [Right Arm] Blood Pressure Mean 94 93 Blood Pressure Mean [Right Arm] Blood Pressure Position Blood Pressure Position [Right Arm] Pulse Oximetry 89 L Oxygen Delivery Method Nasal Cannula Oxygen Flow Rate 2 Fraction of Inspired Oxygen Sepsis Recent Fever Within 48 Hours Sepsis New/Unexplained Change in Mental Status Sepsis Action Taken by Nursing 12/17/21 02:00 12/17/21 03:01 12/17/21 03:57 Temperature Temperature Source Pulse Rate 121 H Pulse Rate [Apical] 127 H 136 H Pulse Rate [Finger] Pulse Rhythm Respiratory Rate 17 17 16 Respiratory Effort / Characteristics Labored Non-Labored Spontaneous Respiratory Depth Normal Normal Respiratory Pattern Regular Blood Pressure Blood Pressure [Right Arm] 104/70 104/70 Blood Pressure Mean Blood Pressure Mean [Right Arm] 81 81 Blood Pressure Position Blood Pressure Position [Right Arm] Lying Sitting Pulse Oximetry 90 94 99 Oxygen Delivery Method Nasal Cannula Nasal Cannula Room Air Oxygen Flow Rate 2 Fraction of Inspired Oxygen Sepsis Recent Fever Within 48 Hours Sepsis New/Unexplained Change in Mental Status Sepsis Action Taken by Nursing 12/17/21 04:06 12/17/21 05:26 Temperature Temperature Source Pulse Rate 111 H Pulse Rate [Apical] Pulse Rate [Finger] 134 H Pulse Rhythm Respiratory Rate 20 20 Respiratory Effort / Characteristics Spontaneous Short of Breath Spontaneous Accessory Muscle Use Respiratory Depth Normal Respiratory Pattern Blood Pressure Blood Pressure [Right Arm] Blood Pressure Mean Blood Pressure Mean [Right Arm] Blood Pressure Position Blood Pressure Position [Right Arm] Pulse Oximetry 97 95 Oxygen Delivery Method Nasal Cannula Oxygen Flow Rate 2 Fraction of Inspired Oxygen 45 Sepsis Recent Fever Within 48 Hours Sepsis New/Unexplained Change in Mental Status Sepsis Action Taken by Nursing GENERAL: alert, well appearing, well nourished, no distress, non-toxic EYE EXAM: normal conjunctiva, PERRL and EOM's grossly intact OROPHARYNX: no exudate, no erythema, lips, buccal mucosa, and tongue normal and mucous membranes are moist NECK: supple, no nuchal rigidity, no adenopathy, non-tender LUNGS: Clear to auscultation. Normal chest wall mechanics, no r/r, b/l wheezing with increase WOB noted HEART: no murmurs, S1 normal and S2 normal ABDOMEN: abdomen soft, non-tender, normo-active bowel sounds, no masses, no rebound or guarding. BACK: Back is symmetrical on inspection and there is no deformity, no midline tenderness, no CVA tenderness. SKIN: no rashes and no bruising UPPER EXTREMITIES: upper extremities are grossly normal. FROM, nml pulses b/l. LOWER EXTREMITIES: No pitting edema. FROM, nml pulses b/l. NEURO EXAM: Normal sensorium, cranial nerves II-XII grossly intact, normal speech, no gross weakness of arms, no gross weakness of legs. Gross sensation intact. Course Course 0245: Pt still with significant b/l wheezing. 0336: Cardizem started for rate control. Patient still with wheezing. 0502: Pt still with wheezing. HR improved but still tachycardic. Patient denies difficulty breathing. He appears more fatigued though, so RT contacted for bipap. 0530: Case discussed with hospitalist. 0802: Nursing staff came and requested I come see the patient as he had removed the bipap. His sats were dropping and were in the 70's when I entered the room. Patient was still awake, oriented. He refused to place bipap back on until he was given something for anxiety. His BP had unfortunately dropped and I discussed risks of medicating him as well as risks of BIpap being off and his hypoxia. I began prepping equipment for intubation. We discussed intubation. He declined despite discussing benefits at this point. THis was witnessed by nursing staff. Patient had previously been admitted as a full code. Nursing staff had contacted the daylight hospitalist who also came to bedside. Patient given 0.25 mg ativan IV and an IVF bolus. With RT help, BIpap was replaced after this however hypoxia persisted. ADditional nebs given. Additional ativan given. CArdizem dripped stopped due to hypotension. Patient declined cardioversion additionally. I again discussed intubation with patient and he continued to decline. We then discussed CPR - he did still want CPR if his heart would stop. 0820: I contacted pt's son regarding pt's deterioration. He is en route to the hospital. 0830: Hospitalist again verified patient's wishes of CPR, but no intubation. Administered Medications Discontinued Medications Albuterol (Albut/Ipratrop 3mg/0.5mg Neb 3 Ml Vial) Confirm Administered Dose 3 ml .ROUTE .STK-MED ONE Stop: 12/17/21 02:01 Last Admin: 12/17/21 02:02 Dose: 3 ml Documented By: SS Albuterol (Albut/Ipratrop 3mg/0.5mg Neb 3 Ml Vial) 3 ml NEB Q4R ARISTEO; Protocol Stop: 01/16/22 06:59 Last Admin: 12/18/21 07:04 Dose: Not Given Documented By: Admin: 12/18/21 06:56 Dose: 3 ml Documented By: Admin: 12/18/21 00:40 Dose: Not Given Documented By: [id number] Admin: 12/17/21 19:52 Dose: Not Given Documented By: [id number] Admin: 12/17/21 14:30 Dose: 3 ml Documented By: Admin: 12/17/21 10:54 Dose: 3 ml Documented By: Admin: 12/17/21 07:03 Dose: 3 ml Documented By: ZACK Apixaban (Apixaban 5 Mg Tablet) 5 mg PO BID ARISTEO Stop: 01/16/22 08:59 Last Admin: 12/17/21 10:08 Dose: Not Given Documented By: DELLA Aspirin (Aspirin 81 Mg Ectab) 81 mg PO BID [facility] Stop: 01/16/22 08:59 Last Admin: 12/17/21 10:08 Dose: Not Given Documented By: DELLA Fluticasone Furoate (Fluticasone Furoate 100mcg 14 Puffs/Inhaler) 1 puffs INH DAILY ARISTEO Stop: 01/16/22 08:59 Last Admin: 12/18/21 07:14 Dose: Not Given Documented By: Admin: 12/17/21 10:08 Dose: Not Given Documented By: DELLA Folic Acid (Folic Acid 1 Mg Tab) 1 mg PO QAM [facility] Stop: 01/16/22 08:59 Last Admin: 12/17/21 10:08 Dose: Not Given Documented By: DELLA Furosemide (Furosemide Inj 20 Mg/2 Ml Vial) 20 mg IV ONE ONE Stop: 12/17/21 06:52 Last Admin: 12/17/21 07:07 Dose: 20 mg Documented By: DELLA Furosemide (Furosemide 40 Mg/4 Ml Vial) Confirm Administered Dose 40 mg IV .STK- MED ONE Stop: 12/17/21 07:05 Last Admin: 12/17/21 07:08 Dose: Not Given Documented By: DELLA Furosemide (Furosemide Inj 20 Mg/2 Ml Vial) 20 mg IV ONE STA Stop: 12/17/21 09:59 Last Admin: 12/17/21 10:10 Dose: Not Given Documented By: DELLA Furosemide (Furosemide 40 Mg/4 Ml Vial) Confirm Administered Dose 40 mg IV .STK- MED ONE Stop: 12/17/21 10:07 Last Admin: 12/17/21 10:10 Dose: 20 mg Documented By: DELLA Gabapentin (Gabapentin 600 Mg Tab) 600 mg PO QAM ARISTEO Stop: 01/16/22 08:59 Last Admin: 12/17/21 10:09 Dose: Not Given Documented By: DELLA Heparin Sodium (Porcine) (Heparin Sod 5,000 Unit/0.5 Ml Vial) 5,000 units SQ Q8 ARISTEO Stop: 01/16/22 21:59 Last Admin: 12/18/21 05:56 Dose: 5,000 units Documented By: Admin: 12/17/21 21:10 Dose: 5,000 units Documented By: CLC Sodium Chloride (Nss 1000ml) 1,000 mls @ 80 mls/hr IV .[id number] ARISTEO Stop: 01/16/22 02:44 Last Infusion: 12/17/21 07:11 Dose: 0 mls/hr Documented By: Admin: 12/17/21 02:57 Dose: 80 mls/hr Documented By: DEJA Diltiazem HCl 125 mg/ Dextrose 125 mls @ 15 mls/hr IV .Q8H20M ARISTEO; Protocol Stop: 01/16/22 02:44 Last Titration: 12/18/21 06:24 Dose: 0 mg/hr, 0 mls/hr Documented By: CLC Co-signed By: MEG Titration: 12/18/21 04:31 Dose: 0 mg/hr, 0 mls/hr Documented By: CLC Co-signed By: SB Admin: 12/17/21 21:14 Dose: 15 mg/hr, 15 mls/hr Documented By: CLC Co-signed By: RC Titration: 12/17/21 21:14 Dose: 15 mg/hr, 15 mls/hr Documented By: CLC Co-signed By: RC Titration: 12/17/21 18:45 Dose: 15 mg/hr, 15 mls/hr Documented By: MC Co-signed By: CLC Titration: 12/17/21 15:04 Dose: 5 mg/hr, 5 mls/hr Documented By: MC Co-signed By: KEG Titration: 12/17/21 14:24 Dose: 10 mg/hr, 10 mls/hr Documented By: MC Co-signed By: Titration: 12/17/21 12:11 Dose: 5 mg/hr, 5 mls/hr Documented By: DELLA Co-signed By: ANA LILIA Titration: 12/17/21 08:00 Dose: 0 mg/hr, 0 mls/hr Documented By: DELLA Co-signed By: Titration: 12/17/21 05:08 Dose: 10 mg/hr, 10 mls/hr Documented By: ITA Co-signed By: RAYO Admin: 12/17/21 03:56 Dose: 5 mg/hr, 5 mls/hr Documented By: ANUM Co-signed By: DEJA Azithromycin 500 mg/ Dextrose 255 mls @ 125 mls/hr IV ONE ONE Stop: 12/17/21 07:38 Last Infusion: 12/17/21 10:47 Dose: 0 mls/hr Documented By: Admin: 12/17/21 06:28 Dose: 125 mls/hr Documented By: ITA Methylprednisolone 30 mg/ (Syringe) 0.48 mls @ 1.5 mls/min IV Q8H ARISTEO Stop: 01/16/22 07:59 Last Admin: 12/18/21 07:03 Dose: 1.5 mls/min Documented By: Admin: 12/18/21 00:15 Dose: 1.5 mls/min Documented By: Admin: 12/17/21 15:14 Dose: 1.5 mls/min Documented By: Admin: 12/17/21 10:49 Dose: 1.5 mls/min Documented By: DELLA Azithromycin 250 mg/ Dextrose 252.5 mls @ 125 mls/hr IV DAILY ARISTEO Stop: 12/25/21 08:59 Last Infusion: 12/18/21 09:21 Dose: 0 mls/hr Documented By: Admin: 12/18/21 07:13 Dose: 125 mls/hr Documented By: GARRICK Morphine Sulfate (Morphine Sulf/Nss) 100 mg in 100 mls @ 15 mls/hr IV .Q6H40M ARISTEO; Protocol Stop: 12/31/21 09:44 Last Titration: 12/18/21 10:18 Dose: 0 mg/hr, 0 mls/hr Documented By: Titration: 12/18/21 08:20 Dose: 15 mg/hr, 15 mls/hr Documented By: Titration: 12/18/21 08:08 Dose: 10 mg/hr, 10 mls/hr Documented By: Titration: 12/18/21 07:35 Dose: 5 mg/hr, 5 mls/hr Documented By: Titration: 12/18/21 04:31 Dose: 2.5 mg/hr, 2.5 mls/hr Documented By: Titration: 12/17/21 19:04 Dose: 5 mg/hr, 5 mls/hr Documented By: Titration: 12/17/21 18:35 Dose: 4.5 mg/hr, 4.5 mls/hr Documented By: Titration: 12/17/21 18:00 Dose: 4 mg/hr, 4 mls/hr Documented By: Titration: 12/17/21 17:35 Dose: 3.5 mg/hr, 3.5 mls/hr Documented By: Titration: 12/17/21 17:05 Dose: 3 mg/hr, 3 mls/hr Documented By: Titration: 12/17/21 16:10 Dose: 2.5 mg/hr, 2.5 mls/hr Documented By: Titration: 12/17/21 15:42 Dose: 2 mg/hr, 2 mls/hr Documented By: Titration: 12/17/21 15:10 Dose: 1.5 mg/hr, 1.5 mls/hr Documented By: Titration: 12/17/21 14:31 Dose: 1 mg/hr, 1 mls/hr Documented By: Titration: 12/17/21 09:49 Dose: 0 mg/hr, 0 mls/hr Documented By: Admin: 12/17/21 09:45 Dose: 1 mg/hr, 1 mls/hr Documented By: DELLA Co-signed By: AB Levalbuterol HCl (Levalbuterol Hcl 1.25 Mg/3 Ml Neb) 1.25 mg NEB NOW STA; Protocol Stop: 12/17/21 02:32 Last Admin: 12/17/21 02:56 Dose: 1.25 mg Documented By: DEJA Lorazepam (Lorazepam 2 Mg/1 Ml Vial) Confirm Administered Dose 2 mg .ROUTE .STK-MED ONE Stop: 12/17/21 08:10 Last Admin: 12/17/21 08:43 Dose: 0.5 mg Documented By: DELLA Methylprednisolone (Methylprednisolone 125 Mg/2 Ml Vial) 60 mg IV NOW STA Stop: 12/17/21 02:32 Last Admin: 12/17/21 02:55 Dose: 60 mg Documented By: DEJA Metoprolol Succinate (Metoprolol Succ 25mg Ext Rel Tab) 75 mg PO QAM [facility] Stop: 01/16/22 08:59 Last Admin: 12/17/21 10:09 Dose: Not Given Documented By: DELLA Miscellaneous (Xopenex/Atrovent 1.25mg/0.5mg Neb Combo) 1 each NEB NOW STA; Protocol Stop: 12/17/21 03:52 Last Admin: 12/17/21 04:04 Dose: 1 each Documented By: LIZZETTE Miscellaneous (Rapid Sequence Induction Bag) Confirm Administered Dose 1 each .ROUTE .STK-MED ONE Stop: 12/17/21 08:14 Last Admin: 12/17/21 09:27 Dose: Not Given Documented By: DELLA Morphine Sulfate (Morphine Sulfate 2 Mg/Ml Carp) 1 mg IV NOW STA Stop: 12/17/21 08:47 Last Admin: 12/17/21 08:52 Dose: 1 mg Documented By: DELLA Morphine Sulfate (Morphine Sulfate 2 Mg/Ml Carp) Confirm Administered Dose 2 mg .ROUTE .STK-MED ONE Stop: 12/17/21 08:50 Last Admin: 12/17/21 08:52 Dose: Not Given Documented By: DELLA Morphine Sulfate (Morphine Sulfate 2 Mg/Ml Carp) 2 mg IV NOW STA Stop: 12/17/21 09:27 Last Admin: 12/17/21 09:44 Dose: 2 mg Documented By: DELLA Thiamine HCl (Thiamine Hcl 100 Mg Tab) [facility] [place]: 01/16/22 08:59 Last Admin: 12/17/21 10:09 Dose: Not Given Documented By: DELLA Umeclidinium/Vilanterol (Umeclidinium/Vilanterol 62.5/25mcg 7 Puffs/Inhaler) 1 puffs INH DAILY [facility] Stop: 01/16/22 08:59 Last Admin: 12/18/21 07:14 Dose: Not Given Documented By: Admin: 12/17/21 10:09 Dose: Not Given Documented By: DELLA Critical Care Time Critical Care Time: Yes Total Critical Care Time: 58 Critical care of 58 min performed to assess and manage high likelihood of life- threatening acute respiratory failure, involving labs and imaging performed with assessment to evaluate acute respiratory failure diagnosis with frequent reassessment. This time includes bedside time, treatment discussions with patient/family/consultants, documentation time and excludes procedure time. Medical Decision Making Differential Diagnosis Differential diagnoses includes but is not limited to pneumonia, bronchitis, COPD/Asthma exacerbation, pneumothorax, pulmonary embolism, congestive heart failure, acute coronary syndrome Medical Records Attestation: I reviewed the patient's medical records. Home Medications Current Medication List: was personally reviewed by me Laboratory Data Attestation: I reviewed the patient's lab results. Result diagrams: 12/17/21 00:32 12/17/21 00:32 Lab Results 12/17/21 12/17/21 12/17/21 Range/Units 00:32 00:32 00:32 WBC 8.46 (4.8-10.8) K/ul RBC 3.21 L (4.63-6.08) M/uL Hgb 10.5 L (14.0-18.0) g/dl Hct 31.4 L (40.1-51.0) % MCV 97.8 (80.0-100.0) fL MCH 32.7 (25.0-34.0) pg MCHC 33.4 (32.0-36.0) g/dL RDW Std Deviation 59.0 H (36.4-46.3) fL RDW Coeff of Erik 16.5 H (11.5-14.5) % Plt Count 87 L (130-400) K/uL MPV 11.4 (9.4-12.4) fL Immature Gran % (Auto) 0.9 % Neut % (Auto) 83.9 % Lymph % (Auto) 4.5 % Charles % (Auto) 10.6 % Eos % (Auto) 0.0 % Baso % (Auto) 0.1 % Neut # (Auto) 7.09 H (1.4-6.5) K/uL Lymph # (Auto) 0.38 L (1.2-3.4) K/uL Charles # (Auto) 0.90 H (0.24-0.82) K/uL Eos # (Auto) 0.00 (0-0.50) K/uL Baso # (Auto) 0.01 (0-0.2) K/uL Immature Gran # (Auto) 0.08 H (0.00-0.02) K/uL Platelet Estimate Decreased L (Normal) PT 12.2 H (9.0-12.0) Seconds INR 1.2 H (0.9-1.1) APTT 24.3 (21.0-31.0) Seconds PTT Ratio 0.9 Sodium 127 L (136-145) mmol/L Potassium 3.5 (3.5-5.1) mmol/L Chloride 78 L (98-107) mmol/L Carbon Dioxide 44 H* (21-32) mmol/L Anion Gap 5 (3-11) BUN 44 H (6-23) mg/dl Creatinine 1.46 H (0.6-1.4) mg/dl Est Cr Clr Drug Dosing 44.3 ml/min Est GFR ( Amer) 57.3 ml/min Est GFR (Non-Af Amer) 49.4 ml/min BUN/Creatinine Ratio 30.1 H (10-20) Glucose 101 H (70-99(Fasting)) mg/dl Calcium 8.8 (8.5-10.1) mg/dl Magnesium 2.0 (1.7-2.4) mg/dl Total Bilirubin 1.4 H (0.2-1.0) mg/dl AST 32 (13-39) U/L ALT 28 (7-52) U/L Alkaline Phosphatase 84 (34-104) U/L Troponin I High Sens (0-20) pg/ml Total Protein 5.6 L (6.0-8.3) gm/dl Albumin 3.4 (3.4-5.0) gm/dl Globulin 2.2 L (2.5-4.0) gm/dl Albumin/Globulin Ratio 1.5 (0.9-2) SARS-CoV-2 (PCR) (Negative) Influenza Type A (PCR) (Neg) Influenza Type B (PCR) (Neg) RSV (RT-PCR) (Neg) 12/17/21 12/17/21 Range/Units 03:11 03:24 WBC (4.8-10.8) K/ul RBC (4.63-6.08) M/uL Hgb (14.0-18.0) g/dl Hct (40.1-51.0) % MCV (80.0-100.0) fL MCH (25.0-34.0) pg MCHC (32.0-36.0) g/dL RDW Std Deviation (36.4-46.3) fL RDW Coeff of Erik (11.5-14.5) % Plt Count (130-400) K/uL MPV (9.4-12.4) fL Immature Gran % (Auto) % Neut % (Auto) % Lymph % (Auto) % Charles % (Auto) % Eos % (Auto) % Baso % (Auto) % Neut # (Auto) (1.4-6.5) K/uL Lymph # (Auto) (1.2-3.4) K/uL Charles # (Auto) (0.24-0.82) K/uL Eos # (Auto) (0-0.50) K/uL Baso # (Auto) (0-0.2) K/uL Immature Gran # (Auto) (0.00-0.02) K/uL Platelet Estimate (Normal) PT (9.0-12.0) Seconds INR (0.9-1.1) APTT (21.0-31.0) Seconds PTT Ratio Sodium (136-145) mmol/L Potassium (3.5-5.1) mmol/L Chloride (98-107) mmol/L Carbon Dioxide (21-32) mmol/L Anion Gap (3-11) BUN (6-23) mg/dl Creatinine (0.6-1.4) mg/dl Est Cr Clr Drug Dosing ml/min Est GFR ( Amer) ml/min Est GFR (Non-Af Amer) ml/min BUN/Creatinine Ratio (10-20) Glucose (70-99(Fasting)) mg/dl Calcium (8.5-10.1) mg/dl Magnesium (1.7-2.4) mg/dl Total Bilirubin (0.2-1.0) mg/dl AST (13-39) U/L ALT (7-52) U/L Alkaline Phosphatase (34-104) U/L Troponin I High Sens 35.0 H D (0-20) pg/ml Total Protein (6.0-8.3) gm/dl Albumin (3.4-5.0) gm/dl Globulin (2.5-4.0) gm/dl Albumin/Globulin Ratio (0.9-2) SARS-CoV-2 (PCR) NEGATIVE (Negative) Influenza Type A (PCR) Negative (Neg) Influenza Type B (PCR) Negative (Neg) RSV (RT-PCR) Negative (Neg) Imaging Data Radiologist's Impression: Chest X-Ray 12/17/21 00:42 XR chest 1V portable HISTORY: 66 years-old Male SOB acute shortness of breath COMPARISON: 11/20/2021 TECHNIQUE: Portable AP view of the chest FINDINGS: The cardiac silhouette is enlarged. Prior median sternotomy. Left subclavian pacer/AICD. No pneumothorax. Trace left and small right pleural effusions. There is mild pulmonary vascular congestion. Minimal bibasilar opacities. Emphysema with chronic interstitial coarsening. IMPRESSION: 1. Cardiomegaly with pulmonary vascular congestion. 2. Trace left and small right pleural effusions. 3. Emphysema. ACT 112: Negative or not required by law. The above report was generated using voice recognition software. It may contain grammatical, syntax or spelling errors. Electronically signed by: Jasen Ingram M.D. 12/17/2021 8:18 AM ECG Data Rate (beats per minute): 122 Rhythm: + atrial fibrillation ECG Intervals/blocks: + Normal QRS and + Normal QT ECG [place]: + Normal ECG ST segments: + Nonspecific ST abnormalities MDM Narrative An order was placed for continuous cardiac monitoring. The monitor shows a rate of _127_ with _a.fib_ rhythm. THis is a 66 yo male who presents with palpitations and shortness of breath. A. fib with RVR noted. Patient not hypoxic, mildly increased WOB and b/l wheezing. Labs sent and cxr performed. Patient given several nebs and cardizem started for the rate. Patient rechecked multiple times and eventually started on bipap. Case was discussed with the hospitalist. Antibiotics added, gentle IVF given cardiac hx. Patient was being held in the ER as a hold into the morning when he removed his BIpap and refused to put it back which led to significant hypoxia and then hypotension. Hospitalist contacted as I prepped for intubation, however, after several discussions at bedside pt refused intubation and refused bipap unless given anxiety medication. Despite hypotension, pt given small dose of ativan to help facilitate replacing bipap after he refused intubation. He refused cardioversion. He did still want CPR if cardiac arrest occurred. Hospitalist came to bedside also. Cardizem stopped, IVF bolus given. I contacted pt's son who was en route. Hospitalist spoke to other family and again discussed code status with the patient. Impression & Plan Acute and chronic respiratory failure with hypoxia, COPD (chronic obstructive pulmonary disease), Atrial fibrillation with rapid ventricular response, Current smoker, Anemia, Hyponatremia Discharge Plan Visit Data Chief Complaint: Shortness of Breath/Dyspnea Stated Complaint: SOB, R arm numbness ED Provider: Chiara Persaud Discharge Problem: Acute and chronic respiratory failure with hypoxia, COPD (chronic obstructive pulmonary disease), Atrial fibrillation with rapid ventricular response, Current smoker, Anemia, Hyponatremia Patient Disposition: Admitted As Inpatient Discharge Instructions Interventions: ED Discharge Assessment Last Done: 12/17/21 07:00
[2021-12-17] MEDS ORDERED: MoRPHine SULFATE 2 MG/ML CARP IV STA ×2 (08:46→09:26)
[2021-12-17] MEDS ORDERED: MoRPHine SULFATE 2 MG/ML CARP ONE (08:49)
[2021-12-17] MEDS ORDERED: FOLIC ACID 1 MG TAB PO SCH (09:00)
[2021-12-17] MEDS ORDERED: NON-FORMULARY MEDICATION (Fluticasone-Umeclidin-Vilanter [Trelegy Ellipta] 100-62.5-25 mcg INH SCH (09:00)
[2021-12-17] MEDS ORDERED: APIXABAN 5 MG TABLET PO SCH (09:00)
[2021-12-17] MEDS ORDERED: GABAPENTIN 600 MG TAB PO SCH (09:00)
[2021-12-17] MEDS ORDERED: ASPIRIN 81 MG ECTAB PO SCH (09:00)
[2021-12-17] MEDS ORDERED: METOPROLOL SUCC 25MG EXT REL TAB PO SCH (09:00)
[2021-12-17] MEDS ORDERED: THIAMINE HCL 100 MG TAB PO SCH (09:00)
[2021-12-17] MEDS ORDERED: MoRPHine SULF/NSS 100 MG/100 ML BAG IV SCH (09:45)
[2021-12-17] MEDS ORDERED: FUROSEMIDE INJ 20 MG/2 ML VIAL IV STA (09:58)
[2021-12-17] MEDS: FLUTICASONE FUROATE 100MCG 14 PUFFS/INHALER INH SCH (10:08)
[2021-12-17] MEDS: UMECLIDINIUM/VILANTEROL 62.5/25MCG 7 PUFFS/INHALER INH SCH (10:09)
[2021-12-17] MEDS: methylPREDNISolone 30 MG in SYRINGE 0 ML IV SCH ×2 (10:49→15:14)
--- NOTE | 2021-12-17 11:41 | XRay Report ---
XR chest 1V portable HISTORY: hypoxia COMPARISON: Chest 12/17/2021. FINDINGS: No pneumothorax. Small bilateral pleural effusions and mild interstitial pulmonary edema mcgarry ve slightly progressed. Hazy appearance the right lung base represents the layering pleural fluid. Ri ght basilar airspace opacity could also have a similar appearance. There is a left-sided single lead pacemaker/diffuse bladder. There are poststernotomy changes. The heart is mildly enlarged. IMPRESSION: 1. Interval progression of the pulmonary edema and small bilateral pleural effusions. 2. Hazy appearance to the right lung base likely represents layering pleural fluid. A right lung base airspace opacity could also have a similar appearance. ACT 112: Negative or not required by law. Electronically signed by: Yogi Cole M.D. 12/17/2021 11:40 AM
[2021-12-17 15:07] LABS: iSTAT Arterial Blood Gas pCO2 81 mmHg (35-46); iSTAT Arterial Blood Gas pH 7.29 (7.35-7.45); iSTAT Hematocrit 38 % (42-52); iSTAT Hemoglobin 12.9 g/dl (14.0-18.0); iSTAT Potassium 3.9 mmol/L (3.3-5.0); iSTAT Sodium 123 mmol/L (135-144)
[2021-12-17 15:08] LABS: iSTAT Arterial Blood Gas HCO3 39 meg/L (19-24); iSTAT Arterial Blood Gas pO2 499 mmHg (80-95); iSTAT Carbon Dioxide 41 mmol/L (24-31)
[2021-12-17] MEDS: HEPARIN SOD 5,000 UNIT/0.5 ML VIAL SQ SCH (21:10)
--- NOTE | 2021-12-17 21:11 | Electrocardiogram Report ---
Test Reason : Blood Pressure : / mmHG Vent. Rate : 122 BPM Atrial Rate : 127 BPM P-R Int : 000 ms QRS Dur : 120 ms QT Int : 344 ms P-R-T Axes : 000 073 170 degrees QTc Int : 490 ms Poor data quality, interpretation may be adversely affected Atrial fibrillation with rapid ventricular response with premature ventricular or aberrantly conducte d complexes Incomplete left bundle block Abnormal ECG When compared with ECG of 20-NOV-2021 09:29, No significant change was found Confirmed by Bunny Murray ([id number]) on 12/17/2021 9:11:32 PM Referred By: REFERRED SELF Confirmed By:Bunny Murray
[2021-12-18] MEDS: methylPREDNISolone 30 MG in SYRINGE 0 ML IV SCH ×2 (00:15→07:03)
[2021-12-18] MEDS: ALBUT/IPRATROP 3MG/0.5MG NEB 3 ML VIAL NEB SCH ×3 (00:40→07:04)
--- NOTE | 2021-12-18 04:47 | Communication Note ---
Date of Service: December 18, 2021 At 4:17AM, patient's BP was 82/37. Nursing held the dilt drip and decreased the morphine drip by half. Sats in the 80s, w/ some low 80s. I called, but could not reach patient's son who is listed as primary contact. The voicemail is not set up. I was able to reach the secondary contact, patient's other son Shawn. I updated him on Mr. Pearl's declining status w/ the low blood pressures and barely maintaining saturations on bipap. He is requiring 100% FiO2 bipap to maintain >90% sat. We discussed the previous plan of attempting 2 rounds of cpr. I stated that I believe this to be a futile measure in this clinical context as patient's decline began after yesterday's desaturations. Shawn agrees to not attempt cpr if the patient's heart stops. I am changing code status from conditional (DNI) to DNR/DNI. I informed Shawn that he and the family may visit their father. Shawn states he is on his way. I reassessed patient and he continues to have obtunded clinical status and not responding to verbal stimuli. BP is 70s/40s.
[2021-12-18] MEDS: HEPARIN SOD 5,000 UNIT/0.5 ML VIAL SQ SCH (05:56)
[2021-12-18] MEDS: FLUTICASONE FUROATE 100MCG 14 PUFFS/INHALER INH SCH (07:14)
[2021-12-18] MEDS: UMECLIDINIUM/VILANTEROL 62.5/25MCG 7 PUFFS/INHALER INH SCH (07:14)
--- NOTE | 2021-12-18 08:32 | XRay Report ---
XR chest 1V portable HISTORY: 66 years-old Male fluid overload acute shortness of breath COMPARISON: Chest radiograph 12/17/2021 TECHNIQUE: Portable AP view of the chest FINDINGS: The cardiac silhouette is enlarged. Prior median sternotomy. Left subclavian pacer/AICD. No pneumotho rax. Layering pleural effusions with bibasilar consolidation, mildly progressed on the left. Pulmonar y vascular congestion with interstitial coarsening appears stable. Degenerative changes of the should ers and spine. IMPRESSION: 1. Cardiomegaly with unchanged pulmonary edema. 2. Layering pleural effusions with persistent bibasilar opacities, mildly progressed on the left. ACT 112: Negative or not required by law. The above report was generated using voice recognition software. It may contain grammatical, syntax o r spelling errors. Electronically signed by: Jasen Ingram M.D. 12/18/2021 8:30 AM
[2021-12-18] MEDS ORDERED: AZITHROMYCIN 250 MG in DEXTROSE 5% 250 ML IV SCH (09:00)
--- NOTE | 2021-12-18 13:43 | Discharge Summary ---
Date of Service December 18, 2021 Admission HPI Per Admitting Provider Rafael Pearl is a 66yo male with history of COPD on home O2 2L, HFrEF secondary to ICM with EF of 20-25% per echo 11/29/21, AICD in place for history of VT/VF, AF, PE presenting with shortness of breath. Patient provides very little history at this time - BiPAP in place, somnolent. Patient found to be in atrial fibrillation with RVR on arrival - rate of 127. He was started on a Cardizem drip for rate control. Tachypneic, saturating 89% on his baseline 2L NC. Placed on BiPAP. Patient refusing ABGs No additional complaints on limited interview. Patient reports breathing feels better. He denies chest pain, abdominal pain, nausea, vomiting or diarrhea. ER Course: Diltiazem, NSS at 80mL/hr, Xopenex, Solumedrol 60mg IV Principal Diagnosis COPD, HFrEF, Afib Discharge Data Allergies Allergy/AdvReac Type Severity Reaction Status Date / Time No Known Allergies Allergy Verified 12/10/21 15:31 Consultations 12/17/21 05:36 ED Decision to Admit Stat Ordered Studies Laboratory Results WBC 8.46 K/ul (4.8-10.8) 12/17/21 00:32 RBC 3.21 M/uL (4.63-6.08) L 12/17/21 00:32 Hgb 10.5 g/dl (14.0-18.0) L 12/17/21 00:32 POC Hgb 12.9 g/dl (14.0-18.0) L 12/17/21 11:11 Hct 31.4 % (40.1-51.0) L 12/17/21 00:32 POC Hct 38 % (42-52) L 12/17/21 11:11 MCV 97.8 fL (80.0-100.0) 12/17/21 00:32 MCH 32.7 pg (25.0-34.0) 12/17/21 00:32 MCHC 33.4 g/dL (32.0-36.0) 12/17/21 00:32 RDW Std Deviation 59.0 fL (36.4-46.3) H 12/17/21 00:32 RDW Coeff of Erik 16.5 % (11.5-14.5) H 12/17/21 00:32 Plt Count 87 K/uL (130-400) L 12/17/21 00:32 MPV 11.4 fL (9.4-12.4) 12/17/21 00:32 Immature Gran % (Auto) 0.9 % 12/17/21 00:32 Neut % (Auto) 83.9 % 12/17/21 00:32 Lymph % (Auto) 4.5 % 12/17/21 00:32 [place] % (Auto) 10.6 % 12/17/21 00:32 Eos % (Auto) 0.0 % 12/17/21 00:32 Baso % (Auto) 0.1 % 12/17/21 00:32 Neut # (Auto) 7.09 K/uL (1.4-6.5) H 12/17/21 00:32 Lymph # (Auto) 0.38 K/uL (1.2-3.4) L 12/17/21 00:32 [place] # (Auto) 0.90 K/uL (0.24-0.82) H 12/17/21 00:32 Eos # (Auto) 0.00 K/uL (0-0.50) 12/17/21 00:32 Baso # (Auto) 0.01 K/uL (0-0.2) 12/17/21 00:32 Immature Gran # (Auto) 0.08 K/uL (0.00-0.02) H 12/17/21 00:32 Platelet Estimate Decreased (Normal) L 12/17/21 00:32 PT 12.2 Seconds (9.0-12.0) H 12/17/21 00:32 INR 1.2 (0.9-1.1) H 12/17/21 00:32 APTT 24.3 Seconds (21.0-31.0) 12/17/21 00:32 PTT Ratio 0.9 12/17/21 00:32 POC pH 7.29 (7.35-7.45) L 12/17/21 11:11 POC pCO2 81 mmHg (35-46) H 12/17/21 11:11 POC pO2 499 mmHg (80-95) H 12/17/21 11:11 POC HCO3 39 lona/L (19-24) H 12/17/21 11:11 POC Total CO2 41 mmol/L (24-31) H* 12/17/21 11:11 POC Base Excess 12.0 lona/L (-9-1.8) H 12/17/21 11:11 POC Sodium 123 mmol/L (135-144) L 12/17/21 11:11 Sodium 127 mmol/L (136-145) L 12/17/21 00:32 POC Potassium 3.9 mmol/L (3.3-5.0) 12/17/21 11:11 Potassium 3.5 mmol/L (3.5-5.1) 12/17/21 00:32 Chloride 78 mmol/L (98-107) L 12/17/21 00:32 Carbon Dioxide 44 mmol/L (21-32) H* 12/17/21 00:32 Anion Gap 5 (3-11) 12/17/21 00:32 BUN 44 mg/dl (6-23) H 12/17/21 00:32 Creatinine 1.46 mg/dl (0.6-1.4) H 12/17/21 00:32 Est Cr Clr Drug Dosing 44.3 ml/min 12/17/21 00:32 Est GFR ( Amer) 57.3 ml/min 12/17/21 00:32 Est GFR (Non-Af Amer) 49.4 ml/min 12/17/21 00:32 BUN/Creatinine Ratio 30.1 (10-20) H 12/17/21 00:32 Glucose 101 mg/dl (70-99(Fasting)) H 12/17/21 00:32 Calcium 8.8 mg/dl (8.5-10.1) 12/17/21 00:32 Phosphorus 3.9 mg/dl (2.5-4.9) 12/17/21 07:17 Magnesium 2.0 mg/dl (1.7-2.4) 12/17/21 00:32 Total Bilirubin 1.4 mg/dl (0.2-1.0) H 12/17/21 00:32 AST 32 U/L (13-39) 12/17/21 00:32 ALT 28 U/L (7-52) 12/17/21 00:32 Alkaline Phosphatase 84 U/L (34-104) 12/17/21 00:32 Troponin I High Sens 30.8 pg/ml (0-20) H 12/17/21 15:37 B-Natriuretic Peptide 1274 pg/ml (0-100) H 12/17/21 07:17 Total Protein 5.6 gm/dl (6.0-8.3) L 12/17/21 00:32 Albumin 3.4 gm/dl (3.4-5.0) 12/17/21 00:32 Globulin 2.2 gm/dl (2.5-4.0) L 12/17/21 00:32 Albumin/Globulin Ratio 1.5 (0.9-2) 12/17/21 00:32 Procalcitonin 0.05 ng/ml (0-0.5) 12/17/21 07:17 Ethyl Alcohol mg/dL < 10.0 mg/dl (<10.0) 12/17/21 07:17 SARS-CoV-2 (PCR) NEGATIVE (Negative) 12/17/21 03:24 Influenza Type A (PCR) Negative (Neg) 12/17/21 03:24 Influenza Type B (PCR) Negative (Neg) 12/17/21 03:24 RSV (RT-PCR) Negative (Neg) 12/17/21 03:24 Impressions Chest X-Ray 12/18/21 08:07 XR chest 1V portable HISTORY: 66 years-old Male fluid overload acute shortness of breath COMPARISON: Chest radiograph 12/17/2021 TECHNIQUE: Portable AP view of the chest FINDINGS: The cardiac silhouette is enlarged. Prior median sternotomy. Left subclavian pacer/AICD. No pneumothorax. Layering pleural effusions with bibasilar consolidation, mildly progressed on the left. Pulmonary vascular congestion with interstitial coarsening appears stable. Degenerative changes of the shoulders and spine. IMPRESSION: 1. Cardiomegaly with unchanged pulmonary edema. 2. Layering pleural effusions with persistent bibasilar opacities, mildly progressed on the left. ACT 112: Negative or not required by law. The above report was generated using voice recognition software. It may contain grammatical, syntax or spelling errors. Electronically signed by: Jasen nIgram M.D. 12/18/2021 8:30 AM Hospital Course (1) Atrial fibrillation with RVR: 66yo male with PMHx of COPD on home O2 2L, HFrEF secondary to ICM with EF of 20- 25% per echo 11/29/21, AICD in place for history of VT/VF, AF, PE failure to thrive, and h/o laryngeal CA s/p chemo 2020 presented with shortness of breath. Hypoxia with Hypercapnia -likely 2/2 combination of acute COPD exacerbation, HFrEF, and Afib -ABG pH 7.29 -initially refused intubation, agreeable to bipap; became obtunded soon after. Family was spoken with in regards to next steps. Became agreeable to making patient DNR. He was also then placed on a morphine drip in preparations of possible comfort measures only. Overnight, BP began to fall and stabilized in the 70s/40s without pressors. POA was not able to be contacted but other son was comfortable continuing with current measures. Patient progressively began to decline. ICD was deactivated. Meds d/c'd except morphine drip. Family was able to be bedside with patient prior to his passing. Atrial fibrillation with RVR Patient presented in AF with RVR. -dilt drip, metoprolol, eliquis d/c'd COPD (chronic obstructive pulmonary disease) Suspect acute exacerbation of COPD contributing to overall clinical picture.BiPAP placed in ER.Initially somnolent, later became obtunded -ABG pH 7.29 pCO2 81 pO2 499 HCO3 39 -d/c'd Solumedrol 30mg TID, Azithromycin IV, albuterol CHF (congestive heart failure) Patient with HFrEF secondary to ICM.Most recent EF 20-15% on echo from [facility]. History of VT/VF with ICD in place. -given 60mg IV lasix total in ED, urine output 300ml -d/c'd metoprolol Pulmonary embolism Newly diagnosed at [place] earlier this month.Patient was started on anticoagulation with Apixaban. -hold eliquis unable to tolerate PO, d/c'd ETOH abuse: Uncertain how much patient was drinking -AWSS at risk -hold Thiamine/Folate, d/c'd (2) COPD (chronic obstructive pulmonary disease): (3) Pulmonary embolism: (4) ETOH abuse: (5) CHF (congestive heart failure): (6) Hypoxia: Total Time Total Time Spent Total Time Spent (In Minutes): 30 Discharge Plan Discharge Items Patient Disposition: Other Date/Time: 12/18/21 10:18 Supervising Physician Co-Signing Physician Notes Patient seen and examined independently of PGY-2 Dr. Adair. Agree with history, exam findings, assessment and plan of care as outlined. In brief, Mr. Pearl is a 66 year old male with history fo COPD (on 2L chronically), HFrEF with AICD (EF 20-25%), VT/VT, and prior PE admitted with dyspnea found to have afib with RVR, pulmonary edema. Overnight, became hypotensive so diltiazem gtt was stopped. Over the course of the morning, became hypotensive and continued to desatuarate despite BiPAP. Ultimately, succumbed to respiratory failure as he continued to decline despite BiPAP and diuresis. Family was present at the bedside. AICD was turned off, morphine gtt for air hunger. Time of 1018am. Discharge plannin minutes Resident Activity Tracking Resident Involvement: Resident Care Provided Care Provided: Adult Hospital Medicine
--- NOTE | 2021-12-18 13:57 | Death Pronouncement Note ---
Date of Service December 18, 2021 Pronouncement Note Admission Date Admission Date: December 17, 2021 Date and Time of Date of : 11/18/21 Time of : 10:18 Contributing Factors (1) Atrial fibrillation with RVR: (2) COPD (chronic obstructive pulmonary disease): (3) Pulmonary embolism: (4) ETOH abuse: (5) CHF (congestive heart failure): (6) Hypoxia: Hospital Course Hospital Course: 66yo male with PMHx of COPD on home O2 2L, HFrEF secondary to ICM with EF of 20- 25% per echo 11/29/21, AICD in place for history of VT/VF, AF, PE failure to thrive, and h/o laryngeal CA s/p chemo 2020 presented with shortness of breath. Hypoxia with Hypercapnia -likely 2/2 combination of acute COPD exacerbation, HFrEF, and Afib -ABG pH 7.29 -initially refused intubation, agreeable to bipap; became obtunded soon after. Family was spoken with in regards to next steps. Became agreeable to making patient DNR. He was also then placed on a morphine drip in preparations of possible comfort measures only. Overnight, BP began to fall and stabilized in the 70s/40s without pressors. POA was not able to be contacted but other son was comfortable continuing with current measures. Patient progressively began to decline. ICD was deactivated. Meds d/c'd except morphine drip. Family was able to be bedside with patient prior to his passing. Atrial fibrillation with RVR Patient presented in AF with RVR. -dilt drip, metoprolol, eliquis d/c'd COPD (chronic obstructive pulmonary disease) Suspect acute exacerbation of COPD contributing to overall clinical picture.BiPAP placed in ER.Initially somnolent, later became obtunded -ABG pH 7.29 pCO2 81 pO2 499 HCO3 39 -d/c'd Solumedrol 30mg TID, Azithromycin IV, albuterol CHF (congestive heart failure) Patient with HFrEF secondary to ICM.Most recent EF 20-15% on echo from [facility] [address] [facility]. History of VT/VF with ICD in place. -given 60mg IV lasix total in ED, urine output 300ml -d/c'd metoprolol Pulmonary embolism Newly diagnosed at [place] earlier this month.Patient was started on anticoagulation with Apixaban. -hold eliquis unable to tolerate PO, d/c'd ETOH abuse: Uncertain how much patient was drinking -AWSS at risk -hold Thiamine/Folate, d/c'd Additional Data Confirmation of : no pulse, no respirations, no heart sounds and pupils fixed and dilated Family: at bedside Attending/PCP notified?: Yes Attending physician: Reji Franz DO Resident Activity Tracking Resident Involvement: Resident Care Provided Care Provided: Adult Hospital Medicine
--- NOTE | 2021-12-22 08:20 | Coding Query ---
CONGESTIVE HEART FAILURE To Promote full compliance with coding requirements relating to patient care, physician participation is requested in all cases of training mgr uncertainty. Please assist us with the following questions. A diagnosis of Congestive Heart Failure is documented in the patient's medical record. To accurately code this diagnosis and to compare patient severity, we ask that you specify the type of heart failure by placing an X within the parenthesis (x). SYSTOLIC HEART FAILURE (x ) Acute ( ) Chronic ( ) Acute on Chronic ( ) Rheumatic ( ) Unknown DIASTOLIC HEART FAILURE ( x) Acute ( ) Chronic ( ) Acute on Chronic ( ) Rheumatic ( ) Unknown COMBINED SYSTOLIC AND DIASTOLIC HEART FAILURE ( x) Acute ( ) Chronic ( ) Acute on Chronic ( ) Rheumatic ( ) Unknown Was the CHF Present On Admission? Please check the appropriate box: ( x) Present on Admission ( ) Not Present On Admission ( ) Clinically undetermined Thank you Will [facility]
== END 2021-12-18 15:58 | disposition expired | DRG 189 ==
LOC: ED 00:17 → SUATTDRO 06:00 → EDINP 06:00 → 2E 07:00